=== PATIENT | male | born 1960 | race Caucasian/White ===

== ENCOUNTER 2018-05-04 20:37 | Inpatient (IN) ==
[2018-05-04] MEDS ORDERED: CATAPRES PO ONE ×2 (21:21→23:01)
--- NOTE | 2018-05-04 21:53 | Diag Imaging Result Doc PS360 ---
EXAM: KNEE 3 VIEWS LEFT 05/04/2018 HISTORY: fall, pain TECHNIQUE: Left knee three views COMMENT: There is no evidence of fracture or dislocation or periosteal reaction. There is some Maribell-Stieda calcification. Surgical clips are seen in the medial posterior thigh. IMPRESSION: No acute bony abnormality. Electronically signed by Gonzalez Gonzales 05/04/2018 9:50 PM
--- NOTE | 2018-05-04 21:54 | Diag Imaging Result Doc PS360 ---
EXAM: CHEST-1 VIEW 05/04/2018 HISTORY: chest pain TECHNIQUE: AP upright portable at 2137 COMMENT: There is ill-defined opacity in the medial right lower lobe. This is actually improved somewhat since the previous study of 10/08/2017. Otherwise there has been no significant change. IMPRESSION: Stable chest. Electronically signed by Gonzalez Gonzales 05/04/2018 9:51 PM
--- NOTE | 2018-05-04 21:54 | Diag Imaging Result Doc PS360 ---
EXAM: KNEE 3 VIEWS RIGHT 05/04/2018 HISTORY: right knee pain TECHNIQUE: Right knee three views COMMENT: There is calcification in the menisci. There is no evidence of acute fracture or dislocation. IMPRESSION: Chondrocalcinosis. No evidence of acute disease. Electronically signed by Gonzalez Gonzales 05/04/2018 9:52 PM
[2018-05-04 21:56] LABS: BASO# 0.04 X1000 (0.0-0.2); BASO% 0.4 % (0.0-0.8); EOS# 0.26 X1000 (0.0-0.7); EOS% 2.4 % (0.0-10.0); HEMATOCRIT 47.9 % (42.0-52.0); HEMOGLOBIN 14.8 g/dL (14.0-18.0); IMM GRAN# 0.02 X1000 (0.0-0.04); IMM GRAN% 0.2 % (0.0-0.5); LYMPH# 2.59 X1000 (1.2-3.4); LYMPH% 24.3 % (20.5-51.1); MCH 27.1 PG (27-31); MCHC 30.9 g/dL (33-37); MCV 87.7 FL (81-99); MONO# 1.01 X1000 (0.11-0.59); MONO% 9.5 % (1.7-9.3); MPV 12.2 FL (7.4-10.4); NEUT# 6.76 X1000 (1.4-6.5); NEUT% 63.2 % (42.2-75.2); PLT 222 X1000 (130-400); RBC 5.46 XMIL (4.7-6.1); RDW 13.7 % (11.5-14.5); WBC 10.68 X1000 (4.8-10.8)
[2018-05-04 21:57] LABS: AGAP 14; ALB/GLOB RATIO 1.9; ALBUMIN 4.7 g/dL (3.5-5.0); ALKALINE PHOSPHATASE 87 U/L (32-122); BUN 14 mg/dL (8-22); CALCIUM 9.6 mg/dL (8.8-10.2); CHLORIDE 99 mmol/L (98-107); CK TOTAL 59 U/L (24-204); COSMO 276; CREATININE 0.8 mg/dL (0.7-1.2); ESTIMATED GFR > 60; GLUCOSE 102 mg/dL (70-104); GOT 15 U/L (10-34); GPT 9 U/L (10-44); SODIUM 138 mmol/L (136-145); TCO2 25 mmol/L (25-35); TOTAL BILIRUBIN 0.34 mg/dL (0.20-1.00); TOTAL PROTEIN 7.2 g/dL (6.3-8.3)
[2018-05-04 22:21] LABS: URINE SOURCE CLEAN CATCH
[2018-05-04 22:25] LABS: BILIRUBIN URINE NEGATIVE (NEGATIVE); BLOOD URINE MODERATE (NEGATIVE); COLOR YELLOW; GLUCOSE URINE NEGATIVE (NEGATIVE); KETONE URINE NEGATIVE (NEGATIVE); LEUKOCYTES URINE NEGATIVE (NEGATIVE); NITRITE URINE NEGATIVE (NEGATIVE); PH URINE 5.5; PROTEIN URINE TRACE mg/dL (NEGATIVE); SP GRAVITY URINE 1.013; TURBIDITY URINE CLEAR (CLEAR); UR EPITHELIAL CELLS <10 /HPF (<10); URINE BACTERIA NEGATIVE /HPF; URINE RBC <10 /HPF (<10); URINE WBC <10 /HPF (<10); UROBILINOGEN URINE NORMAL (NORMAL)
[2018-05-04 22:40] LABS: UR AMPHETAMINES QUAL NONE DETECTED (NONE DETECT); UR BARBITUATES QUAL NONE DETECTED (NONE DETECT); UR BENZODIAZEPIN QUAL PRESUMPTIVE POSITIVE (NONE DETECT); UR CANNABINOIDS QUAL NONE DETECTED (NONE DETECT); UR COCAINE QUAL NONE DETECTED (NONE DETECT); UR METHADONE QUAL NONE DETECTED (NONE DETECT); UR OPIATES QUAL PRESUMPTIVE POSITIVE (NONE DETECT); UR OXYCODONE QUAL NONE DETECTED (NONE DETECT); UR PCP QUAL NONE DETECTED (NONE DETECT)
[2018-05-04] MEDS ORDERED: DILAUDID IV ONE (23:01)
[2018-05-04] MEDS ORDERED: ZOFRAN IV ONE (23:01)
[2018-05-04] MEDS ORDERED: LASIX IV ONE (23:57)
--- NOTE | 2018-05-05 01:54 | PROVIDER DOCUMENTATION ---
This chart was entered by Luz Nagy Scribe, acting as scribe for Sonu Espinoza MD. HPI-General Adult - General Chief Complaint: Chest Pain Stated Complaint: cp Time Seen by Provider: 05/04/18 20:58 Source: patient Allergies/Adverse Reactions: Patient Allergies Allergy/AdvReac Type Severity Reaction Status Date / Time quetiapine [From Seroquel] Allergy Mild Unknown Verified 05/04/18 21:42 acetaminophen Allergy FLUSHING Verified 05/04/18 21:42 [From Darvocet-N] codeine Allergy ABDOMINAL Verified 05/04/18 21:42 PAIN Penicillins Allergy Unknown Verified 05/04/18 21:43 propoxyphene napsylate * Allergy FLUSHING Verified 05/04/18 21:42 [From Darvocet-N] ketorolac tromethamine * AdvReac NAUSEA Verified 05/04/18 21:42 [From Toradol] naproxen AdvReac Unknown Verified 05/04/18 21:42 tramadol HCl * [From Ultram] AdvReac NAUSEA Verified 05/04/18 21:42 Home Medications: Home Medication List Medication Instructions Recorded Confirmed Last Taken Type Aspirin 81 mg PO DAILY 09/12/13 10/08/17 09/19/16 History 81 MG Albuterol Sulfate [Proair Hfa] 8.5 gm INH BID 02/21/14 10/08/17 09/19/16 History 8.5 GM Alprazolam [Xanax] 0.5 mg PO BID 10/08/17 10/08/17 Unknown History Amlodipine [Norvasc] 5 mg PO DAILY 10/08/17 10/08/17 Unknown History Budesonide/Formoterol Fumarate 10.2 gm IH BID 10/08/17 10/08/17 Unknown History [Symbicort 160-4.5 Mcg Inhaler] Calamine/Zinc Oxide [Baby Anti 85 gm TP DIRECTED 10/08/17 10/08/17 Unknown History Monkey Butt Cream] Guaifenesin [Guaifenesin ER] 600 mg PO BID 10/08/17 10/08/17 Unknown History Hydrocodone/Acetaminophen [[place] 1 each PO DIRECTED 10/08/17 10/08/17 Unknown History 10-325 Tablet] Isosorbide Mononitrate E.r. [Imdur] 30 mg PO DAILY 10/08/17 10/08/17 Unknown History Lidocaine 5% Patch [Lidoderm] 1 each TOP DAILY #60 patch 10/08/17 Unknown Rx Lisinopril 20 mg PO BID 10/08/17 10/08/17 Unknown History Metoprolol [Lopressor] 100 mg PO DAILY 10/08/17 10/08/17 Unknown History Nicotine [Nicotine Patch] 1 each TD DIRECTED 10/08/17 10/08/17 Unknown History Omeprazole [Prilosec] 20 mg PO DAILY@0700 10/08/17 10/08/17 Unknown History ROSUVAstatin [Crestor] 10 mg PO DAILY 10/08/17 10/08/17 Unknown History Mupirocin Cream [Bactroban Cream] 1 applicatn TOP TID #1 tube 02/08/18 Unknown Rx Oxymetazoline Nasal [place] [Afrin 2 spray ADAM Q12HR #1 bottle 02/08/18 Unknown Rx Nasal [place]] - History of Present Illness -Gen Adult Nature of Presenting Problems: Pt is 58/M presenting to ED via EMS. he sts that he has mid chest pain that goes down into his legs. He says it feels like it comes from his bones. Pt sts that around 4pm he passed out on the bed and sts that he wet himself, his partner found him when she got home around 8pm. Pt also c/o knot on stomach and base of penis that has been present for the last 2 months. Pt has hx of CABG Location of Pain/Injury: reports: lower body Pain Radiation: reports: no radiation Quality of Pain: reports: aching Severity: reports: moderate Onset/Duration: reports: just prior to arrival Timing: reports: still present Context/Activities at Onset: reports: none Modifying Factors: improves with: nothing Associated Symptoms: reports: denies symptoms. denies: fever/chills, headaches , nausea, shortness of breath, vomiting Similar Symptoms Previously?: No Recently seen or treated by another doctor?: No Review of Systems - Adult - REVIEW OF SYSTEMS - ADULT Constitutional: reports: no symptoms reported. denies: chills, fever Eyes: reports: no symptoms reported Ears, Nose, Mouth & Throat: reports: no symptoms reported Cardiovascular: reports: chest pain Respiratory: reports: no symptoms reported. denies: cough, shortness of breath , wheezing Gastrointestinal: reports: no symptoms reported Genitourinary: reports: no symptoms reported Musculoskeletal: reports: muscle aches (both legs) Integumentary: reports: no symptoms reported Neurological: reports: no symptoms reported. denies: dizziness/vertigo, headache/migraines Psychiatric: reports: no symptoms reported Endocrine: reports: no symptoms reported Hematologic/Lymphatic: reports: no symptoms reported Allergic/Immunologic: reports: no symptoms reported All Other Systems: Reviewed and Negative Past History - Adult - PAST MEDICAL HISTORY-ADULT Review of Records: reports: Old Records Reviewed, Nursing Assessment Review, Medications Reviewed, Social history reviewed & non-contributory. Major Childhood Illnesses: reports: denies history Cardiovascular: reports: HTN, hyperlipidemia, HI (2003) Gastrointestinal: reports: GERD Psychiatric: reports: anxiety Endocrine/Immune: reports: Diabetes Other Conditions: reports: other (back problems) - PRIOR SURGERIES/PROCEDURES Surgical/Procedure History: reports: CABG, back/neck, other (facial repair and back repair) - IMMUNIZATION STATUS Childhood Immunizations: See Nurse Assessment Flu Vaccine: See Nurse Assessment - SOCIAL HISTORY Smoking: less than 1 pack/day Substance Use: none/never Alcohol Use Frequency: never Living Situation: family Physical Exam-General - PHYSICAL EXAM-ADULT Initial Vital Signs Reviewed: Yes - CONSTITUTIONAL General Appearance: appears well, alert, no apparent distress, other (bad dentation) - EYES Eyes: PERRL/EOMI - HEAD, EARS, NOSE, MOUTH & THROAT HENMT: normocephalic/atraumatic, moist mucous membranes, normal ENT inspection, TMs normal, pharynx normal - NECK Neck: non-tender, full range of motion, supple, normal inspection - RESPIRATORY Respiratory: chest non-tender, lungs clear, normal breath sounds - CARDIOVASCULAR Cardiovascular: regular rate, rhythm, no edema - GASTROINTESTINAL (ABDOMEN) Abdominal Exam: normal bowel sounds, non tender, soft, hernia (umbilical hernia present upon exam) - GENITOURINARY Male Genitalia: normal genitalia, uncircumcised - MUSCULOSKELETAL Back Exam: normal inspection Extremity: normal range of motion, non-tender, normal gait, normal inspection - SKIN Integumentary: normal color, normal turgor, warm/dry - NEUROLOGIC Neurologic: grossly normal - PSYCHIATRIC Psych/Mental Status: normal mood/affect, normal thought content, normal thought process, oriented x 3 Progress - PLAN OF CARE/RESULTS Progress/Plan/Lab Results: Vital Signs - 8 hr 05/04/18 20:46 05/04/18 20:59 05/04/18 21:00 Temperature 98 F 97.5 F L Pulse Rate 100 H 95 H 97 H Respiratory Rate 20 20 14 Blood Pressure 181/119 188/126 173/119 O2 Sat by Pulse Oximetry 94 L 95 95 05/04/18 21:01 05/04/18 21:02 05/04/18 21:10 Temperature Pulse Rate 95 H 97 H 110 H Respiratory Rate 21 21 24 Blood Pressure 188/126 O2 Sat by Pulse Oximetry 95 94 L 94 L 05/04/18 21:20 Temperature Pulse Rate 95 H Respiratory Rate 21 Blood Pressure O2 Sat by Pulse Oximetry 95 Orders Category Date Time Status CHEST-1 VIEW [RAD] Stat Exams 05/04/18 21:19 Ordered KNEE 3 VIEWS LEFT [RAD] Stat Exams 05/04/18 21:20 Ordered KNEE 3 VIEWS RIGHT [RAD] Stat Exams 05/04/18 21:19 Ordered CBC WITH ELECTRONIC DIFF [HEME] Stat Lab 05/04/18 21:13 Uncollected CK TOTAL [CHEM] Stat Lab 05/04/18 21:19 Uncollected COMPREHENSIVE METABOLIC PANEL [CHEM] Stat Lab 05/04/18 21:19 Uncollected PRO B-NATRIURETIC PEPTIDE Stat Lab 05/04/18 21:19 Uncollected TROPONIN T Stat Lab 05/04/18 21:19 Uncollected UA [URINALYSIS] [URINALYSIS] Stat Lab 05/04/18 21:20 Uncollected URINE DRUG SCREEN Stat Lab 05/04/18 21:20 Uncollected Clonidine [Catapres] Med 05/04/18 21:21 Discontinued 0.1 mg PO NOW ONE EKG [EKG] Stat Ther 05/04/18 20:36 Ordered Result Diagrams: 05/04/18 21:12 05/04/18 21:12 - CONSULTS/PCP/HOSPITALIST Notification #1 *Consult/PCP/Hospitalist*: Dr Hudson Time Discussed: 01:53 Consult Disposition: Will see in ED, Admit Departure - Departure Date of Disposition Decision: 05/05/18 Time of Disposition Decision: 01:53 DIAGNOSIS: Chest pain, HTN (hypertension) Disposition: ADMITTED INPATIENT 09 Certified Medical Emergency: Emergent Condition: Fair Referrals and Follow-Ups: None,PCP [Primary Care Provider] - - Critical Care Note This patient required my direct & personal management of CC.: No Attestation - Physician/ ADAN Attestation Patient care was provided by Advanced Practice Provider:: No The physician spent face to face time with patient:: Yes Advanced Practice Provider documentation review:: Supervising physician onsite and consulted in the evaluation and care of this patient. The physician did have a face to face encounter with the patient. This chart was documented by the indicated scribe, (Luz Nagy, Nate) and accurately reflects the services I performed and decisions made by me, Sonu Espinoza MD, as attested by the provider's signature.
[2018-05-05] MEDS ORDERED: ZOFRAN IV PRN (03:05)
[2018-05-05] MEDS ORDERED: TYLENOL PO PRN (03:05)
[2018-05-05] MEDS ORDERED: NITROGLYCERIN SL PRN (03:05)
[2018-05-05] MEDS: LOVENOX SUBQ SCH (04:30)
[2018-05-05 05:25] LABS: HEMOGLOBIN A1C 5.5 % (4.8-6.0)
--- NOTE | 2018-05-05 05:25 | HISTORY AND PHYSICAL ---
CHIEF COMPLAINT: Chest pain. HISTORY OF PRESENT ILLNESS: This is a 58-year-old male who comes into the emergency room with the complaint of chest pain midsternal. He states that it radiates down into his legs. Feels as if it is coming out of his bones. He did not note it radiating to his neck, back, jaw or arms. Also had a complaint of feeling as if he has a knot on his stomach which appears to be an umbilical hernia. Also feels like he has a knot at the base of the glans of his penis. States both have been present for around 2 months. He has a history of coronary artery disease, hypertension, hyperlipidemia, diabetes mellitus type 2, anxiety, GERD, status post myocardial infarction and CABG. Chest x-ray was grossly normal. Laboratory data was grossly normal. He will be admitted for further evaluation and treatment. PAST MEDICAL HISTORY: See HPI. PREVIOUS SURGICAL HISTORY: 1. CABG. 2. Back surgery. 3. Facial repair. FAMILY HISTORY: Positive for coronary artery disease and diabetes mellitus. SOCIAL HISTORY: No alcohol or illicit drugs. Lives with family. Smokes less than a pack of cigarettes per day, has for multiple years. Smoking cessation was gone over with the patient. He denies wanting to quit at this time. ALLERGIES: Seroquel, Darvocet, codeine, penicillin, Toradol, Ultram and naproxen. HOME MEDICATIONS: A list of home medications has not been reconciled. An order was placed for Nursing to reconcile home medications and place in the computer. The patient was able to tell me he took [place] for pain as well as Xanax an unknown dose for anxiety. Also states that he takes blood pressure and cholesterol medications. We will restart when reconciled. REVIEW OF SYSTEMS: Fourteen point review of systems conducted with the patient. Pertinent positives listed above in the HPI. All other systems reviewed and found to be negative. PHYSICAL EXAMINATION: VITAL SIGNS: Temperature 97.5, pulse 70, respirations 13, blood pressure 91/56 , oxygen saturation 96% on room air. GENERAL: A 58-year-old male lying in the ER stretcher, answers all questions appropriately. He is alert and oriented times 3, is in no acute distress. HEENT: Head is atraumatic, normocephalic. Pupils equal, round, reactive to light. Extraocular eye movement is intact. Sclerae are anicteric. Conjunctiva is pink. Oral mucosa is mildly dry. Poor dentition noted. NECK: Supple. No JVD. No thyromegaly. Trachea is midline. No cervical lymphadenopathy. CARDIAC: S1, S2 appreciated. No murmurs, gallops, rubs. LUNGS: Clear to auscultation bilaterally. Decreased bilaterally. No rhonchi, wheezes, rales. Symmetric rise and fall with respirations. ABDOMEN: Soft, nondistended, nontender. Bowel sounds present all 4 quadrants, normoactive. No pulsatile mass. No organomegaly. Reducible umbilical hernia noted. GENITOURINARY: No bladder distention. Uncircumcised. Otherwise normal examination. EXTREMITIES: No clubbing, cyanosis, or edema. Two-plus pedal pulses bilaterally. NEUROLOGICAL: Alert and oriented times 3. Cranial nerves II through XII grossly intact. DIAGNOSTIC DATA: Chest x-ray: There is an ill-defined opacity in the medial right lower lobe. X- ray of left knee: No acute bony abnormality. LABORATORY DATA: CBC and chemistry within normal limits. ProBNP mildly elevated at 704. CK 59. Troponin less than 0.010. Urine: Moderate blood. Positive for opiates and benzodiazepines in his urine drug screen. ASSESSMENT AND PLAN: 1. Chest pain, rule out acute myocardial infarction. Order an echocardiogram tomorrow morning. Patient was hypertensive which has been controlled in the emergency room. We will continue home medications and continue to monitor when they are reconciled. Nitroglycerin as needed for chest pain. Trend cardiac enzymes. We will also order a CT of thorax as there was noted to be an ill-defined opacity which was noted to be better than on previous examination. 2. Hypertension. Continue home medications when reconciled. He was given clonidine in the emergency room and is now normotensive. 3. Hyperlipidemia. Continue statin when reconciled. We will check a lipid profile as well. 4. Chronic pain syndrome. We will continue patient's Q[place] when reconciled. At this time, we will give [place] 7.5 q.4 hours as needed for pain. 5. Tobacco use. Smoking cessation was gone over with the patient. He denies wanting to quit at this time. Further recommendations per patient clinical course. Dictated by SARAH Fonseca for Collins Hudson MD I have performed a face to face diagnostic evaluation. Labs and Xrays- reviewed. Exam- chest- clear A/P- Chest Pain- Admit- cardiac workup Dr. Hudson cc: SARAH Fonseca MD MTDD
[2018-05-05 06:32] LABS: BASO# 0.03 X1000 (0.0-0.2); BASO% 0.3 % (0.0-0.8); EOS# 0.22 X1000 (0.0-0.7); HEMATOCRIT 45.8 % (42.0-52.0); HEMOGLOBIN 13.9 g/dL (14.0-18.0); LYMPH# 2.64 X1000 (1.2-3.4); LYMPH% 24.4 % (20.5-51.1); MCH 27.4 PG (27-31); MCHC 30.3 g/dL (33-37); MCV 90.2 FL (81-99); MONO# 1.24 X1000 (0.11-0.59); MONO% 11.4 % (1.7-9.3); NEUT# 6.71 X1000 (1.4-6.5); NEUT% 61.9 % (42.2-75.2); PLT 240 X1000 (130-400); RBC 5.08 XMIL (4.7-6.1); RDW 14.2 % (11.5-14.5); WBC 10.84 X1000 (4.8-10.8)
[2018-05-05 07:11] LABS: AGAP 16; BUN 16 mg/dL (8-22); CALCIUM 9.6 mg/dL (8.8-10.2); CHLORIDE 98 mmol/L (98-107); COSMO 279; CREATININE 0.9 mg/dL (0.7-1.2); ESTIMATED GFR > 60; GLUCOSE 102 mg/dL (70-104); MAGNESIUM 1.7 mg/dL (1.5-2.7); POTASSIUM 4.3 mmol/L (3.5-5.1); SODIUM 139 mmol/L (136-145); TCO2 25 mmol/L (25-35)
--- NOTE | 2018-05-05 07:39 | Diag Imaging Result Doc PS360 ---
EXAM: CT THORAX W/O CONTRAST 05/05/2018 HISTORY: pneumonia? TECHNIQUE: This exam was performed using automated exposure control, adjustment of mA or kV according to patient size, and/or use of iterative reconstruction technique. COMMENT: There are emphysematous changes with subpleural blebs bilaterally. There is a linear opacity throughout much of the right lower lobe. There are no previous studies. This may be result of fibrosis and/or atelectasis. There is some pleural thickening and/or atelectatic or fibrotic change in the medial portion of the right middle lobe. A similar appearance is present in the lingula. There is extensive coronary calcification. There has been previous sternotomy. There are no abnormal fluid collections. There is a 16 mm cyst in the posterior right hepatic lobe. Otherwise there is no evidence of acute disease in the visualized portion of the abdomen. There is no evidence of significant adenopathy. There is no evidence of acute bony abnormality. IMPRESSION: Atelectatic and/or fibrotic changes in the right lower lobe, right middle lobe and lingula. COPD. Electronically signed by Gonzalez Gonzales 05/05/2018 7:36 AM
[2018-05-05] MEDS: PRILOSEC PO SCH ×2 (08:10→08:20)
--- NOTE | 2018-05-05 18:16 | CONSULTATION ---
DATE OF CONSULTATION: 05/05/2018 IMPRESSION: 1. Atypical chest pain with associated cough and some hemoptysis. 2. Atherosclerotic coronary disease with previous coronary bypass surgery in the past. Details not clear. Patient relates having a stress nuclear study in [place] in the last 6 weeks which was negative. Records not available at time of dictation. 3. COPD. 4. Chronic heavy cigarette use. 5. Hypertension. 6. Hyperlipidemia. 7. Type 2 diabetes mellitus. 8. Psychiatric disorder of unclear nature. Patient manifests continuous stream of loosely associated thoughts many of which seem delusional. RECOMMENDATIONS: 1. Followup echocardiography. 2. Obtain results of recent stress myocardial perfusion study if available and if indeed this was performed. If this was negative, would consider alternative etiologies for patient's atypical chest pain such as recurrent bronchitis. 3. Smoking cessation strongly advised. HISTORY: This 58-year-old white male with past history of previous coronary bypass grafting several years ago in [place], hypertension, hyperlipidemia, type 2 diabetes mellitus and ill defined psychiatric disorder was admitted to emergency room with multiple complaints some which include chest discomfort as well as hemoptysis. He expressed to me he has a fear that he was bleeding around his heart. He indicates some left parasternal discomfort which is nonexertional. He characterizes symptoms rather vaguely. He has had cough productive of white sputum with some hemoptysis. He is not aware of any fever. PAST MEDICAL HISTORY: 1. Atherosclerotic coronary disease with previous coronary bypass grafting in the past. 2. Hypertension. 3. Hyperlipidemia. 4. Type 2 diabetes mellitus. 5. Gastroesophageal reflux disease. 6. Ill-defined psychiatric disorder. PAST SURGICAL HISTORY: Includes coronary bypass grafting, unspecified back surgery and unspecified facial repair. ALLERGIES: Allergic or intolerant to multiple medications as listed. It is noteworthy that Seroquel is on the list as well as Toradol, Ultram and naproxen. Also intolerant of penicillin, codeine and Darvocet. SOCIAL HISTORY: The patient describes chronic cigarette use at ill defined rate. He does not use alcohol or illicit drugs. FAMILY HISTORY: Positive for coronary disease. REVIEW OF SYSTEMS: Pulmonary: Noteworthy for cough and wheezing. He has also had sputum production as well as some hemoptysis. Gastrointestinal: Noncontributory beyond history of present illness. Constitutional: Negative for fever. Remainder of review of systems negative/noncontributory with 14 total systems reviewed. PHYSICAL EXAMINATION: This is a middle-aged white male who appears older than stated age.Vital Signs: Blood pressure 141/88, heart rate 98, oxygen saturation 97%. HEENT: Extraocular movements intact. Mucous membranes are moist. Neck: Supple. No jugular venous distention. There are no carotid bruits. Chest: Auscultation of chest reveals prominent scattered expiratory wheezes. Patient promptly developed significant cough when he tries to take a deep breath. Cardiac Exam: Reveals a regular rate and rhythm without appreciable murmur or gallop. Abdomen: Soft, nontender. Bowel sounds are audible. Extremities: Without edema. Neurologic: Reveals him to be alert and responsive. Speech is fluent. He moves all 4 extremities equally well. Skin: Warm and dry. Psychiatric: Reveals him to demonstrate a constant stream of conversation with loosely associated thoughts as well as some seemingly delusional thinking. DATA: EKG not yet scanned into electronic medical record. LABORATORY DATA: Includes a white blood cell count 10.84, hematocrit 45.8, hemoglobin 13.9, platelet count 240,000. Sodium 139, potassium 4.3, chloride 98, carbon dioxide 25, BUN 16, creatinine 0.9, glucose 102. Initial troponin less 0.01. Followup troponin less than 0.01. CPK 59, followup CPK 66. Urine drug screen positive for opiates and benzodiazepines. Is noteworthy that patient has both hydrocodone and Xanax on his medication list. cc: Daniel Castle MD
[2018-05-05] MEDS: NORCO-7.5 PO PRN (21:54)
[2018-05-05] MEDS ORDERED: SYMBICORT 160/4.5 MICROGM INHALER INH SCH (23:15)
[2018-05-05] MEDS: XANAX PO SCH (23:27)
[2018-05-06] MEDS: MUCINEX PO SCH ×3 (00:19→20:37)
[2018-05-06] MEDS: BACTROBAN CREAM TOP SCH ×4 (00:20→23:28)
[2018-05-06] MEDS: LOPRESSOR PO SCH ×3 (00:20→20:37)
[2018-05-06] MEDS: LOVENOX SUBQ SCH (03:20)
[2018-05-06] MEDS: PRILOSEC PO SCH (06:42)
[2018-05-06] MEDS ORDERED: NICOTINE TD SCH (07:30)
[2018-05-06] MEDS ORDERED: DUONEB (A & A) INH PRN (07:40)
[2018-05-06] MEDS ORDERED: XANAX PO SCH (09:00)
[2018-05-06] MEDS ORDERED: VENTOLIN HFA INH SCH (09:00)
--- NOTE | 2018-05-06 09:01 | PROGRESS NOTE ---
DATE: 05/06/2018 SUBJECTIVE: The patient reports still complaining of chest pain, substernal, but according to him, it goes through the stomach, to the abdomen and reaches the testicles. He reports also having a lot of greenish sputum coming on that he thinks is also contributing to this chest pain as well. OBJECTIVE: Vital Signs: Temperature 98.5 degrees, heart rate 65, respiratory rate 12, blood pressure 113/56, O2 saturation 98% on 2 L nasal cannula. General Examination: This is a chronically ill-looking, 58-year-old, male, lying in bed, in no acute distress. HEENT: Head is normocephalic and atraumatic. Poor dentition. Mucous membranes dry. Neck: Supple. No JVD noted. No carotid bruits. No lymphadenopathy. No thyromegaly. Cardiovascular Examination: S1 and S2 heard. No murmurs, gallops, or rubs. Regular rate and rhythm. Respiratory Examination: Coarse breath sounds and rhonchi in both pulmonary bases along with minimal wheezing. Patient is not using any accessory muscles or having work of breathing. Abdomen: Soft, nontender to palpation. Bowel sounds present. No organomegaly. Extremities: No clubbing, cyanosis, or edema. Peripheral pulses present in both legs. Neurological Examination: The patient is alert and oriented x3. Moves 4 extremities. Lab: There are no labs from today but from yesterday, white cell count was slightly elevated at 10.84. Normal BMP. Troponin has been checked four times and it has been negative. Last time that we had checked was yesterday at 7:26 p.m. ASSESSMENT AND PLAN: 1. Chest pain. We have checked four times the troponins and those are negative so an acute coronary syndrome has been ruled out. The patient continues to complain of chest pain that is somewhat atypical. At this time, an echocardiogram is done but it has not been read yet. We will see what it shows. According to the patient, also, he had a recent stress myocardial perfusion study that we are waiting for cardiology to read. I think, considering his symptoms of sputum production, greenish, and also a marked cough, I think this patient has an acute bronchitis. I am going to start antibiotics on him and breathing treatments as well. We will see how this patient does. 2. Hypertension. Blood pressure is under control. We will continue with the same management. 3. Hyperlipidemia. Triglycerides are elevated but cholesterol level is okay at this point. We will continue with the same management. 4. Chronic pain syndrome. At this point, the patient has been started on [place] 7.5 mg 1 tablet by mouth every 4 hours. 5. Tobacco abuse. Patient has been strongly advised about stopping smoking. 6. Disposition. At this point, we will monitor him in [facility]. We will check with cardiology if this patient can be transferred to a different floor. We will see if they are planning to do any further cardiovascular examinations or not. cc: Jerrell Redding MD
[2018-05-06] MEDS: PRINIVIL PO SCH (09:03)
[2018-05-06] MEDS: CRESTOR PO SCH (09:03)
[2018-05-06] MEDS: ASPIRIN PO SCH (09:03)
[2018-05-06] MEDS: XANAX PO SCH ×2 (09:03→20:37)
[2018-05-06] MEDS: NORVASC PO SCH (09:03)
[2018-05-06] MEDS: IMDUR PO SCH (09:04)
[2018-05-06] MEDS: LEVAQUIN 750 MG/D5W 750 MG/150 ML IVPB IV SCH (09:09)
[2018-05-06] MEDS: LIDODERM TOP SCH (09:10)
--- NOTE | 2018-05-06 09:44 | ECHO REPORT ---
ORDER DATE: 05/05/2018 MEASUREMENTS: Left ventricular end-diastolic diameter 4.6, end-systolic diameter 3.3, septal thickness 1.5, aortic root 4.2, left atrium 3.9. SUMMARY: 1. Technically difficult study due to limited acoustic window quality. 2. Aortic valve is trileaflet and opens normally on 2-dimensional images. The peak gradient across the aortic valve is less than 10 mmHg. Mitral, tricuspid, and pulmonic valves are without evidence of structural abnormality with trace mitral regurgitation and trace pulmonic insufficiency. The pulmonic valve is not well demonstrated. The aortic root is mildly enlarged. 3. Normal left ventricular upper chamber size with moderate concentric left ventricular hypertrophy demonstrated. The estimated left ventricular ejection fraction appears to be approximately 55%. No focal wall motion abnormalities can be appreciated. Doppler suggests grade 1 left ventricular diastolic dysfunction. Left atrium is borderline enlarged. Right atrium and right ventricle are normal in size with grossly preserved right ventricular systolic function. 4. No pericardial effusion. 5. Appearance of inferior vena cava suggests normal central venous pressure. cc: MD James Zhao CRNP
[2018-05-06] MEDS: ROCEPHIN 2 GM in NS 50 ML IV SCH (10:24)
[2018-05-06] MEDS: DUONEB (A & A) INH SCH ×4 (11:53→23:20)
[2018-05-06] MEDS: NORCO-7.5 PO PRN ×2 (17:40→20:40)
--- NOTE | 2018-05-06 21:03 | PROGRESS NOTE ---
DATE: 05/06/2018 SUBJECTIVE: The patient reports some improvement in his cough and sputum production. He complains of lower back discomfort. He has a lot of somatic complaints and essentially seems to hurt all over. He does not describe any chest symptoms that sound like angina. OBJECTIVE: Blood pressure 132/80, heart rate 74, oxygen saturation 97%. There is no significant jugular venous distention. Auscultation chest reveals scant rhonchi. There has been significant improvement in air movement. Cardiac exam reveals a regular rate and rhythm without appreciable murmur or gallop. There is no evidence of peripheral edema. LABORATORY DATA: Includes initial troponin less than 0.01, followup troponin less than 0.01. Records from [facility] obtained. He had negative stress myocardial perfusion study 6 months ago and records indicate a very similar hospitalization at that time with COPD exacerbation, chest pain and cough. IMPRESSION: 1. Atypical chest pain with associated cough and some hemoptysis. I suspect he has acute pulmonary infectious process probably bronchitis, which is recurrent. 2. Atherosclerotic coronary disease with previous coronary bypass grafting. The patient had negative stress myocardial study approximately 6 months ago. Serial cardiac enzymes this admission normal. 3. Chronic obstructive pulmonary disease. 4. Chronic heavy cigarette use. 5. Hypertension. 6. Hyperlipidemia. 7. Type 2 diabetes mellitus. 8. Psychiatric disorder of unclear nature. Records indicate history of anxiety. However he does seem to have some tendency for speaking a stream of loosely associated topics and some things he has said seem to represent delusions or possibly confabulation. RECOMMENDATIONS: 1. He appears clinically stable from a standpoint of his cardiac disease. Continued medical management is most appropriate. 2. Agree with plans to treat him for acute pulmonary process/bronchitis. 3. Smoking cessation again strongly advised. 4. Be reasonable for him to be discharged home to pursue outpatient therapy in next 24 hours. cc: Daniel Castle MD
[2018-05-07] MEDS: DUONEB (A & A) INH SCH ×3 (03:30→11:24)
[2018-05-07] MEDS: LOVENOX SUBQ SCH (04:00)
[2018-05-07] MEDS: NORCO-7.5 PO PRN (04:07)
[2018-05-07] MEDS: PRILOSEC PO SCH (06:55)
[2018-05-07 07:34] VITALS: BP 115/84
[2018-05-07] MEDS: ROCEPHIN 2 GM in NS 50 ML IV SCH (07:44)
[2018-05-07] MEDS ORDERED: LEXISCAN ONE (09:28)
[2018-05-07] MEDS ORDERED: AMINOPHYLLINE ONE (09:58)
[2018-05-07] MEDS: MUCINEX PO SCH (11:09)
[2018-05-07] MEDS: LEVAQUIN 750 MG/D5W 750 MG/150 ML IVPB IV SCH (11:09)
[2018-05-07] MEDS: CRESTOR PO SCH (11:09)
[2018-05-07] MEDS: ASPIRIN PO SCH (11:09)
[2018-05-07] MEDS: NORVASC PO SCH (11:10)
[2018-05-07] MEDS: PRINIVIL PO SCH (11:10)
[2018-05-07] MEDS: LOPRESSOR PO SCH (11:10)
[2018-05-07] MEDS: XANAX PO SCH (11:10)
[2018-05-07] MEDS: IMDUR PO SCH (11:10)
--- NOTE | 2018-05-07 11:26 | EKG Report ---
Test Performed on : 05/04/2018 8:41:30 PM Test Reason : CP Blood Pressure : / mmHG Vent. Rate : 100 BPM Atrial Rate : 100 BPM P-R Int : 158 ms QRS Dur : 112 ms QT Int : 360 ms P-R-T Axes : 050 007 084 degrees QTc Int : 464 ms Normal sinus rhythm. Possible Left atrial enlargement Inferior infarct (cited on or before 12-SEP-2013) Cannot rule out Anterior infarct , age undetermined Abnormal ECG When compared with ECG of 08-OCT-2017 18:15, (Unconfirmed) No significant change was found Unconfirmed Result
[2018-05-07] MEDS: LIDODERM TOP SCH (11:42)
--- NOTE | 2018-05-07 14:50 | EKG Report ---
Test Performed on : 05/05/2018 05:09:13 AM Test Reason : cp Blood Pressure : / mmHG Vent. Rate : 088 BPM Atrial Rate : 088 BPM P-R Int : 148 ms QRS Dur : 108 ms QT Int : 384 ms P-R-T Axes : 048 028 118 degrees QTc Int : 464 ms Normal sinus rhythm. Inferior infarct (cited on or before 12-SEP-2013) ST & T wave abnormality, consider lateral ischemia Abnormal ECG When compared with ECG of 04-MAY-2018 20:41, (Unconfirmed) No significant change was found Unconfirmed Result
--- NOTE | 2018-05-07 15:35 | Diag Imaging Result Document ---
PROCEDURE NAME: MYOCARDIAL PERF SCAN, STR/REST - 05/07/2018 STUDY: Rest/stress Lexiscan myocardial perfusion study. REQUESTING PHYSICIAN: Dr. Benson. INDICATION: Chest pain. Abnormal EKG. DESCRIPTION: The patient came into the nuclear lab, received a rest injection of technetium-99 sestamibi 15.4 mCi. Multiple tomographic views of the cardiac structures were obtained at rest. Subsequently, the patient underwent infusion of Lexiscan per protocol. At peak infusion was injected with technetium-99 sestamibi 42.8 mCi. Multiple tomographic views of the cardiac structures were obtained following the completion of the protocol. SUMMARY OF ELECTROCARDIOGRAPHIC PORTION OF STUDY: Resting ECG shows sinus rhythm with rate of 84 beats per minute. Resting ECG shows a very deep Q wave in the inferior leads, suggesting old inferior scar with diffuse ST abnormality in lateral leads. PVCs are noted. During the protocol, the heart rate increased to a maximum of 100 beats per minute. Blood pressure dropped to 86/66. The patient reported no chest pain, shortness of breath, or palpitations. ECG showed no significant changes. During the recovery phase, no significant changes were noted. In summary, the electrocardiographic response to infusion of Lexiscan is unremarkable. The patient demonstrates old inferior scar on the resting ECG. SUMMARY OF THE MYOCARDIAL PERFUSION PORTION OF THE STUDY: Poststress tomographic views of the left ventricle showed extensive, severe inferior wall defect. Rest images showed the defect is fixed. The polar plots revealed the same. There is evidence of an extensive inferior wall scar. This appears to be transmural. Gated SPECT shows relatively preserved ejection fraction of 54%. End systolic volume 80 mL. The lung/heart ratio is normal at 0.42. The TID is 1.12. IMPRESSION: In summary, this study shows: 1. Abnormal resting ECG with unremarkable response to infusion of Lexiscan. 2. Abnormal poststress myocardial perfusion scan. There is scintigraphic evidence of an extensive inferior wall scar, transmural, without any evidence of inducible ischemia. 3. Preserved left ventricular systolic function with ejection fraction estimated at 54% with inferior hypokinesis. Using the MyoMetrix protocol it is 47%, also with inferior hypokinesis. Clinical correlation is recommended. cc: MD Jerrell Hernandez MD [facility]
--- NOTE | 2018-05-08 05:01 | DISCHARGE SUMMARY ---
ADMISSION DATE: 05/06/2018 DISCHARGE DATE: 05/07/2018 CONSULTATIONS: Dr. Daniel Castle with Cardiology. PERTINENT PROCEDURES: 1. Chest CT showed atelectasis and/or fibrotic changes in the right lower lobe, right middle lobe, and COPD. 2. Echocardiogram: EF of 55%, suggest grade 1 left ventricular diastolic dysfunction. 3. Left knee x-ray: No acute bony abnormality. 4. Right knee x-ray: Chondrocalcinosis, no evidence of acute disease. DISCHARGE DIAGNOSES: 1. Atypical chest pain with associated cough and hemoptysis. Four sets of cardiac enzymes have been negative. He has been evaluated by Cardiology, who felt this was a pulmonary infectious process, likely bronchitis. He will continue on his cardiac disease medical management. 2. Acute bronchitis. The patient has been on antibiotics and bronchodilators. 3. Hypertension, controlled. Continue home medications. 4. Hyperlipidemia. The patient will continue on statin. 5. Chronic pain syndrome. Continue home regimen. 6. Tobacco abuse, the patient has been counseled daily about smoking cessation as well as the means to quit. HOSPITAL COURSE: Mr. Nichols is a 58-year-old gentleman, who came to the ED with complaint of chest pain that was midsternal and radiates down to his legs. He feels as if it is coming out of his bones. He did not have any radiating to his neck, back, jaw, or arms. He also complained of feeling a knot on his stomach, which appeared to be an umbilical hernia. He also had a knot at the base of his glans of his penis. States that both have been present for around 2 months. He has a known history of coronary artery disease, hypertension, hyperlipidemia, type 2 diabetes, anxiety, and GERD, status post SC with CABG. His chest x-ray was grossly normal. His laboratory data was grossly normal. Four sets of cardiac enzymes were normal. He was felt to have acute bronchitis, was initiated on IV antibiotics and bronchodilators. His chest x-ray has remained clear. He has been cleared by Cardiology, and will be discharged home with self care. DISCHARGE DIET: Healthy heart. DISCHARGE MEDICATIONS: 1. ProAir inhaler 8.5 g inhaled b.i.d. 2. Xanax 0.5 mg p.o. b.i.d. 3. Norvasc 5 mg p.o. daily. 4. Aspirin 81 mg p.o. daily. 5. Symbicort 160-4.5 mcg inhaler 10.2 g inhaled b.i.d. 6. Baby Anti-Monkey Butt cream 85 g topical as directed. 7. Guaifenesin ER 600 mg p.o. b.i.d. 8. Tilghman 10/325 one each p.o. as directed. 9. Imdur 30 mg p.o. daily. 10. Lisinopril 20 mg p.o. b.i.d. 11. Lopressor 100 mg p.o. daily. 12. Nicotine patch 1 each TD as directed. 13. Prilosec 20 mg p.o. daily. 14. Crestor 10 mg p.o. daily. 15. Nitroglycerin 0.4 mg sublingual q.5 minutes p.r.n. 16. DuoNeb 3 mL inhaled q.4 hours p.r.n. 17. Omnicef 300 mg p.o. b.i.d. 18. Lidoderm patch 5% 1 each topical apply to painful area up 12 hours per day and may use 2 at a time. 19. Bactroban cream, 1 application topical t.i.d. FOLLOWUP: Mr. Nichols is being discharged home with self care. He is to take all medications as prescribed. He can return to the ED or call 911 for any worsening of symptoms. Dictated by SARAH Merlos for Jerrell Redding MD cc: Jerrell Redding MD
== END 2018-05-07 13:47 | disposition home or self-care (01) | DRG 202 ==
LOC: SUPCPDRO → 3S 20:37 → ED 20:37 → SUATTDRO 05-05 06:22 → 3N 05-06 17:00
PROVIDERS: ATTEND Internal Medicine
CPT/HCPCS: 71010; 71045; 71250; 73562; 78452; 80048; 80053; 80061; 80101; 80301; 80307; 80324; 80345; 80346; 80353; 80358; 80361; 80365; 81001; 82550; 83036; 83721; 83735; 83880; 83992; 84484; 85025; 93005; 93017; 93306; 94640; 94761; 96372; 96374; 96375; 99285; A9270; A9500; G0431; G0434; G0479; G0480; J0280; J0696; J0820; J1170; J1650; J1940; J1956; J2405; J2785

== ENCOUNTER 2018-10-08 01:21 | Inpatient (IN) ==
[2018-10-08] MEDS ORDERED: NS 1,000 ML IV ONE ×2 (01:31→09:03)
[2018-10-08] MEDS ORDERED: KETAMINE IV ONE (01:31)
[2018-10-08] MEDS ORDERED: DILAUDID ONE (01:41)
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
[2018-10-08 03:31] LABS: URINE SOURCE CATH
[2018-10-08 03:37] LABS: BILIRUBIN URINE NEGATIVE (NEGATIVE); BLOOD URINE TRACE (NEGATIVE); COLOR YELLOW; GLUCOSE URINE NEGATIVE (NEGATIVE); KETONE URINE NEGATIVE (NEGATIVE); LEUKOCYTES URINE NEGATIVE (NEGATIVE); NITRITE URINE NEGATIVE (NEGATIVE); PH URINE 5.5; PROTEIN URINE TRACE mg/dL (NEGATIVE); SP GRAVITY URINE 1.017; TURBIDITY URINE CLEAR (CLEAR); UROBILINOGEN URINE NORMAL (NORMAL)
[2018-10-08 03:39] LABS: UR EPITHELIAL CELLS <10 /HPF (<10); URINE BACTERIA NEGATIVE /HPF; URINE RBC <10 /HPF (<10); URINE WBC <10 /HPF (<10)
[2018-10-08 03:42] LABS: INR 0.95; PROTIME 13.5 Seconds (11.0-16.0)
[2018-10-08 03:43] LABS: PTT 29.5 Seconds (22.3-41.8)
[2018-10-08 03:45] LABS: ALB/GLOB RATIO 1.4; ALBUMIN 4.1 g/dL (3.5-5.0); CREATININE 1.3 mg/dL (0.7-1.2); POTASSIUM 3.6 mmol/L (3.5-5.1); TOTAL BILIRUBIN 0.7 mg/dL (0.20-1.00); TOTAL PROTEIN 7.1 g/dL (6.3-8.3)
[2018-10-08 03:47] LABS: BASO# 0.02 X1000 (0.0-0.2); BASO% 0.1 % (0.0-0.8); EOS# 0.13 X1000 (0.0-0.7); EOS% 0.8 % (0.0-10.0); HEMATOCRIT 45.1 % (42.0-52.0); HEMOGLOBIN 14.4 g/dL (14.0-18.0); IMM GRAN# 0.05 X1000 (0.0-0.04); IMM GRAN% 0.3 % (0.0-0.5); LYMPH# 1.44 X1000 (1.2-3.4); LYMPH% 8.9 % (20.5-51.1); MCH 28.5 PG (27-31); MCHC 31.9 g/dL (33-37); MCV 89.3 FL (81-99); MONO# 1.59 X1000 (0.11-0.59); MONO% 9.8 % (1.7-9.3); MPV 12.1 FL (7.4-10.4); NEUT# 13.04 X1000 (1.4-6.5); NEUT% 80.1 % (42.2-75.2); PLT 191 X1000 (130-400); RBC 5.05 XMIL (4.7-6.1); RDW 15.5 % (11.5-14.5); WBC 16.27 X1000 (4.8-10.8)
[2018-10-08 04:02] LABS: UR AMPHETAMINES QUAL NONE DETECTED (NONE DETECT); UR BARBITUATES QUAL NONE DETECTED (NONE DETECT); UR BENZODIAZEPIN QUAL PRESUMPTIVE POSITIVE (NONE DETECT); UR CANNABINOIDS QUAL NONE DETECTED (NONE DETECT); UR COCAINE QUAL NONE DETECTED (NONE DETECT); UR METHADONE QUAL NONE DETECTED (NONE DETECT); UR OPIATES QUAL PRESUMPTIVE POSITIVE (NONE DETECT); UR OXYCODONE QUAL NONE DETECTED (NONE DETECT); UR PCP QUAL NONE DETECTED (NONE DETECT)
--- NOTE | 2018-10-08 04:37 | Diag Imaging Result Doc PS360 ---
EXAM: ANKLE COMPLETE LEFT HISTORY: injury TECHNIQUE: Left ankle, three views COMPARISON: None. FINDINGS: There is oblique fracture through the distal fibula with dislocation and angulation of approximately 25 degrees. There is an additional fracture at ankle medial malleolus. The distal tibia is dislocated from the tightness. IMPRESSION: Fractures to the distal tibia and fibula with dislocation Electronically signed by Flaco Cabrera 10/08/2018 4:35 AM
--- NOTE | 2018-10-08 04:43 | Diag Imaging Result Doc PS360 ---
EXAM: LOWER LEG-RIGHT HISTORY: fall TECHNIQUE: Right tibia and fibula, five views COMPARISON: None. FINDINGS: Fracture with slight angulation to the proximal fibula. There is a transverse fracture to the mid tibia with at least 11 mm of displacement and 5 degrees of angulation. There are also fractures to the medial and lateral malleolus. IMPRESSION: Multiple fibula and tibia fractures. Electronically signed by Flaco Cabrera 10/08/2018 4:40 AM
--- NOTE | 2018-10-08 04:47 | Diag Imaging Result Doc PS360 ---
EXAM: LOWER LEG-RIGHT HISTORY: post reduction TECHNIQUE: Portable right tibia and fibula, four views COMPARISON: 30 minutes earlier FINDINGS: Slight compaction to the proximal fibula fracture. There continues to the lateral displacement to the mid tibial fracture of at least 15 mm. Good alignment to the medial and lateral malleolar fractures. Electronically signed by Flaco Cabrera 10/08/2018 4:45 AM
--- NOTE | 2018-10-08 04:51 | Diag Imaging Result Doc PS360 ---
EXAM: SHOULDER-LEFT HISTORY: fall TECHNIQUE: Shoulder three views including an axillary Y-view COMPARISON: None. FINDINGS: No fracture. No dislocation. No separation at the acromioclavicular joint. There is arthritis at the acromioclavicular joint. IMPRESSION: No acute bony injury. Electronically signed by Flaco Cabrera 10/08/2018 4:48 AM
--- NOTE | 2018-10-08 04:52 | Diag Imaging Result Doc PS360 ---
EXAM: ANKLE COMPLETE LEFT HISTORY: post reduction TECHNIQUE: Portable left ankle, three views COMPARISON: None. FINDINGS: Improved angulation to the distal fibular fracture. There is good alignment at the ankle to the medial and lateral malleolus. Soft tissue swelling is present. Electronically signed by Flaco Cabrera 10/08/2018 4:50 AM
--- NOTE | 2018-10-08 04:58 | Diag Imaging Result Doc PS360 ---
EXAM: ELBOW 2 VIEWS LEFT HISTORY: fall TECHNIQUE: Left elbow, two views COMPARISON: None. FINDINGS: Suboptimal imaging of the elbow. Unable to exclude a fracture. Follow-up series with a complete three views recommended. Electronically signed by Flaco Cabrera 10/08/2018 4:56 AM
[2018-10-08] MEDS ORDERED: DILAUDID IV ONE (05:39)
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
[2018-10-08 07:16] LABS: CK INDEX 1.6 (0.0-2.5); CK-MB 11.28 ng/mL (0.0-5.0)
--- NOTE | 2018-10-08 08:05 | Diag Imaging Result Doc PS360 ---
EXAM: CT HEAD/C-SPINE W/O CONTRAST INDICATION: fall TECHNIQUE: This exam was performed using automated exposure control, adjustment of mA or kV according to patient size, and/or use of iterative reconstruction technique. COMPARISON: Head CT dated 02/24/2014 FINDINGS: Head: There is no definite acute infarct given the limited sensitivity of CT versus MRI. There is no discrete intracranial mass, mass effect, or intracranial hemorrhage. The surrounding soft tissues are essentially unremarkable. The calvaria is intact. C-spine: There is multilevel degenerative disc disease that appears to be most significant at C3-4 and C4-5 where there is at least moderate right neuroforaminal stenosis and mild central canal narrowing. Otherwise, there is no discrete fracture, subluxation, or intrinsic osseous lesion. There is emphysema at both lung apices. Surrounding soft tissues are grossly unremarkable, otherwise. IMPRESSION: 1.No evidence of acute intracranial pathology. 2.Multilevel degenerative arthropathy but no evidence of fracture or other definite acute C-spine injury. Electronically signed by Axel Morris 10/08/2018 8:03 AM
--- NOTE | 2018-10-08 08:20 | Diag Imaging Result Doc PS360 ---
EXAM: CT THORAX/ABD/PELVIS W/CON INDICATION: fall TECHNIQUE: COMPARISON: CT chest dated 05/05/2018 FINDINGS: CHEST: There is moderate to advanced pulmonary emphysema. There is bilateral dependent atelectasis, more prominent at the bases and especially on the right. On the right, superimposed infiltrate cannot completely be excluded. Please correlate clinically. There is no pleural fluid collection or pneumothorax. There is no abnormal mediastinal fluid collection. The heart is mildly prominent. There is extensive coronary artery calcification and CABG changes. There is stable borderline aneurysmal dilation of the ascending aorta. There is no evidence of acute great vessel injury. The bony structures of the thorax are grossly intact. ABDOMEN/PELVIS: There are a few stable small cystic appearing foci associated with the liver. The liver is unremarkable, otherwise. The gallbladder, spleen, pancreas, adrenal glands, kidneys, and urinary bladder are essentially unremarkable. The GI tract is grossly unremarkable. No free abdominal gas or free fluid is appreciated. There is fairly extensive aortoiliac atherosclerotic calcification. There is degenerative disc disease at the lower lumbar levels. The bony structures of the abdomen and pelvis are grossly intact. IMPRESSION: 1.Bilateral atelectasis with a basilar predominance and worst on the right. Superimposed infiltrate on the right cannot completely be excluded. Please correlate clinically. 2.Moderate to advanced pulmonary emphysema. 3.Other incidental/nonacute findings detailed above. No evidence of acute traumatic pathology involving the chest, abdomen, or pelvis. Electronically signed by Axel Morris 10/08/2018 8:18 AM
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
[2018-10-08 09:42] LABS: ALB/GLOB RATIO 1.8; ALBUMIN 4.2 g/dL (3.5-5.0); CALCIUM 8.6 mg/dL (8.8-10.2); CREATININE 1.5 mg/dL (0.7-1.2); MAGNESIUM 1.8 mg/dL (1.5-2.7); PHOSPHORUS 6.9 mg/dL (2.7-4.5); POTASSIUM 4.7 mmol/L (3.5-5.1); TOTAL BILIRUBIN 0.5 mg/dL (0.20-1.00); TOTAL PROTEIN 6.5 g/dL (6.3-8.3)
[2018-10-08] MEDS: HUMALOG SUBQ SCH ×5 (11:00→20:30)
[2018-10-08] MEDS: NS 1,000 ML IV SCH ×2 (11:09→18:21)
[2018-10-08] MEDS: LEVAQUIN 750 MG/D5W 750 MG/150 ML IVPB IV SCH (11:09)
[2018-10-08] MEDS: SODIUM CHLORIDE 0.9% INJ SCH (11:13)
[2018-10-08] MEDS: NEXIUM IV SCH (11:13)
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
--- NOTE | 2018-10-08 12:50 | Diag Imaging Result Doc PS360 ---
EXAM: ELBOW COMPLETE LEFT HISTORY: left elbow rule out fracture TECHNIQUE: Left elbow, three views COMPARISON: 2:21 AM FINDINGS: The lateral view is not taken at 90 degrees. No fracture. No dislocation. There is arthritic bone spurring to the olecranon. IMPRESSION: No acute bony injury identified. Electronically signed by Flaco Cabrera 10/08/2018 12:47 PM
[2018-10-08 12:59] LABS: ALLEN TEST YES; BE -2.6 mmoll (-3.0-3.0); BLOOD TYPE ARTERIAL; HCO3-(ACT) 22.8 mmoll (20.0-26.0); METHB 1.3 % (0.0-1.5); O2(CT) 17.3 mL/dL (15.0-23.0); O2HB 93.8 % (95.0-99.0); PO2(98.6) 80 mmHg (60-100); SAMPLE BLOOD; SAO2 96.5 % (95.0-100.0); THB 13.1 g/dL (11.5-17.4); pH(98.6) 7.29 (7.35-7.45)
[2018-10-08 13:00] LABS: MODALITY NRB; PCO2(98.6) 51 mmHg (35-45)
[2018-10-08] MEDS: CLINDAMYCIN 600 MG/D5W 600 MG/50 ML IVPB IV SCH ×2 (13:54→20:30)
--- NOTE | 2018-10-08 14:36 | Diag Imaging Result Doc PS360 ---
EXAM: CT HEAD W/O CONTRAST HISTORY: AMS TECHNIQUE: CT head without contrast COMPARISON: 2:46 AM FINDINGS: No parenchymal hemorrhage. No epidural or subdural hematoma. No subarachnoid hemorrhage. No mass identified on this noncontrasted exam. No hydrocephalus. No sinus opacification. IMPRESSION: No hemorrhage. No change. This exam was performed using automated exposure control, adjustment of mA or kV according to patient size, and/or use of iterative reconstruction technique. Electronically signed by Flaco Cabrera 10/08/2018 2:34 PM
[2018-10-08] MEDS ORDERED: XANAX PO PRN (15:22)
[2018-10-08] MEDS: DUONEB (A & A) INH PRN ×3 (16:16→22:53)
[2018-10-08] MEDS: MORPHINE IV PRN ×2 (17:00→21:38)
[2018-10-08] MEDS ORDERED: ATIVAN IV ONE (17:51)
[2018-10-08] MEDS ORDERED: STERILE WATER INJ. INJ ONE (20:49)
[2018-10-08] MEDS ORDERED: GEODON IM ONE (20:49)
[2018-10-09] MEDS: MORPHINE IV PRN ×7 (01:00→23:42)
[2018-10-09] MEDS: DUONEB (A & A) INH PRN ×4 (03:35→15:55)
[2018-10-09 04:29] LABS: ALLEN TEST YES; BE -2.2 mmoll (-3.0-3.0); BLOOD TYPE ARTERIAL; HCO3-(ACT) 23.1 mmoll (20.0-26.0); METHB 0.9 % (0.0-1.5); O2(CT) 21.8 mL/dL (15.0-23.0); O2HB 93.9 % (95.0-99.0); PCO2(98.6) 49 mmHg (35-45); PO2(98.6) 77 mmHg (60-100); SAMPLE BLOOD; THB 16.5 g/dL (11.5-17.4); pH(98.6) 7.31 (7.35-7.45)
[2018-10-09 04:30] LABS: MODALITY BI PAP
[2018-10-09] MEDS: CLINDAMYCIN 600 MG/D5W 600 MG/50 ML IVPB IV SCH ×3 (05:28→20:27)
[2018-10-09] MEDS: HUMALOG SUBQ SCH ×5 (06:31→23:46)
[2018-10-09] MEDS: NS 1,000 ML IV SCH (07:57)
[2018-10-09] MEDS: LEVAQUIN 750 MG/D5W 750 MG/150 ML IVPB IV SCH (07:59)
[2018-10-09] MEDS: NEXIUM IV SCH (08:00)
[2018-10-09] MEDS: SODIUM CHLORIDE 0.9% INJ SCH (08:00)
[2018-10-09] MEDS ORDERED: XANAX PO PRN (08:15)
[2018-10-09 08:56] LABS: HEMATOCRIT 37.7 % (42.0-52.0); HEMOGLOBIN 11.7 g/dL (14.0-18.0); LYMPH% 14.7 % (20.5-51.1); MCH 28.8 PG (27-31); MCV 92.9 FL (81-99); MONO% 16.7 % (1.7-9.3); MPV 12.3 FL (7.4-10.4); NEUT% 68.4 % (42.2-75.2); PLT 160 X1000 (130-400); RBC 4.06 XMIL (4.7-6.1); RDW 15.8 % (11.5-14.5); WBC 10.96 X1000 (4.8-10.8)
[2018-10-09 08:57] LABS: BASO# 0.01 X1000 (0.0-0.2); BASO% 0.1 % (0.0-0.8); EOS# 0.01 X1000 (0.0-0.7); EOS% 0.1 % (0.0-10.0); LYMPH# 1.61 X1000 (1.2-3.4); MONO# 1.83 X1000 (0.11-0.59)
[2018-10-09 09:13] LABS: AGAP 16; ALB/GLOB RATIO 1.1; ALBUMIN 3.2 g/dL (3.5-5.0); ALKALINE PHOSPHATASE 55 U/L (32-122); BUN 16 mg/dL (8-22); CALCIUM 8.8 mg/dL (8.8-10.2); CHLORIDE 106 mmol/L (98-107); COSMO 292; CREATININE 0.9 mg/dL (0.7-1.2); ESTIMATED GFR > 60; GLUCOSE 133 mg/dL (70-104); GOT 36 U/L (10-34); GPT 14 U/L (10-44); MAGNESIUM 1.6 mg/dL (1.5-2.7); SODIUM 145 mmol/L (136-145); TCO2 23 mmol/L (25-35); TOTAL BILIRUBIN 0.69 mg/dL (0.20-1.00); TOTAL PROTEIN 6.1 g/dL (6.3-8.3)
--- NOTE | 2018-10-09 09:17 | ORTHOPAEDICS PROGRESS NOTE ---
DATE: 10/09/2018 SUBJECTIVE: Cosmo Nichols is a white male, 58 years old, who has bilateral ankle fractures and a right midshaft tibia fracture. He is in the ICU for confusion, tachycardia, low oxygen saturation. He is currently on BiPAP and is not able to answer coherently questions. OBJECTIVE: He is as stated above. His toes have brisk cap refill. He appears to have grossly intact sensation. His calves appear soft without sign of DVT. His splints are intact. ASSESSMENT: Stable bilateral ankles and legs. PLAN: Will plan on surgery when he is cleared medically. cc: Miguel Tinoco MD
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
[2018-10-09] MEDS: ATIVAN IV PRN (11:36)
--- NOTE | 2018-10-09 11:59 | Diag Imaging Result Doc PS360 ---
EXAM: CHEST-PORTABLE 10/09/2018 HISTORY: abnormal exam TECHNIQUE: AP portable upright at 1141 COMMENT: There is less optimal inspiration than on 05/04/2018. There is atelectasis or pneumonia in the right lower lobe which was also apparently present previously. IMPRESSION: Persistent atelectasis versus pneumonia right lower lobe. Electronically signed by Gonzalez Gonzales 10/09/2018 11:57 AM
[2018-10-09] MEDS ORDERED: LOPRESSOR IV SCH (13:15)
[2018-10-09] MEDS ORDERED: HALDOL IV ONE (15:22)
[2018-10-09] MEDS: DUONEB (A & A) INH SCH ×2 (19:07→23:07)
[2018-10-09] MEDS: LOPRESSOR 10 MG in NS 50 ML IV SCH ×2 (20:28→23:36)
[2018-10-09] MEDS: D5 1/2 NS 1,000 ML IV SCH (20:28)
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
[2018-10-10] MEDS: TYLENOL PR PRN (00:22)
[2018-10-10] MEDS: DUONEB (A & A) INH SCH ×6 (03:32→23:44)
[2018-10-10] MEDS: HUMALOG SUBQ SCH ×5 (03:51→19:37)
[2018-10-10] MEDS: LOPRESSOR 10 MG in NS 50 ML IV SCH ×5 (03:59→20:45)
[2018-10-10 04:29] LABS: BASO# 0.01 X1000 (0.0-0.2); BASO% 0.1 % (0.0-0.8); EOS# 0.03 X1000 (0.0-0.7); EOS% 0.3 % (0.0-10.0); HEMATOCRIT 34.2 % (42.0-52.0); HEMOGLOBIN 10.6 g/dL (14.0-18.0); IMM GRAN# 0.03 X1000 (0.0-0.04); IMM GRAN% 0.3 % (0.0-0.5); LYMPH% 15.1 % (20.5-51.1); MCH 28.9 PG (27-31); MCV 93.2 FL (81-99); MONO# 1.61 X1000 (0.11-0.59); MONO% 14.3 % (1.7-9.3); MPV 12.1 FL (7.4-10.4); NEUT# 7.89 X1000 (1.4-6.5); NEUT% 69.9 % (42.2-75.2); PLT 133 X1000 (130-400); RBC 3.67 XMIL (4.7-6.1); RDW 15.5 % (11.5-14.5); WBC 11.27 X1000 (4.8-10.8)
[2018-10-10 04:53] LABS: ALLEN TEST YES; BE 4.1 mmoll (-3.0-3.0); BLOOD TYPE ARTERIAL; HCO3-(ACT) 28.1 mmoll (20.0-26.0); METHB 0.9 % (0.0-1.5); O2(CT) 16.4 mL/dL (15.0-23.0); PCO2(98.6) 45 mmHg (35-45); PO2(98.6) 121 mmHg (60-100); SAMPLE BLOOD; SAO2 98.9 % (95.0-100.0); THB 11.9 g/dL (11.5-17.4); pH(98.6) 7.42 (7.35-7.45)
[2018-10-10 04:54] LABS: MODALITY BI PAP
[2018-10-10] MEDS: CLINDAMYCIN 600 MG/D5W 600 MG/50 ML IVPB IV SCH ×3 (04:56→20:45)
[2018-10-10 05:03] LABS: MAGNESIUM 1.7 mg/dL (1.5-2.7); PHOSPHORUS 1.9 mg/dL (2.7-4.5)
[2018-10-10 05:21] LABS: AGAP 12; ALB/GLOB RATIO 0.9; ALBUMIN 2.7 g/dL (3.5-5.0); ALKALINE PHOSPHATASE 46 U/L (32-122); BUN 14 mg/dL (8-22); CALCIUM 8.5 mg/dL (8.8-10.2); CHLORIDE 102 mmol/L (98-107); COSMO 280; CREATININE 0.8 mg/dL (0.7-1.2); ESTIMATED GFR > 60; GLUCOSE 132 mg/dL (70-104); GOT 32 U/L (10-34); POTASSIUM 3.7 mmol/L (3.5-5.1); SODIUM 139 mmol/L (136-145); TCO2 25 mmol/L (25-35); TOTAL BILIRUBIN 0.63 mg/dL (0.20-1.00); TOTAL PROTEIN 5.7 g/dL (6.3-8.3)
[2018-10-10 05:32] LABS: GPT 13 U/L (10-44)
[2018-10-10] MEDS: MORPHINE IV PRN ×5 (06:23→22:09)
[2018-10-10] MEDS: ATIVAN IV PRN ×3 (06:23→19:45)
--- NOTE | 2018-10-10 07:24 | Diag Imaging Result Doc PS360 ---
EXAM: CHEST-PORTABLE HISTORY: abnormal exam TECHNIQUE: Portable chest single view COMPARISON: 10/09/2018 FINDINGS: The lungs are well expanded. Decreased edema. Mildly prominent heart with sternal wires. Right hemidiaphragm is elevated. No consolidation. Partial clearing in the right base. IMPRESSION: Interval improvement. Electronically signed by Flaco Cabrera 10/10/2018 7:22 AM
[2018-10-10] MEDS: NEXIUM IV SCH (08:13)
[2018-10-10] MEDS: SODIUM CHLORIDE 0.9% INJ SCH (08:13)
[2018-10-10] MEDS: D5 1/2 NS 1,000 ML IV SCH ×2 (08:14→19:10)
[2018-10-10] MEDS: LEVAQUIN 750 MG/D5W 750 MG/150 ML IVPB IV SCH (08:14)
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
--- NOTE | 2018-10-10 18:12 | PULMONOLOGY PROGRESS NOTE ---
DATE: 10/10/2018 SUBJECTIVE: The patient is lying diagonally in the bed with his feet hanging off the side. He is arousable. He says he is "doing okay." He does not appear to be oriented. OBJECTIVE: Maximum temperature in the last 24 hours 101.1 degrees. Current temperature 98.7 degrees. Blood pressure 138/73, heart rate 117, respiratory rate 16, oxygen saturation 93% on face mask. HEENT: Pupils are equal and reactive. Oropharynx appears dry, but clear. Neck: Supple. Chest: Occasional rhonchi bilaterally. Cardiac exam: Increased rate, regular rhythm. Abdomen: Soft. Extremities: Soft cast on both lower extremities. LABORATORY AND DIAGNOSTIC DATA: White blood count 11.27, hemoglobin 10.6, platelet count 133,000. Arterial blood gas, pH 7.42, pCO2 of 45, PO2 of 121. Sodium 139, potassium 3.7, chloride 102, bicarbonate 25, BUN 14, creatinine 0.8, glucose 132. Chest x-ray reveals decreased infiltrates with partial clearing of the right base. IMPRESSION: A 58-year-old with: 1. Chronic obstructive pulmonary disease. 2. Bilateral pneumonia. 3. Acute hypoxemic respiratory failure. 4. Delirium. 5. Bilateral fractures of both lower extremities. DISCUSSION: This is a 58-year-old with problems outlined above. Clinically, he is marginally improved. His work of breathing has diminished. His arterial blood gas has marginally improved. His tachycardia is improved with sedatives and beta-blockers. RECOMMENDATIONS: 1. Continue current fluids. 2. Continue current antibiotic regimen for pneumonia. 3. Continue beta-blockers for tachycardia. 4. Recommend initiating DVT prophylaxis if he is not going to the operating room today. cc: Tristan Watermna MD
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
[2018-10-10] MEDS: HEPARIN SUBQ SCH (20:45)
[2018-10-11] MEDS: HUMALOG SUBQ SCH ×6 (00:21→21:03)
[2018-10-11] MEDS: LOPRESSOR 10 MG in NS 50 ML IV SCH ×6 (00:23→21:58)
[2018-10-11] MEDS: DUONEB (A & A) INH SCH ×6 (03:30→23:16)
[2018-10-11] MEDS: HEPARIN SUBQ SCH ×3 (04:04→21:07)
[2018-10-11] MEDS: CLINDAMYCIN 600 MG/D5W 600 MG/50 ML IVPB IV SCH ×3 (04:04→21:07)
[2018-10-11 04:41] LABS: ALLEN TEST YES; BE 6.2 mmoll (-3.0-3.0); BLOOD TYPE ARTERIAL; HCO3-(ACT) 29.8 mmoll (20.0-26.0); O2(CT) 15.5 mL/dL (15.0-23.0); O2HB 97.6 % (95.0-99.0); PO2(98.6) 95 mmHg (60-100); SAMPLE BLOOD; SAO2 100.7 % (95.0-100.0); THB 11.2 g/dL (11.5-17.4)
[2018-10-11 04:42] LABS: MODALITY BI PAP; PCO2(98.6) 52 mmHg (35-45)
[2018-10-11 05:16] LABS: AGAP 8; ALB/GLOB RATIO 0.9; ALBUMIN 2.9 g/dL (3.5-5.0); ALKALINE PHOSPHATASE 44 U/L (32-122); BUN 12 mg/dL (8-22); CALCIUM 8.7 mg/dL (8.8-10.2); CHLORIDE 102 mmol/L (98-107); COSMO 280; CREATININE 0.7 mg/dL (0.7-1.2); ESTIMATED GFR > 60; GLUCOSE 154 mg/dL (70-104); GOT 27 U/L (10-34); GPT 13 U/L (10-44); POTASSIUM 3.7 mmol/L (3.5-5.1); SODIUM 139 mmol/L (136-145); TCO2 29 mmol/L (25-35); TOTAL BILIRUBIN 0.65 mg/dL (0.20-1.00)
[2018-10-11] MEDS: D5 1/2 NS 1,000 ML IV SCH ×2 (06:51→16:56)
[2018-10-11] MEDS: LEVAQUIN 750 MG/D5W 750 MG/150 ML IVPB IV SCH (09:18)
[2018-10-11] MEDS: NEXIUM IV SCH (09:18)
[2018-10-11] MEDS: SODIUM CHLORIDE 0.9% INJ SCH (09:19)
--- NOTE | 2018-10-11 09:48 | Diag Imaging Result Doc PS360 ---
EXAM: ANKLE COMPLETE RIGHT HISTORY: fx TECHNIQUE: Right ankle three views COMPARISON: 10/08/2018 FINDINGS: There is a transverse fracture through the lateral malleolus with slight displacement. There is an oblique fracture through the medial malleolus with minimal displacement. There is also a transverse fracture with mild displacement through the midshaft of the tibia. IMPRESSION: Improved alignment to the tibial fracture Electronically signed by Flaco Cabrera 10/11/2018 9:45 AM
[2018-10-11] MEDS: MORPHINE IV PRN ×3 (12:26→22:34)
[2018-10-11] MEDS ORDERED: LASIX IV ONE (14:09)
--- NOTE | 2018-10-11 14:32 | Diag Imaging Result Doc PS360 ---
EXAM: CHEST-PORTABLE 10/11/2018 HISTORY: resp. Failure TECHNIQUE: AP portable at 1416 COMMENT: There is platelike atelectasis in the lingula which was not previously present on 10/10/2018. There is also some platelike opacity over the right base. Compared to 10/10/2018 the atelectatic changes are worse in the inspiration is less optimal. IMPRESSION: Subsegmental atelectasis. Electronically signed by Gonzalez Gonzales 10/11/2018 2:29 PM
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
--- NOTE | 2018-10-11 22:21 | PULMONOLOGY PROGRESS NOTE ---
DATE: 10/11/2018 INTERIM HISTORY: The patient was placed on BiPAP yesterday for oxygen desaturation. He appears comfortable on this device. He will respond to the practitioner. OBJECTIVE: Vital Signs: Maximum temperature in the last 24 hours is 100.2 degrees, heart rate 113, blood pressure 117/76. Oxygen saturation 96%. HEENT: Pupils are equal and reactive. Oropharynx appears dry. Neck: Is supple. Chest: Reveals rhonchi bilaterally. Cardiac exam: S1, S2. Abdomen: Is soft. Lower extremities: Evaluation is limited with soft cast in place. LABORATORIES: Chest x-ray reveals bibasilar atelectasis. Chemistry: Sodium 139, potassium 3.7, chloride 102, bicarbonate 29, BUN 12, creatinine 0.7. IMPRESSION: 58-year-old with 1. Bilateral pneumonia, aspiration pneumonia. 2. Chronic obstructive pulmonary disease. 3. Acute hypoxemic respiratory failure. 4. Delirium. 5. Bilateral lower extremity fractures. PLAN: 1. Attempt to balance intake and output. 2. Continue antibiotics for pneumonia. 3. Continue beta-blockade for tachycardia. 4. Continue deep vein thrombosis prophylaxis pending trip to the operating room. 5. Encourage alcohol cessation. cc: Tristan Waterman MD
[2018-10-11] MEDS: ATIVAN IV PRN (22:34)
[2018-10-12] MEDS: LOPRESSOR 10 MG in NS 50 ML IV SCH ×6 (00:09→20:23)
[2018-10-12] MEDS: HUMALOG SUBQ SCH ×6 (00:11→20:13)
[2018-10-12] MEDS: MORPHINE IV PRN (00:46)
[2018-10-12] MEDS: ATIVAN IV PRN ×2 (03:11→08:51)
[2018-10-12] MEDS: DUONEB (A & A) INH SCH ×6 (03:43→23:18)
[2018-10-12] MEDS: HEPARIN SUBQ SCH ×3 (04:28→20:13)
[2018-10-12] MEDS: D5 1/2 NS 1,000 ML IV SCH ×3 (04:28→21:54)
[2018-10-12 04:44] LABS: ALLEN TEST YES; BE 11.6 mmoll (-3.0-3.0); BLOOD TYPE ARTERIAL; METHB 0.9 % (0.0-1.5); O2(CT) 13.9 mL/dL (15.0-23.0); O2HB 96.6 % (95.0-99.0); PO2(98.6) 94 mmHg (60-100); SAMPLE BLOOD; SAO2 99.1 % (95.0-100.0); THB 10.1 g/dL (11.5-17.4); pH(98.6) 7.44 (7.35-7.45)
[2018-10-12 04:45] LABS: MODALITY BI PAP; PCO2(98.6) 55 mmHg (35-45)
[2018-10-12 05:57] LABS: BASO% 0.2 % (0.0-0.8); EOS% 4.5 % (0.0-10.0); HEMATOCRIT 31.3 % (42.0-52.0); HEMOGLOBIN 9.9 g/dL (14.0-18.0); IMM GRAN% 0.2 % (0.0-0.5); LYMPH% 16.6 % (20.5-51.1); MCH 28.9 PG (27-31); MCHC 31.6 g/dL (33-37); MCV 91.3 FL (81-99); MONO% 15.8 % (1.7-9.3); MPV 13.3 FL (7.4-10.4); NEUT# 6.29 X1000 (1.4-6.5); NEUT% 62.7 % (42.2-75.2); PLT 145 X1000 (130-400); RBC 3.43 XMIL (4.7-6.1); RDW 14.6 % (11.5-14.5); WBC 10.02 X1000 (4.8-10.8)
[2018-10-12 05:58] LABS: BASO# 0.02 X1000 (0.0-0.2); EOS# 0.45 X1000 (0.0-0.7); IMM GRAN# 0.02 X1000 (0.0-0.04); LYMPH# 1.66 X1000 (1.2-3.4); MONO# 1.58 X1000 (0.11-0.59)
[2018-10-12] MEDS: CLINDAMYCIN 600 MG/D5W 600 MG/50 ML IVPB IV SCH ×3 (06:14→20:13)
[2018-10-12 06:44] LABS: AGAP 15; ALB/GLOB RATIO 0.8; ALBUMIN 2.8 g/dL (3.5-5.0); ALKALINE PHOSPHATASE 47 U/L (32-122); BUN 15 mg/dL (8-22); CALCIUM 8.5 mg/dL (8.8-10.2); CHLORIDE 95 mmol/L (98-107); COSMO 278; CREATININE 0.8 mg/dL (0.7-1.2); ESTIMATED GFR > 60; GLUCOSE 132 mg/dL (70-104); GOT 26 U/L (10-34); GPT 14 U/L (10-44); POTASSIUM 3.3 mmol/L (3.5-5.1); SODIUM 138 mmol/L (136-145); TCO2 28 mmol/L (25-35); TOTAL BILIRUBIN 0.79 mg/dL (0.20-1.00); TOTAL PROTEIN 6.2 g/dL (6.3-8.3)
--- NOTE | 2018-10-12 07:00 | Diag Imaging Result Doc PS360 ---
EXAM: CHEST-PORTABLE 10/12/2018 HISTORY: abnormal exam TECHNIQUE: AP portable at 0514 COMMENT: There is improved platelike atelectasis in the lingula compared to 10/11/2018. There continues to be atelectasis over the right hemidiaphragm. IMPRESSION: Improved atelectasis. Electronically signed by Gonzalez Gonzales 10/12/2018 6:57 AM
[2018-10-12] MEDS: NEXIUM IV SCH (08:34)
[2018-10-12] MEDS: POTASSIUM CHLORIDE 20 MEQ/SWI 20 MEQ/100 ML IVPB IV SCH ×2 (08:34→10:52)
[2018-10-12] MEDS: LEVAQUIN 750 MG/D5W 750 MG/150 ML IVPB IV SCH (08:34)
[2018-10-12] MEDS ORDERED: DIPRIVAN 1% ONE (11:43)
[2018-10-12] MEDS ORDERED: FENTANYL ONE (11:47)
[2018-10-12] MEDS ORDERED: VERSED ONE ×3 (12:19→17:13)
[2018-10-12] MEDS ORDERED: KEFZOL 2 GM/D5W 2 GM/50 ML IVPB ONE (13:17)
[2018-10-12] MEDS ORDERED: ZEMURON ONE (13:31)
[2018-10-12] MEDS ORDERED: XYLOCAINE-MPF 2% ONE (13:31)
[2018-10-12] MEDS ORDERED: ZOFRAN ONE (16:29)
[2018-10-12] MEDS ORDERED: SODIUM CHLORIDE 0.9% 10 ML ONE (16:32)
[2018-10-12] MEDS ORDERED: NORCURON ONE (16:32)
--- NOTE | 2018-10-12 17:07 | ORTHOPAEDICS PROGRESS NOTE ---
DATE: 10/12/2018 SUBJECTIVE DATA: Mr. Nichols is sitting in bed. He is a little more alert this morning. He is following commands. OBJECTIVE DATA: Right lower extremity exam: His splints were replaced yesterday. They are clean, dry, and intact. He has good capillary refill to the toes. He is able to move the toes. Left lower extremity exam, they changed the splint yesterday as well is clean, dry, and intact. He is able to move the toes and has good capillary refill. ASSESSMENT: Bilateral bimalleolar ankle fractures and a right tibia fracture. PLAN: I will confer today with Dr. Obrien, but the plan is to proceed with ORIF of both bimalleolar ankles to do an intramedullary nail in the right tibia. We are planning to do this today. Overall Mr. Nichols looks better clinically and all of his vital signs are stable today. He is still on the BiPAP and his CO2 this morning was 55. I will make sure we have medical clearance, but again the plan will be to do him today. Dictated by SARAH Hill for Jose Francisco Mccain MD cc: SARAH Hill MD
[2018-10-12 18:30] LABS: BLOOD TYPE ARTERIAL; SAMPLE BLOOD
[2018-10-12 18:31] LABS: ALLEN TEST YES; BE 6.4 mmoll (-3.0-3.0); HCO3-(ACT) 29.9 mmoll (20.0-26.0); O2(CT) 12.5 mL/dL (15.0-23.0); O2HB 94.7 % (95.0-99.0); PO2(98.6) 81 mmHg (60-100); SAO2 97.2 % (95.0-100.0); SRATE 15 BPM; THB 9.3 g/dL (11.5-17.4); TVOL 650 mL
[2018-10-12 18:32] LABS: PCO2(98.6) 52 mmHg (35-45)
[2018-10-12 18:33] LABS: MODALITY VENTILATOR
[2018-10-12] MEDS: DIPRIVAN 1% 1,000 MG/100 ML BOTTLE IV SCH (18:47)
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
[2018-10-12] MEDS ORDERED: LASIX IV ONE (23:00)
[2018-10-13] MEDS: LOPRESSOR 10 MG in NS 50 ML IV SCH ×6 (00:06→20:30)
[2018-10-13] MEDS: HUMALOG SUBQ SCH ×6 (00:07→21:36)
[2018-10-13] MEDS: MORPHINE IV PRN ×2 (02:49→17:51)
[2018-10-13] MEDS: DUONEB (A & A) INH SCH ×6 (03:31→23:19)
[2018-10-13] MEDS ORDERED: OFIRMEV 1000 MG/ISOTONIC SOLN 1,000 MG/100 ML BOTTLE IV ONE (03:44)
[2018-10-13] MEDS: CLINDAMYCIN 600 MG/D5W 600 MG/50 ML IVPB IV SCH ×2 (04:15→12:01)
[2018-10-13] MEDS: HEPARIN SUBQ SCH ×3 (04:15→21:34)
[2018-10-13 04:40] LABS: ALLEN TEST YES; BE 10.6 mmoll (-3.0-3.0); BLOOD TYPE ARTERIAL; HCO3-(ACT) 33.2 mmoll (20.0-26.0); METHB 0.8 % (0.0-1.5); O2(CT) 13.3 mL/dL (15.0-23.0); O2HB 95.7 % (95.0-99.0); PCO2(98.6) 41 mmHg (35-45); PO2(98.6) 79 mmHg (60-100); SAMPLE BLOOD; SAO2 99.5 % (95.0-100.0); SRATE 15 BPM; THB 9.8 g/dL (11.5-17.4); TVOL 650 mL; pH(98.6) 7.53 (7.35-7.45)
[2018-10-13 04:42] LABS: MODALITY VENTILATOR
[2018-10-13 06:21] LABS: BASO# 0.01 X1000 (0.0-0.2); BASO% 0.1 % (0.0-0.8); EOS# 0.03 X1000 (0.0-0.7); EOS% 0.3 % (0.0-10.0); HEMATOCRIT 30.5 % (42.0-52.0); HEMOGLOBIN 9.7 g/dL (14.0-18.0); IMM GRAN# 0.04 X1000 (0.0-0.04); IMM GRAN% 0.4 % (0.0-0.5); LYMPH# 0.92 X1000 (1.2-3.4); LYMPH% 9.1 % (20.5-51.1); MCH 28.8 PG (27-31); MCHC 31.8 g/dL (33-37); MCV 90.5 FL (81-99); MONO# 1.46 X1000 (0.11-0.59); MONO% 14.4 % (1.7-9.3); MPV 13.7 FL (7.4-10.4); NEUT# 7.69 X1000 (1.4-6.5); NEUT% 75.7 % (42.2-75.2); PLT 158 X1000 (130-400); RBC 3.37 XMIL (4.7-6.1); RDW 14.9 % (11.5-14.5); WBC 10.15 X1000 (4.8-10.8)
[2018-10-13] MEDS: DIPRIVAN 1% 1,000 MG/100 ML BOTTLE IV SCH ×3 (06:33→18:00)
[2018-10-13 06:37] LABS: MAGNESIUM 1.5 mg/dL (1.5-2.7); PHOSPHORUS 1.4 mg/dL (2.7-4.5)
[2018-10-13 06:39] LABS: SODIUM 136 mmol/L (136-145)
[2018-10-13 06:40] LABS: AGAP 11; ALB/GLOB RATIO 0.7; ALBUMIN 2.6 g/dL (3.5-5.0); ALKALINE PHOSPHATASE 52 U/L (32-122); BUN 17 mg/dL (8-22); CALCIUM 8.3 mg/dL (8.8-10.2); CHLORIDE 94 mmol/L (98-107); COSMO 277; CREATININE 0.9 mg/dL (0.7-1.2); ESTIMATED GFR > 60; GLUCOSE 162 mg/dL (70-104); GOT 26 U/L (10-34); GPT 12 U/L (10-44); POTASSIUM 3.5 mmol/L (3.5-5.1); TCO2 31 mmol/L (25-35); TOTAL BILIRUBIN 0.82 mg/dL (0.20-1.00); TOTAL PROTEIN 6.2 g/dL (6.3-8.3)
--- NOTE | 2018-10-13 07:48 | Diag Imaging Result Doc PS360 ---
EXAM: CHEST-1 VIEW INDICATION: intubated TECHNIQUE: 2 views COMPARISON: 10/12/2018 FINDINGS: There is a newly placed ET tube. The tip projects over the trachea and above the norma at about the T4-5 level. There is slightly increased opacity over the right lung base as compared to the previous study suggesting slight worsening of atelectasis and/or infiltrate. The lingular platelike atelectasis has resolved. No other new consolidations are identified. Cardiac silhouette is stable. IMPRESSION: Interval placement of ET tube as described and slight increased opacity at the right lung base. Electronically signed by Axel Morris 10/13/2018 7:45 AM
[2018-10-13] MEDS: D5 1/2 NS 1,000 ML IV SCH ×2 (08:13→09:31)
[2018-10-13] MEDS: NEXIUM IV SCH (09:49)
[2018-10-13] MEDS: LEVAQUIN 750 MG/D5W 750 MG/150 ML IVPB IV SCH (09:49)
--- NOTE | 2018-10-13 10:33 | OPERATIVE NOTE ---
PROCEDURE DATE: 10/12/2018 PREOPERATIVE DIAGNOSIS: 1. Right midshaft tibia fracture. 2. Right bimalleolar ankle fracture. 3. Right syndesmosis disruption. 4. Left tibial pilon fracture with distal fibula fracture. 5. Left syndesmosis disruption. 6. Left anterior talofibular ligament and calcaneofibular ligament tear. POSTOPERATIVE DIAGNOSES: 1. Right midshaft tibia fracture. 2. Right bimalleolar ankle fracture. 3. Right syndesmosis disruption. 4. Left tibial pilon fracture with distal fibula fracture. 5. Left syndesmosis disruption. 6. Left anterior talofibular ligament and calcaneofibular ligament tear. 7. left talar osteochondral lesion. PROCEDURES: 1. Right intramedullary nailing tibia. 2. Right open reduction and internal fixation bimalleolar ankle fracture. 3. Right open reduction internal fixation syndesmosis. 4. Left open reduction internal fixation tibial pilon fracture and distal fibular fracture. 5. Left open reduction internal fixation syndesmosis. 6. Left Brostrom lateral ligament repair. 7. Left ankle arthrotomy with ankle debridement of talar osteochondral lesion. SURGEON: Dr. Jose Francisco Mccain. INDEPENDENT TRADER: SARAH Hill, who was integral to the whole case. She helped things move along very well. She helped increase our OR efficiency greatly, and she helped with all aspects of the case. ANESTHESIA: General with endotracheal intubation. TOURNIQUET TIME: On the right side was almost 2 hours; on the left side was almost 2 hours. IMPLANTS: 1. Synthes 10 x 405 tibial nail, right. 2. Synthes 1/3 tubular plate and screws, right. 3. Synthes 4-0 cancellous screws, right. 4. [employer] ZipTight, right side. 5. Left Synthes distal fibular locking plate and screws. 6. Left Synthes 4-0 cancellous screws. 7. Left Synthes 2-0 cancellous screws. 8. [employer] ZipTight, left 9. [employer] Juggernaut suture anchors x2, left. DISPOSITION: ICU in stable condition. INDICATION FOR PROCEDURE: Mr. Nichols, a 58-year-old male, was found down. He was initially seen by my partner, Dr. Tinoco. Unfortunately, his medical stability was not great. He has been in ICU since he came in. He was passed off to me for surgery for today. I discussed with his family member about operative intervention. She expressed her understanding and wished to proceed. DESCRIPTION OF PROCEDURE: Mr. Nichols was identified in the ICU. Bilateral lower extremity was marked as correct surgical site. He was then wheeled to the operating room and induced under general anesthesia. Endotracheal tube was placed. They had to suction out a pretty good bit because he had a lot of mucus down around his tube and in his trachea, but they were able to get the tube down and ventilate him well throughout the entire case. He was then moved over to the OR bed. All bony prominences were well padded. We took both splints off. He had fracture blisters on both sides, and he still had dirt from when they found him down. We cleaned both sides off with chlorhexidine gluconate scrub. We used a lot of scrub brushes so that we could get all the dirt and grime off. We popped all the fracture blisters as well. I then scrubbed the skin really well all the way up to the thigh, and then bilateral lower extremities were prepped with ChloraPrep and draped in normal sterile fashion. Surgical pause was performed. We identified the correct patient, correct side, and the correct procedure. He was already getting IV antibiotics, and he got Ancef as well. We started with the right side. Esmarch was used to exsanguinate the right lower extremity and tourniquet was placed on the thigh. It was then inflated at 300 mmHg. I started at the knee. I made a midline incision over the patellar tendon. Dissection was carried down. I got my position with my guidewire, advanced it in. I used my opening reamer to open up the proximal tibia. I then passed a ball-tip guidewire down. With the assistance of the nurse practitioner, I was able to reduce the fracture and she guided the guidewire down and center into the tibial plafond. I then sequentially reamed, starting with a 5 opening reamer up to a size 12. We placed an 11 x 405 nail down. I secured it proximally with 2 screws, 1 dynamic and 1 locking. I then took the outrigger guide off. I then pounded in the heel so we get some good compression at the tibial fracture site. I was able to get some good cortical compression, especially on the lateral aspect, and then placed the interlocking screw distally above his bimalleolar fracture. We put the tourniquet down during the reaming process, and kept it down until we started the open reduction of the ankle. We put it back up then. When that completed our tibial nail part, I then made an incision over the distal fibula. Dissection was carried down. There was a fracture distal. I was able to get it anatomically reduced. I had to make a hook plate out of a 1/3 tubular plate. I had to grab that distal piece, and then used the screws to hold it to the fibula proximally. I then came over to the medial aspect and made incision over the medial malleolus. Dissection was carried down, anatomically reduced the medial malleolus. I placed one screw from the tip of the medial malleolus up and then one more horizontal right above the joint line. Then I used a 1/3 tubular plate. I was able to use it as an antiglide plate right above the fracture. One of the screws I was able to get to go through the tibial nail, and then performed open reduction and internal fixation of our bimalleolar ankle fracture. He still has a little bit wide syndesmosis and was unstable anterior posterior as well. So, I was able to get him reduced and then passed a ZipTight suture button across. I was able to tension it down and that actually held things together very well. He seemed no longer unstable at that point. Final x-rays showed that we had good position overall. All the fractures were well reduced and all the hardware looked to be in good position. We then closed everything in layered fashion; 0 Vicryl for the deep layer, 2-0 Vicryl for the subcutaneous and lise on the skin. We then let the tourniquet down. We started on the left side. I started with an incision over the fibular fracture site, which was fairly proximal and was a very proximal fragment. It was right in an area where there was some fracture blisters on the lateral aspect. So, I ended up deciding to try to do this more minimally invasive. So, I made an incision right over that fracture and then I made an incision down on the very distal end of the fibula, leaving the skin bridge right in the middle. The fracture site was very comminuted. There was 1 area of cortex that did line up really well. So, we lined those up well,came down distal, made an incision. The distal fibula actually looked pretty good, but the anterior lateral aspect of the tibia was fractured off and that was a joint piece as well. After I dissected out some more, I could see that the anterior talofibular ligament was ripped off and calcaneofibular ligament was ripped off as well. You could just peer into the ankle joint very easily. I was able to peer into the ankle joint. There was an extremely large piece of cartilage that was Sheared off. It had no bone on it at all on the bottom, so ended up just taking it out. I cleaned out the ankle joint as best we could. There was a little bit of bone fragments that were in the joint we cleaned out as well. I then reduced the anterolateral tibia fragment and then placed a 4-0 cancellous screw to hold it in place. Next, I had very good purchase with it. I then decided to span the whole distal fibula so we could use syndesmotic fixation and stabilize distally. There was a lot of trauma in that area, so I ended up using a long distal fibular locking plate. I secured it at the fracture site and then was able to secure it distally as well. We left that skin bridge in the middle. I then came over on the medial side. I opened up medially. You could see that there was a tibial pilon fracture there and it was very comminuted on the whole medial side. I was able to peer in at the joint. You could see that area off into the talus that had degloved. The subchondral bone was completely intact; there was just no talar cartilage over that large area. So, I performed ankle arthrotomy through that tibial pilon piece and was able to debride the ankle joint of any loose bodies or tissue that was there. I then was able to reduce that tibial pilon piece, and secured it with multiple 4-0 cancellous screws and ended up having to use 2-0 cortical screws to jama in some of the smaller pieces. I felt we had a really good reduction there and that closed up really well. I then came back to the lateral incision and was able to stabilize the syndesmosis at this point. I ended up drilling up and reduced it down and then put a ZipTight suture button in and really closed that down. I then put 2 Juggernaut suture anchors in and repaired the ATFL and CFL. Performed a Brostrom repair. I then used 0 Vicryl to reinforce that area. So, I felt at this point we had very good stability of this left ankle. We then closed everything in a layered fashion, 0 Vicryl for the deep layer, 2-0 Vicryl for the subcutaneous, and lise on the skin. Adaptic, 4 x 4s, ABDs, soft roll and posterior splints were applied to both legs. He was then awakened from general anesthesia, but taken to the ICU still intubated and somewhat sedated. He will be nonweightbearing bilateral lower extremities. We will continue to follow. cc: Jose Francisco Mccain MD
[2018-10-13] MEDS ORDERED: NS 1,000 ML IV ONE (11:05)
--- NOTE | 2018-10-13 11:45 | PULMONOLOGY PROGRESS NOTE ---
DATE: 10/12/2018 INTERIM HISTORY: Patient was evaluated in the morning. He was arousable and he was on BiPAP. He has subsequently come to the operating room and underwent bilateral open reduction and internal fixation of his bimalleolar fractures with a nailing in the right tibia (operative report pending). He is now on mechanical ventilation. OBJECTIVE: Vital Signs: Blood pressure 135/85, heart rate 97, respiratory rate 15, oxygen saturation 94%. HEENT: Pupils are equal and reactive. Oropharynx appears clear, but dry. Neck: Neck is supple. Chest: Chest reveals coarse crackles bilaterally. Cardiac exam: S1, S2. Abdomen: Soft and without hepatosplenomegaly. Extremities: Reveal postsurgical changes with dressings in place. LABORATORIES: Electrolytes this morning: Sodium 138, potassium 3.3, chloride 95, bicarbonate 28. BUN 15, creatinine 0.8. White blood count 10.02, hemoglobin 9.9, platelet count 145,000. Arterial blood gas: After he returned from the operating room, pH 7.40, pCO2 of 52, PO2 of 81. IMPRESSION: A 58-year-old with: 1. Bilateral aspiration pneumonia. 2. Chronic obstructive pulmonary disease. 3. Acute hypoxemic respiratory failure. 4. Acute hypercapnic respiratory failure. 5. Bilateral lower extremity fractures, status post surgical repair. 6. Delirium. PLAN: 1. Continue mechanical ventilation through the evening and wean oxygen as tolerated. 2. Continue current antibiotic regimen. 3. Continue beta-blockade for tachycardia. 4. Continue DVT prophylaxis. 5. Evaluate for weaning tomorrow morning. Time spent in critical care management: 30+ minutes cc: Tristan Waterman MD [facility]
[2018-10-13] MEDS ORDERED: VANCOMYCIN IV PER PHARMACY MISC SCH (13:30)
[2018-10-13] MEDS: MAXIPIME 2 GM in NS 100 ML IV SCH ×2 (14:28→21:34)
--- NOTE | 2018-10-13 14:53 | ORTHOPAEDICS PROGRESS NOTE ---
DATE: 10/13/2018 SUBJECTIVE: Mr. Nichols is on the ventilator this morning. A little bit sedated. OBJECTIVE: Right lower extremity exam, splint is clean, dry, and intact. Toes have good capillary refill. Overall alignment looked good. Left lower extremity exam, splint is clean, dry, and intact on that side as well. It does appear that 4th toe does have a little bit of an abrasion on it but it looks clean. ASSESSMENT: Status post right intramedullary nailing tibia and bilateral ankle open reduction and internal fixation. PLAN: Mr. Nichols is nonweightbearing bilateral lower extremities. Once he is extubated he will need to be mobilized with physical therapy. We will continue to follow, cc: Jose Francisco Mccain MD
--- NOTE | 2018-10-13 15:09 | Diag Imaging Result Doc PS360 ---
EXAM: CT ANGIOGRM PULMONARY ARTERIES INDICATION: Pulmonary embolus TECHNIQUE: This exam was performed using automated exposure control, adjustment of mA or kV according to patient size, and/or use of iterative reconstruction technique. COMPARISON: 10/08/2018 FINDINGS: There is excessive respiratory motion artifact. This could limit the ability to detect small pulmonary emboli, especially in the distal branches. However, no well-defined pulmonary artery filling defects can be identified to indicate pulmonary embolism. There is stable mild aneurysmal dilation of the ascending aorta. There is no evidence of aortic dissection. An ET tube is in place with the tip in the trachea and above the norma in the expected position. There is also an NG tube. The tip of the NG tube is in the distal esophagus. The mediastinum is stable, otherwise. Pulmonary emphysema is again noted. The atelectasis at the right lung base posteriorly has worsened. There is also very likely a component of pneumonia. The mild left basilar atelectasis is stable. No other new consolidation is identified. There is no pleural fluid collection and no pneumothorax. Limited views of the upper abdomen are essentially unremarkable. IMPRESSION: 1.Excessive respiratory motion artifact, which may limit detection of small pulmonary emboli, especially in the distal branches. However, no discrete pulmonary embolism can be identified on this study. 2.NG tube with the tip in the distal esophagus. 3.Worsening consolidation and atelectasis at the right lung base. 4.Otherwise, the chest is essentially stable. Electronically signed by Axel Morris 10/13/2018 3:07 PM
[2018-10-13] MEDS: VANCOMYCIN 2 GM in NS 500 ML IV SCH (15:38)
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
--- NOTE | 2018-10-13 21:19 | PULMONOLOGY PROGRESS NOTE ---
DATE: 10/13/2018 SUBJECTIVE: The patient opens his eyes to voice with holding of propofol. OBJECTIVE: Blood pressure 99/69, heart rate 106, respiratory rate 24, oxygen saturation 96%, temperature maxed out at 102.7 last evening.HEENT: Pupils are equal and reactive. Oropharynx is clear. Neck: Supple. Chest: Occasional rhonchi bilaterally. Cardiac: Increased rate, regular rhythm. Abdomen: Soft. Extremities: Postsurgical dressings in place. LABORATORY AND DIAGNOSTIC DATA: White blood count 10.15, hemoglobin 9.7, platelet 158,000. Sodium 136, potassium 3.5, chloride 94, BUN 17, creatinine 0.9, glucose 162. Arterial blood gas reveals a pH 7.53, pCO2 of 41, PO2 of 79, on 75% FiO2. Chest x-ray reveals slight increased opacity at the right base. Microbiology reveals sputum culture without growth. IMPRESSION: A 58-year-old with: 1. Pneumonia. 2. Chronic obstructive pulmonary disease. 3. Acute hypoxemic respiratory failure. 4. Acute hypercapnic respiratory failure. 5. Bilateral lower extremity fracture, status post surgical repair. DISCUSSION: A 58-year-old with problems outlined above. His minute ventilation and oxygen requirements appear out of proportion to radiographic findings. With prior fractures of the lower extremities, I will pursue an angiogram today to see if we need to increase his anticoagulation in the event of pulmonary embolus. PLAN: 1. Continue mechanical ventilation given increased oxygen requirements and increased minute ventilation. 2. Continue current antibiotic regimen. 3. Continue beta blockade. 4. One L of normal saline, followed by CT pulmonary angiogram. Time spent in critical. Management: 30+ minutes cc: Tristan Waterman MD [facility]
[2018-10-14] MEDS: HUMALOG SUBQ SCH ×6 (00:38→21:39)
[2018-10-14] MEDS: LOPRESSOR 10 MG in NS 50 ML IV SCH ×6 (00:39→21:39)
[2018-10-14] MEDS: TYLENOL PR PRN (00:41)
[2018-10-14] MEDS: MORPHINE IV PRN (00:41)
[2018-10-14] MEDS: DIPRIVAN 1% 1,000 MG/100 ML BOTTLE IV SCH ×5 (00:43→21:41)
[2018-10-14] MEDS: DUONEB (A & A) INH SCH ×6 (03:11→22:44)
[2018-10-14] MEDS: HEPARIN SUBQ SCH ×3 (04:28→21:39)
[2018-10-14] MEDS: MAXIPIME 2 GM in NS 100 ML IV SCH ×3 (04:28→21:39)
[2018-10-14 04:43] LABS: ALLEN TEST YES; BE 6.9 mmoll (-3.0-3.0); BLOOD TYPE ARTERIAL; HCO3-(ACT) 30.2 mmoll (20.0-26.0); METHB 0.9 % (0.0-1.5); O2(CT) 11.4 mL/dL (15.0-23.0); O2HB 91.9 % (95.0-99.0); PCO2(98.6) 43 mmHg (35-45); PO2(98.6) 62 mmHg (60-100); SAMPLE BLOOD; SAO2 94.2 % (95.0-100.0); SRATE 15 BPM; THB 8.8 g/dL (11.5-17.4); TVOL 650 mL; pH(98.6) 7.47 (7.35-7.45)
[2018-10-14 04:44] LABS: MODALITY VENTILATOR
[2018-10-14 06:45] LABS: AGAP 11; ALB/GLOB RATIO 0.7; ALBUMIN 2.3 g/dL (3.5-5.0); ALKALINE PHOSPHATASE 47 U/L (32-122); BUN 17 mg/dL (8-22); CALCIUM 7.9 mg/dL (8.8-10.2); CHLORIDE 99 mmol/L (98-107); COSMO 281; CREATININE 0.8 mg/dL (0.7-1.2); ESTIMATED GFR > 60; GLUCOSE 125 mg/dL (70-104); GOT 20 U/L (10-34); GPT 8 U/L (10-44); POTASSIUM 3.2 mmol/L (3.5-5.1); SODIUM 139 mmol/L (136-145); TCO2 29 mmol/L (25-35); TOTAL BILIRUBIN 0.56 mg/dL (0.20-1.00); TOTAL PROTEIN 5.5 g/dL (6.3-8.3)
[2018-10-14 07:02] LABS: BASO# 0.01 X1000 (0.0-0.2); BASO% 0.1 % (0.0-0.8); EOS# 0.22 X1000 (0.0-0.7); EOS% 2.4 % (0.0-10.0); HEMOGLOBIN 8.4 g/dL (14.0-18.0); IMM GRAN# 0.03 X1000 (0.0-0.04); IMM GRAN% 0.3 % (0.0-0.5); LYMPH# 1.38 X1000 (1.2-3.4); LYMPH% 15.1 % (20.5-51.1); MCH 28.2 PG (27-31); MCHC 31.1 g/dL (33-37); MCV 90.6 FL (81-99); MONO# 0.86 X1000 (0.11-0.59); MONO% 9.4 % (1.7-9.3); MPV 13.7 FL (7.4-10.4); NEUT# 6.65 X1000 (1.4-6.5); NEUT% 72.7 % (42.2-75.2); PLT 134 X1000 (130-400); RBC 2.98 XMIL (4.7-6.1); RDW 15.4 % (11.5-14.5); WBC 9.15 X1000 (4.8-10.8)
[2018-10-14] MEDS: VANCOMYCIN 2 GM in NS 500 ML IV SCH (08:42)
[2018-10-14] MEDS: NEXIUM IV SCH (08:42)
[2018-10-14] MEDS: D5 1/2 NS 1,000 ML IV SCH (08:42)
[2018-10-14 09:08] LABS: RETIC% 1.44 % (0.8-2.1); RETIC-HE 28.3 PG (28.2-36.6)
[2018-10-14] MEDS: POTASSIUM CHLORIDE 20 MEQ/SWI 20 MEQ/100 ML IVPB IV SCH ×2 (09:24→11:10)
[2018-10-14 09:47] LABS: TOTAL IRON < 5 ug/dL (53-167); UNBOUND IRON 181 ug/dL (112-346)
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
--- NOTE | 2018-10-14 15:03 | ORTHOPAEDICS PROGRESS NOTE ---
DATE: 10/14/2018 SUBJECTIVE: Mr. Nichols lying in ICU bed still on ventilator. OBJECTIVE: Bilateral lower extremity exams, both legs are in splints. He has good capillary refill to the toes. He is not responding any questions secondary to being a little bit sedated. ASSESSMENT: Status post right tibia intramedullary nailing and bilateral ankle open reduction and internal fixation. PLAN: Mr. Nichols is nonweightbearing bilateral lower extremities for a month. From orthopedic standpoint will take more of a back seat at this time to let medicine team try to get his lungs better and get him extubated. We are available for anything that may come up. cc: Jose Francisco Mccain MD
--- NOTE | 2018-10-14 20:54 | PULMONOLOGY PROGRESS NOTE ---
DATE: 10/14/2018 SUBJECTIVE: The patient is sedated. He remains on high oxygen concentration. He has an elevated minute ventilation. OBJECTIVE: Vital Signs: Maximum temperature in the last 24 hours 100.8 degrees, BP 116/74, heart rate 115, respiratory rate 26, oxygen saturation 95% on 60% FiO2. HEENT: Pupils are equal and reactive. Oropharynx appears clear. Neck: Supple. Chest: Reveals decreased breath sounds right base. Cardiac: S1, S2. Abdomen: Soft with diminished bowel sounds. Extremities: Reveal surgical dressings in place on both feet and ankles. LABORATORY: White blood count 9.15, hemoglobin 8.4, platelet count 134,000. Sodium 139, potassium 3.2, chloride 99, bicarbonate 29, BUN 17, creatinine 0.8, glucose 125. White blood count 9.15, hemoglobin 8.4, platelet count 134,000. Arterial blood gas reveals a pH 7.47, pCO2 of 43, pO2 of 62. CT angiogram yesterday revealed no evidence of pulmonary emboli but there was some motion artifact. Increased atelectasis and consolidation at the right base. IMPRESSION: 58-year-old with 1. Pneumonia. 2. Delirium. 3. Chronic obstructive pulmonary disease. 4. Acute hypoxemic respiratory failure and acute hypercapnic respiratory failure. 5. Bilateral lower extremity fracture status post repair. PLAN: 1. Continue mechanical ventilation. Daily weaning in progress but limited due to increase minute ventilation, pneumonia, and increased oxygen requirements. 2. Continue current antibiotic regimen. 3. Continue beta blockade. 4. Anticipate the initiation of tube feeds or peripheral parenteral nutrition if he does not rapidly improve. TIME SPENT CRITICAL CARE: 30+ minutes. cc: Tristan Waterman MD
[2018-10-15] MEDS: MORPHINE IV PRN ×2 (00:24→14:26)
[2018-10-15] MEDS: LOPRESSOR 10 MG in NS 50 ML IV SCH ×6 (00:28→19:43)
[2018-10-15] MEDS: HUMALOG SUBQ SCH ×6 (01:13→19:25)
[2018-10-15] MEDS: VANCOMYCIN 2 GM in NS 500 ML IV SCH ×2 (02:34→21:44)
[2018-10-15] MEDS: DUONEB (A & A) INH SCH ×6 (03:31→23:09)
[2018-10-15] MEDS: HEPARIN SUBQ SCH ×3 (04:18→20:53)
[2018-10-15] MEDS: MAXIPIME 2 GM in NS 100 ML IV SCH ×3 (04:18→20:53)
[2018-10-15 04:40] LABS: ALLEN TEST YES; BE 5.1 mmoll (-3.0-3.0); BLOOD TYPE ARTERIAL; HCO3-(ACT) 28.9 mmoll (20.0-26.0); METHB 0.9 % (0.0-1.5); O2(CT) 12.5 mL/dL (15.0-23.0); O2HB 94.9 % (95.0-99.0); PCO2(98.6) 39 mmHg (35-45); PO2(98.6) 74 mmHg (60-100); SAMPLE BLOOD; SAO2 96.9 % (95.0-100.0); SRATE 15 BPM; THB 9.3 g/dL (11.5-17.4); TVOL 650 mL; pH(98.6) 7.48 (7.35-7.45)
[2018-10-15 04:43] LABS: MODALITY VENTILATOR
[2018-10-15 06:32] LABS: AGAP 12; ALB/GLOB RATIO 0.7; ALBUMIN 2.3 g/dL (3.5-5.0); ALKALINE PHOSPHATASE 49 U/L (32-122); BUN 14 mg/dL (8-22); CALCIUM 7.6 mg/dL (8.8-10.2); CHLORIDE 100 mmol/L (98-107); COSMO 277; CREATININE 0.6 mg/dL (0.7-1.2); ESTIMATED GFR > 60; GLUCOSE 121 mg/dL (70-104); GOT 27 U/L (10-34); GPT 10 U/L (10-44); POTASSIUM 3.2 mmol/L (3.5-5.1); SODIUM 138 mmol/L (136-145); TCO2 26 mmol/L (25-35); TOTAL BILIRUBIN 0.45 mg/dL (0.20-1.00); TOTAL PROTEIN 5.5 g/dL (6.3-8.3)
[2018-10-15] MEDS: SODIUM CHLORIDE 0.9% INJ SCH (08:18)
[2018-10-15] MEDS: D5 1/2 NS 1,000 ML IV SCH (08:18)
[2018-10-15] MEDS: NEXIUM IV SCH (08:18)
[2018-10-15] MEDS: POTASSIUM CHLORIDE 20 MEQ/SWI 20 MEQ/100 ML IVPB IV SCH ×2 (09:13→10:30)
[2018-10-15 09:39] LABS: BASO# 0.02 X1000 (0.0-0.2); BASO% 0.2 % (0.0-0.8); EOS# 0.43 X1000 (0.0-0.7); EOS% 4.4 % (0.0-10.0); HEMATOCRIT 27.6 % (42.0-52.0); HEMOGLOBIN 8.6 g/dL (14.0-18.0); IMM GRAN# 0.05 X1000 (0.0-0.04); IMM GRAN% 0.5 % (0.0-0.5); LYMPH# 1.15 X1000 (1.2-3.4); LYMPH% 11.7 % (20.5-51.1); MCH 28.3 PG (27-31); MCHC 31.2 g/dL (33-37); MCV 90.8 FL (81-99); MONO# 1.26 X1000 (0.11-0.59); MONO% 12.8 % (1.7-9.3); MPV 12.6 FL (7.4-10.4); NEUT# 6.91 X1000 (1.4-6.5); NEUT% 70.4 % (42.2-75.2); PLT 193 X1000 (130-400); RBC 3.04 XMIL (4.7-6.1); RDW 16.1 % (11.5-14.5); WBC 9.82 X1000 (4.8-10.8)
--- NOTE | 2018-10-15 09:41 | Diag Imaging Result Doc PS360 ---
EXAM: CHEST-PORTABLE 10/15/2018 HISTORY: abnormal exam TECHNIQUE: AP portable semiupright at 0919 COMMENT: There is an endotracheal tube with its tip at thoracic inlet and an NG tube which passes below the diaphragm. There are platelike atelectatic changes over the right base. The heart size and pulmonary vascularity are within normal limits. Compared to 10/13/2018 the bibasilar atelectasis which was present previously has improved. IMPRESSION: Improved atelectasis. Electronically signed by Gonzalez Gonzales 10/15/2018 9:39 AM
[2018-10-15] MEDS: DIPRIVAN 1% 1,000 MG/100 ML BOTTLE IV SCH ×4 (10:27→22:33)
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
--- NOTE | 2018-10-15 13:27 | Diag Imaging Result Doc PS360 ---
EXAM: CHEST-PORTABLE 10/15/2018 HISTORY: NGT placement TECHNIQUE: AP portable semiupright at 1315 COMMENT: There is an NG tube with its tip below the diaphragm. There is an endotracheal tube with its tip at the thoracic inlet. IMPRESSION: NG tube in the stomach. Electronically signed by Gonzalez Gonzales 10/15/2018 1:25 PM
[2018-10-15 14:20] LABS: PHOSPHORUS 2.9 mg/dL (2.7-4.5); PREALBUMIN 6.2 mg/dL (20-40)
[2018-10-15] MEDS ORDERED: LASIX IV ONE (21:29)
[2018-10-16] MEDS: HUMALOG SUBQ SCH ×5 (00:04→15:42)
[2018-10-16] MEDS: LOPRESSOR 10 MG in NS 50 ML IV SCH ×6 (00:05→20:13)
[2018-10-16] MEDS: DIPRIVAN 1% 1,000 MG/100 ML BOTTLE IV SCH ×2 (01:46→05:33)
[2018-10-16] MEDS: DUONEB (A & A) INH SCH ×6 (03:24→23:13)
[2018-10-16 04:33] LABS: ALLEN TEST YES; BE 6.1 mmoll (-3.0-3.0); BLOOD TYPE ARTERIAL; HCO3-(ACT) 29.7 mmoll (20.0-26.0); METHB 0.7 % (0.0-1.5); O2(CT) 12.9 mL/dL (15.0-23.0); PCO2(98.6) 37 mmHg (35-45); PO2(98.6) 72 mmHg (60-100); SAMPLE BLOOD; SAO2 98.4 % (95.0-100.0); SRATE 15 BPM; THB 9.6 g/dL (11.5-17.4); TVOL 650 mL; pH(98.6) 7.51 (7.35-7.45)
[2018-10-16 04:34] LABS: MODALITY VENTILATOR
[2018-10-16] MEDS: MAXIPIME 2 GM in NS 100 ML IV SCH ×3 (04:49→20:13)
[2018-10-16] MEDS: HEPARIN SUBQ SCH ×3 (04:49→20:13)
[2018-10-16 04:53] LABS: BASO# 0.03 X1000 (0.0-0.2); BASO% 0.3 % (0.0-0.8); EOS# 0.45 X1000 (0.0-0.7); EOS% 4.2 % (0.0-10.0); HEMATOCRIT 29.8 % (42.0-52.0); HEMOGLOBIN 9.4 g/dL (14.0-18.0); IMM GRAN# 0.08 X1000 (0.0-0.04); IMM GRAN% 0.7 % (0.0-0.5); LYMPH# 1.58 X1000 (1.2-3.4); LYMPH% 14.8 % (20.5-51.1); MCH 28.6 PG (27-31); MCHC 31.5 g/dL (33-37); MCV 90.6 FL (81-99); MONO# 1.41 X1000 (0.11-0.59); MONO% 13.2 % (1.7-9.3); NEUT# 7.16 X1000 (1.4-6.5); NEUT% 66.8 % (42.2-75.2); PLT 215 X1000 (130-400); RBC 3.29 XMIL (4.7-6.1); WBC 10.71 X1000 (4.8-10.8)
[2018-10-16 05:09] LABS: AGAP 10; ALB/GLOB RATIO 0.7; ALBUMIN 2.4 g/dL (3.5-5.0); ALKALINE PHOSPHATASE 58 U/L (32-122); BUN 14 mg/dL (8-22); CALCIUM 8.6 mg/dL (8.8-10.2); CHLORIDE 97 mmol/L (98-107); COSMO 273; CREATININE 0.6 mg/dL (0.7-1.2); ESTIMATED GFR > 60; GLUCOSE 135 mg/dL (70-104); GOT 42 U/L (10-34); GPT 16 U/L (10-44); POTASSIUM 3.6 mmol/L (3.5-5.1); SODIUM 135 mmol/L (136-145); TCO2 28 mmol/L (25-35); TOTAL BILIRUBIN 0.44 mg/dL (0.20-1.00)
[2018-10-16] MEDS ORDERED: PRILOSEC PO ONE (07:37)
--- NOTE | 2018-10-16 07:49 | PULMONOLOGY PROGRESS NOTE ---
DATE: 10/15/2018 SUBJECTIVE: The patient remains on mechanical ventilation. He does respond to stimuli. He continues to have an elevated minute ventilation. OBJECTIVE: Vital Signs: The patient has been afebrile for the last 24 hours. BP 103/65, heart rate 99, respiratory rate 22, oxygen saturation 95% on 60% FiO2. HEENT: Pupils are equal. Oropharynx appears clear. Neck: Supple. Chest: Coarse breath sounds bilaterally. Cardiac: Regular rate. Normal S1, normal S2. Abdomen: Soft with positive bowel sounds. Extremities: Postsurgical casting on the lower extremities. IMAGING AND LABORATORY DATA: Chest x-ray reveals some decrease in basilar atelectasis. White blood count 9.82, hemoglobin 8.6, platelet count 193,000. Sodium 138, potassium 3.2, chloride 100, bicarbonate 26, BUN 14, creatinine 0.6. IMPRESSION: A 58-year-old with: 1. Chronic obstructive pulmonary disease. 2. Pneumonia. 3. Acute hypoxemic respiratory failure and acute hypercapnic respiratory failure. 4. Delirium. 5. Bilateral lower extremity fracture, status post repair. PLAN: 1. Continue mechanical ventilation. His minute ventilation continues to remain elevated, and he becomes significantly tachypneic when his ventilatory support has been decreased. He also has significant oxygen requirements. 2. Continue current antibiotic regimen. 3. Continue beta blockade. 4. Agree with plans for initiation of tube feeds. TIME SPENT: Critical care management was 30+ minutes. cc: Tristan Waterman MD
[2018-10-16 07:59] LABS: MAGNESIUM 1.9 mg/dL (1.5-2.7); PHOSPHORUS 2.8 mg/dL (2.7-4.5)
--- NOTE | 2018-10-16 07:59 | EKG Report ---
Test Performed on : 10/16/2018 07:48:24 AM Test Reason : Follow up EKG Blood Pressure : / mmHG Vent. Rate : 110 BPM Atrial Rate : 110 BPM P-R Int : 136 ms QRS Dur : 106 ms QT Int : 352 ms P-R-T Axes : 057 036 030 degrees QTc Int : 476 ms Sinus tachycardia. with frequent premature ventricular complexes. Possible Left atrial enlargement Possible Inferior infarct (cited on or before 12-SEP-2013) Abnormal ECG When compared with ECG of 08-OCT-2018 05:26, (Unconfirmed) premature ventricular complexes. are now present Confirmed by Emanuel Rey MD ([id number]) on 10/17/2018 6:21:27 PM
--- NOTE | 2018-10-16 08:15 | Diag Imaging Result Doc PS360 ---
EXAM: CHEST-PORTABLE INDICATION: respiratory failure TECHNIQUE: One view COMPARISON: 10/15/2018 FINDINGS: Support tubes and lines appear to be in stable positions. The patient is rotated slightly toward the right. Platelike atelectasis at the right lung base is approximately stable given differences in positioning. No new consolidation is identified. Cardiac silhouette is stable. IMPRESSION: Essentially stable chest. Electronically signed by Axel Morris 10/16/2018 8:12 AM
[2018-10-16] MEDS ORDERED: LASIX IV ONE (09:24)
[2018-10-16 10:09] LABS: ALLEN TEST YES; BE 5.5 mmoll (-3.0-3.0); BLOOD TYPE ARTERIAL; HCO3-(ACT) 29.1 mmoll (20.0-26.0); O2(CT) 15.8 mL/dL (15.0-23.0); O2HB 92.8 % (95.0-99.0); PCO2(98.6) 37 mmHg (35-45); PO2(98.6) 67 mmHg (60-100); SAMPLE BLOOD; SAO2 95.1 % (95.0-100.0); THB 12.1 g/dL (11.5-17.4)
[2018-10-16 10:10] LABS: MODALITY VENTILATOR
[2018-10-16] MEDS: VANCOMYCIN 2 GM in NS 500 ML IV SCH ×2 (10:21→22:02)
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
[2018-10-16] MEDS: ATIVAN IV PRN ×2 (19:45→23:45)
[2018-10-16] MEDS: MORPHINE IV PRN (21:34)
[2018-10-17] MEDS: LOPRESSOR 10 MG in NS 50 ML IV SCH ×6 (00:39→20:07)
[2018-10-17] MEDS: HUMALOG SUBQ SCH ×3 (00:39→15:31)
[2018-10-17] MEDS: MORPHINE IV PRN ×3 (03:09→20:17)
[2018-10-17] MEDS: DUONEB (A & A) INH SCH ×6 (03:32→23:01)
[2018-10-17] MEDS: ATIVAN IV PRN ×2 (03:45→07:42)
--- NOTE | 2018-10-17 04:24 | PULMONOLOGY PROGRESS NOTE ---
CORRECTED REPORT 10/17/2018 DATE: 10/16/2018 SUBJECTIVE: Patient sedation is on hold. He does open his eyes. He does look around the room. He was placed on a spontaneous breathing trial and it ended well. Repeat blood gas was acceptable. He has subsequently been extubated. OBJECTIVE: Vital signs: The patient has been afebrile for the last 24 hours. Blood pressure 132/82, heart rate 109, respiratory rate 19, oxygen saturation 94%. HEENT: Pupils are equal and reactive. Oropharynx is clear. Neck: Supple. Chest: Reveals occasional rhonchi bilaterally Cardiac: S1 and S2. Abdomen: Soft. Positive bowel sounds. Extremities: Without change with surgical casts on both lower extremities. LABORATORIES: Chest x-ray reveals plate-like atelectasis at the right base without significant change. No new consolidation present. Arterial blood gas, pH 7.51, pCO2 is 37, PaO2 of 72. Following spontaneous breathing trial, pH 7.50, pCO2 of 37, PO2 of 67. White blood count 10.71, hemoglobin 9.4, platelet count 215,000. Sodium 135, potassium 3.6, chloride 97, bicarbonate 28, BUN 14, creatinine 0.6. IMPRESSION: A 58-year-old with 1. Chronic obstructive pulmonary disease. 2. Pneumonia. 3. Acute hypoxemic respiratory failure with acute hypercapnic respiratory failure. 4. Status post bilateral lower extremity fractures requiring surgical repair. 5. Resolving delirium. PLAN: 1. Extubation as outlined above. Patient is doing well off mechanical ventilation. 2. Continue current antibiotic regimen. 3. Continue beta blockade. 4. Hold tube feeds until tomorrow. Will either initiate a diet or begin temporary PPN. TIME SPENT: In critical care management 30+ minutes. cc: Tristan Waterman MD
[2018-10-17 04:39] LABS: ALLEN TEST YES; BE 5.9 mmoll (-3.0-3.0); BLOOD TYPE ARTERIAL; HCO3-(ACT) 29.6 mmoll (20.0-26.0); PCO2(98.6) 39 mmHg (35-45); PO2(98.6) 104 mmHg (60-100); SAMPLE BLOOD; pH(98.6) 7.49 (7.35-7.45)
[2018-10-17 04:40] LABS: MODALITY PRB
[2018-10-17] MEDS: MAXIPIME 2 GM in NS 100 ML IV SCH ×3 (04:57→20:14)
[2018-10-17] MEDS: HEPARIN SUBQ SCH ×3 (04:57→20:13)
[2018-10-17 05:36] LABS: BASO# 0.04 X1000 (0.0-0.2); BASO% 0.4 % (0.0-0.8); EOS% 2.6 % (0.0-10.0); HEMATOCRIT 31.6 % (42.0-52.0); HEMOGLOBIN 9.8 g/dL (14.0-18.0); IMM GRAN# 0.16 X1000 (0.0-0.04); IMM GRAN% 1.4 % (0.0-0.5); LYMPH# 1.69 X1000 (1.2-3.4); LYMPH% 14.9 % (20.5-51.1); MCH 28.2 PG (27-31); MCV 90.8 FL (81-99); MONO# 1.68 X1000 (0.11-0.59); MONO% 14.8 % (1.7-9.3); NEUT% 65.9 % (42.2-75.2); PLT 276 X1000 (130-400); RBC 3.48 XMIL (4.7-6.1); RDW 15.7 % (11.5-14.5); WBC 11.37 X1000 (4.8-10.8)
[2018-10-17 05:54] LABS: AGAP 13; ALB/GLOB RATIO 0.7; ALBUMIN 2.6 g/dL (3.5-5.0); ALKALINE PHOSPHATASE 63 U/L (32-122); BUN 20 mg/dL (8-22); CALCIUM 8.6 mg/dL (8.8-10.2); CHLORIDE 99 mmol/L (98-107); COSMO 281; CREATININE 0.7 mg/dL (0.7-1.2); ESTIMATED GFR > 60; GLUCOSE 116 mg/dL (70-104); GOT 38 U/L (10-34); GPT 21 U/L (10-44); POTASSIUM 3.5 mmol/L (3.5-5.1); SODIUM 139 mmol/L (136-145); TCO2 27 mmol/L (25-35); TOTAL BILIRUBIN 0.63 mg/dL (0.20-1.00); TOTAL PROTEIN 6.2 g/dL (6.3-8.3)
[2018-10-17] MEDS: PRILOSEC PO SCH (06:05)
--- NOTE | 2018-10-17 06:59 | Diag Imaging Result Doc PS360 ---
EXAM: CHEST-PORTABLE 10/17/2018 HISTORY: respiratory failure TECHNIQUE: AP portable at 0517 COMMENT: Compared to the previous examination of 10/16/2018, the interstitial opacity present previously has improved slightly. There is also slight improvement in the atelectasis of the right base. IMPRESSION: Improved pulmonary edema and atelectasis. Electronically signed by Gonzalez Gonzales 10/17/2018 6:57 AM
[2018-10-17] MEDS: POTASSIUM CHLORIDE 20 MEQ/SWI 20 MEQ/100 ML IVPB IV SCH ×2 (08:40→10:16)
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
[2018-10-17] MEDS: VANCOMYCIN 2 GM in NS 500 ML IV SCH (10:16)
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
[2018-10-17] MEDS: HALDOL IV PRN (17:23)
[2018-10-18] MEDS: MORPHINE IV PRN ×5 (00:48→21:15)
[2018-10-18] MEDS: VANCOMYCIN 2 GM in NS 500 ML IV SCH ×3 (00:49→22:17)
[2018-10-18] MEDS: LOPRESSOR 10 MG in NS 50 ML IV SCH ×2 (00:51→04:15)
[2018-10-18] MEDS: HUMALOG SUBQ SCH ×3 (00:56→15:50)
[2018-10-18] MEDS: DUONEB (A & A) INH SCH ×6 (03:28→23:22)
[2018-10-18] MEDS: MAXIPIME 2 GM in NS 100 ML IV SCH ×3 (05:42→21:00)
[2018-10-18] MEDS: HEPARIN SUBQ SCH ×3 (05:42→21:00)
[2018-10-18] MEDS: HALDOL IV PRN (05:43)
[2018-10-18] MEDS: PRILOSEC PO SCH (06:01)
[2018-10-18 06:42] LABS: BASO# 0.04 X1000 (0.0-0.2); BASO% 0.4 % (0.0-0.8); EOS# 0.25 X1000 (0.0-0.7); EOS% 2.4 % (0.0-10.0); HEMATOCRIT 28.9 % (42.0-52.0); HEMOGLOBIN 8.9 g/dL (14.0-18.0); IMM GRAN# 0.21 X1000 (0.0-0.04); LYMPH# 1.65 X1000 (1.2-3.4); LYMPH% 15.6 % (20.5-51.1); MCH 28.1 PG (27-31); MCHC 30.8 g/dL (33-37); MCV 91.2 FL (81-99); MONO# 1.35 X1000 (0.11-0.59); MONO% 12.7 % (1.7-9.3); MPV 12.4 FL (7.4-10.4); NEUT# 7.11 X1000 (1.4-6.5); NEUT% 66.9 % (42.2-75.2); PLT 332 X1000 (130-400); RBC 3.17 XMIL (4.7-6.1); RDW 15.5 % (11.5-14.5); WBC 10.61 X1000 (4.8-10.8)
[2018-10-18 07:03] LABS: AGAP 11; ALB/GLOB RATIO 0.7; ALBUMIN 2.5 g/dL (3.5-5.0); ALKALINE PHOSPHATASE 62 U/L (32-122); BUN 17 mg/dL (8-22); CALCIUM 8.4 mg/dL (8.8-10.2); CHLORIDE 101 mmol/L (98-107); COSMO 274; CREATININE 0.6 mg/dL (0.7-1.2); ESTIMATED GFR > 60; GLUCOSE 106 mg/dL (70-104); GOT 27 U/L (10-34); GPT 17 U/L (10-44); POTASSIUM 3.3 mmol/L (3.5-5.1); SODIUM 136 mmol/L (136-145); TCO2 24 mmol/L (25-35); TOTAL BILIRUBIN 0.62 mg/dL (0.20-1.00); TOTAL PROTEIN 5.9 g/dL (6.3-8.3)
[2018-10-18] MEDS ORDERED: KLOR-CON PO SCH (07:30)
--- NOTE | 2018-10-18 07:38 | Diag Imaging Result Doc PS360 ---
EXAM: CHEST-PORTABLE INDICATION: respiratory failure TECHNIQUE: One view COMPARISON: 10/17/2018 FINDINGS: The right basilar density appears slightly more prominent than the previous study likely representing atelectasis +/- pneumonia. No other new consolidation is identified. Cardiac silhouette is stable. IMPRESSION: Slight increase in the density at the right lung base that probably represents atelectasis +/- pneumonia. Electronically signed by Axel Morris 10/18/2018 7:37 AM
[2018-10-18] MEDS ORDERED: XANAX PO PRN (07:41)
[2018-10-18] MEDS: ZOFRAN IV PRN (08:05)
[2018-10-18] MEDS: IMDUR PO SCH (08:11)
[2018-10-18] MEDS: TOPROL XL PO SCH ×2 (08:11→09:42)
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
[2018-10-18] MEDS: LASIX IV SCH ×2 (09:41→21:00)
[2018-10-18] MEDS: POTASSIUM CHLORIDE 20 MEQ/SWI 20 MEQ/100 ML IVPB IV SCH ×2 (12:43→15:19)
[2018-10-18] MEDS: SYMBICORT 160/4.5 MICROGM INHALER INH SCH (17:59)
[2018-10-18] MEDS: XANAX PO PRN (21:00)
[2018-10-18] MEDS: NORVASC PO SCH (21:00)
[2018-10-18] MEDS: CRESTOR PO SCH (21:00)
[2018-10-19] MEDS: HUMALOG SUBQ SCH ×2 (00:22→07:46)
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
[2018-10-19] MEDS: SYMBICORT 160/4.5 MICROGM INHALER INH SCH ×3 (02:12→19:07)
[2018-10-19] MEDS: MORPHINE IV PRN ×5 (03:00→20:31)
[2018-10-19] MEDS: DUONEB (A & A) INH SCH ×5 (03:34→19:08)
[2018-10-19] MEDS: PRILOSEC PO SCH (06:00)
[2018-10-19] MEDS: MAXIPIME 2 GM in NS 100 ML IV SCH ×3 (06:00→20:32)
[2018-10-19 07:01] LABS: AGAP 14; CHLORIDE 98 mmol/L (98-107); GLUCOSE 100 mg/dL (70-104); POTASSIUM 3.4 mmol/L (3.5-5.1); SODIUM 136 mmol/L (136-145); TCO2 24 mmol/L (25-35)
[2018-10-19 07:02] LABS: ALB/GLOB RATIO 0.8; ALBUMIN 2.4 g/dL (3.5-5.0); ALKALINE PHOSPHATASE 64 U/L (32-122); BUN 12 mg/dL (8-22); CALCIUM 8.3 mg/dL (8.8-10.2); COSMO 272; CREATININE 0.6 mg/dL (0.7-1.2); ESTIMATED GFR > 60; GOT 23 U/L (10-34); GPT 16 U/L (10-44); TOTAL BILIRUBIN 0.59 mg/dL (0.20-1.00); TOTAL PROTEIN 5.6 g/dL (6.3-8.3)
--- NOTE | 2018-10-19 07:25 | Diag Imaging Result Doc PS360 ---
EXAM: CHEST-PORTABLE INDICATION: respiratory failure TECHNIQUE: One view COMPARISON: 10/18/2018 FINDINGS: The right basilar opacity seen on the previous study representing atelectasis +/- pneumonia has improved. No new consolidation is identified. Cardiac silhouette is stable. IMPRESSION: Interval improvement of right basilar opacity. Electronically signed by Axel Morris 10/19/2018 7:22 AM
[2018-10-19] MEDS: HEPARIN SUBQ SCH (07:33)
[2018-10-19] MEDS: KLOR-CON PO SCH ×2 (07:53→11:46)
[2018-10-19] MEDS: XANAX PO PRN ×2 (07:53→20:31)
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
[2018-10-19] MEDS: IMDUR PO SCH (09:06)
[2018-10-19] MEDS: HALDOL IV PRN ×3 (09:06→23:08)
[2018-10-19] MEDS: TOPROL XL PO SCH (09:06)
[2018-10-19] MEDS: LOVENOX SUBQ SCH (09:06)
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
[2018-10-19] MEDS: ZOFRAN IV PRN (14:01)
[2018-10-19] MEDS: VANCOMYCIN 1,750 MG in NS 250 ML IV SCH (16:16)
[2018-10-19] MEDS: ZYPREXA PO SCH (20:30)
[2018-10-19] MEDS: NORVASC PO SCH (20:31)
[2018-10-19] MEDS: CRESTOR PO SCH (20:32)
[2018-10-20] MEDS: MORPHINE IV PRN (03:47)
[2018-10-20] MEDS: DUONEB (A & A) INH SCH ×7 (04:01→23:03)
[2018-10-20] MEDS: VANCOMYCIN 1,750 MG in NS 250 ML IV SCH (04:21)
[2018-10-20] MEDS: MAXIPIME 2 GM in NS 100 ML IV SCH (04:21)
[2018-10-20 06:25] LABS: HEMOGLOBIN 9.7 g/dL (14.0-18.0); MCH 28.3 PG (27-31); MCHC 30.3 g/dL (33-37); MCV 93.3 FL (81-99); RBC 3.43 XMIL (4.7-6.1); RDW 15.3 % (11.5-14.5); WBC 10.56 X1000 (4.8-10.8)
[2018-10-20 06:26] LABS: BASO# 0.03 X1000 (0.0-0.2); BASO% 0.3 % (0.0-0.8); EOS# 0.11 X1000 (0.0-0.7); IMM GRAN# 0.26 X1000 (0.0-0.04); IMM GRAN% 2.5 % (0.0-0.5); LYMPH# 1.86 X1000 (1.2-3.4); LYMPH% 17.6 % (20.5-51.1); MONO% 12.3 % (1.7-9.3); MPV 12.2 FL (7.4-10.4); NEUT% 66.3 % (42.2-75.2); PLT 403 X1000 (130-400)
[2018-10-20] MEDS: PRILOSEC PO SCH (06:32)
--- NOTE | 2018-10-20 06:44 | Diag Imaging Result Doc PS360 ---
CHEST-PORTABLE - 10/20/2018 INDICATION: respiratory failure COMPARISON: 10/19/2018 FINDINGS: Stable sternotomy wires. Lung volumes are lower with some increasing linear atelectasis in the right lung base. No infiltrates or edema. No pneumothorax or large pleural effusion. IMPRESSION: Low lung volumes with right basilar microatelectasis. Electronically signed by Bran Lujan 10/20/2018 6:42 AM
[2018-10-20 06:54] LABS: AGAP 10; ALB/GLOB RATIO 0.8; ALBUMIN 2.8 g/dL (3.5-5.0); ALKALINE PHOSPHATASE 77 U/L (32-122); BUN 12 mg/dL (8-22); CALCIUM 9.1 mg/dL (8.8-10.2); CHLORIDE 100 mmol/L (98-107); COSMO 276; CREATININE 0.7 mg/dL (0.7-1.2); ESTIMATED GFR > 60; GLUCOSE 111 mg/dL (70-104); GOT 20 U/L (10-34); GPT 16 U/L (10-44); SODIUM 138 mmol/L (136-145); TCO2 28 mmol/L (25-35); TOTAL BILIRUBIN 0.57 mg/dL (0.20-1.00); TOTAL PROTEIN 6.2 g/dL (6.3-8.3)
[2018-10-20] MEDS: SYMBICORT 160/4.5 MICROGM INHALER INH SCH ×2 (08:07→19:51)
[2018-10-20] MEDS: ULTRAM PO PRN ×2 (08:38→17:55)
[2018-10-20] MEDS: TOPROL XL PO SCH (08:38)
[2018-10-20] MEDS: XANAX PO PRN ×2 (08:39→19:45)
[2018-10-20] MEDS: LOVENOX SUBQ SCH (08:39)
[2018-10-20] MEDS: IMDUR PO SCH (08:39)
[2018-10-20] MEDS: HALDOL IV PRN ×3 (09:22→17:55)
[2018-10-20] MEDS: LIDODERM TOP SCH (13:40)
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
[2018-10-20] MEDS: NORVASC PO SCH ×2 (19:45→20:03)
[2018-10-20] MEDS: CRESTOR PO SCH ×2 (19:45→20:02)
[2018-10-20] MEDS: ZYPREXA PO SCH (19:46)
[2018-10-21] MEDS: ULTRAM PO PRN ×3 (00:09→20:40)
[2018-10-21] MEDS: HALDOL IV PRN (00:56)
[2018-10-21] MEDS: DUONEB (A & A) INH SCH ×6 (03:15→23:24)
[2018-10-21] MEDS: TYLENOL PO PRN (03:23)
[2018-10-21] MEDS: XANAX PO PRN (03:23)
--- NOTE | 2018-10-21 07:30 | Diag Imaging Result Doc PS360 ---
CHEST-PORTABLE - 10/21/2018 INDICATION: respiratory failure COMPARISON: 10/20/2018 FINDINGS: Stable severely low lung volumes. Stable mild nonspecific infiltrate or atelectasis in the right lung base. Heart size and pulmonary vascularity remains top normal. No large pleural effusion. IMPRESSION: No change from prior. Electronically signed by Bran Lujan 10/21/2018 7:27 AM
[2018-10-21] MEDS: SYMBICORT 160/4.5 MICROGM INHALER INH SCH ×2 (07:58→20:07)
[2018-10-21] MEDS: LOVENOX SUBQ SCH (08:59)
[2018-10-21] MEDS: PRILOSEC PO SCH (08:59)
[2018-10-21] MEDS: TOPROL XL PO SCH (09:00)
[2018-10-21] MEDS: IMDUR PO SCH (09:00)
[2018-10-21] MEDS: LIDODERM TOP SCH (09:04)
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
[2018-10-21] MEDS: NORVASC PO SCH (20:40)
[2018-10-21] MEDS: ZYPREXA PO SCH (20:40)
[2018-10-21] MEDS: CRESTOR PO SCH (20:40)
[2018-10-22] MEDS: HALDOL IV PRN (02:08)
[2018-10-22] MEDS: DUONEB (A & A) INH SCH ×6 (03:12→23:29)
[2018-10-22] MEDS: PRILOSEC PO SCH (06:01)
[2018-10-22 06:25] LABS: BASO# 0.06 X1000 (0.0-0.2); BASO% 0.5 % (0.0-0.8); EOS# 0.03 X1000 (0.0-0.7); EOS% 0.3 % (0.0-10.0); HEMATOCRIT 34.3 % (42.0-52.0); HEMOGLOBIN 10.7 g/dL (14.0-18.0); IMM GRAN# 0.19 X1000 (0.0-0.04); IMM GRAN% 1.7 % (0.0-0.5); LYMPH# 2.37 X1000 (1.2-3.4); LYMPH% 21.5 % (20.5-51.1); MCH 29.1 PG (27-31); MCHC 31.2 g/dL (33-37); MCV 93.2 FL (81-99); MONO# 1.18 X1000 (0.11-0.59); MONO% 10.7 % (1.7-9.3); MPV 11.9 FL (7.4-10.4); NEUT# 7.19 X1000 (1.4-6.5); NEUT% 65.3 % (42.2-75.2); PLT 471 X1000 (130-400); RBC 3.68 XMIL (4.7-6.1); RDW 16.1 % (11.5-14.5); WBC 11.02 X1000 (4.8-10.8)
[2018-10-22 06:27] LABS: AGAP 13; BUN 12 mg/dL (8-22); CALCIUM 9.1 mg/dL (8.8-10.2); CHLORIDE 98 mmol/L (98-107); COSMO 274; CREATININE 0.7 mg/dL (0.7-1.2); ESTIMATED GFR > 60; GLUCOSE 115 mg/dL (70-104); POTASSIUM 3.8 mmol/L (3.5-5.1); SODIUM 137 mmol/L (136-145); TCO2 26 mmol/L (25-35)
[2018-10-22] MEDS: SYMBICORT 160/4.5 MICROGM INHALER INH SCH ×2 (07:35→19:40)
[2018-10-22] MEDS: IMDUR PO SCH (08:23)
[2018-10-22] MEDS: LOVENOX SUBQ SCH (08:24)
[2018-10-22] MEDS: TOPROL XL PO SCH (08:24)
[2018-10-22] MEDS: LIDODERM TOP SCH (08:24)
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
[2018-10-22] MEDS: ULTRAM PO PRN ×2 (10:46→23:00)
[2018-10-22] MEDS: CRESTOR PO SCH (21:26)
[2018-10-22] MEDS: ZYPREXA PO SCH (21:27)
[2018-10-22] MEDS: NORVASC PO SCH (21:27)
[2018-10-23] MEDS: XANAX PO PRN ×3 (01:12→21:59)
[2018-10-23] MEDS: DUONEB (A & A) INH SCH ×5 (05:28→19:25)
[2018-10-23] MEDS: PRILOSEC PO SCH (06:47)
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
[2018-10-23] MEDS: SYMBICORT 160/4.5 MICROGM INHALER INH SCH ×2 (08:07→19:25)
[2018-10-23] MEDS: LOVENOX SUBQ SCH (09:23)
[2018-10-23] MEDS: TOPROL XL PO SCH (09:23)
[2018-10-23] MEDS: IMDUR PO SCH (09:23)
[2018-10-23] MEDS: ULTRAM PO PRN ×2 (09:23→14:49)
[2018-10-23] MEDS: LIDODERM TOP SCH (09:24)
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
--- NOTE | 2018-10-23 20:28 | PULMONOLOGY PROGRESS NOTE ---
DATE: 10/23/2018 SUBJECTIVE: The patient was sleeping upon arrival. He is awake and conversant. He is oriented x2. OBJECTIVE: Vital Signs: The patient has been afebrile for the last 24 hours. Blood pressure 120/75, heart rate 88, respiratory rate 22, oxygen saturation 96% on 2 L per nasal cannula. HEENT: Pupils are equal. Oropharynx appears clear. Neck: Supple. Chest: Faint crackles at the right base. Cardiac: S1, S2. Abdomen: Soft. Extremities: Without edema. LABORATORIES: No new chemistries or CBC. IMPRESSION: A 58-year-old with: 1. Chronic obstructive pulmonary disease. 2. Acute hypoxemic respiratory failure. 3. Pneumonia, status post treatment. 4. Status post surgical fixation of fractures of both lower extremities. 5. Delirium, with improvement. PLAN: 1. Continue bronchial hygiene. 2. Physical therapy as dictated by lower extremity fractures. 3. Encourage smoking cessation. 4. Followup chest x-ray tomorrow. cc: Tristan Waterman MD
[2018-10-23] MEDS: NORVASC PO SCH (21:59)
[2018-10-23] MEDS: ZYPREXA PO SCH (21:59)
[2018-10-23] MEDS: CRESTOR PO SCH (21:59)
[2018-10-24] MEDS: DUONEB (A & A) INH SCH ×7 (00:25→22:32)
[2018-10-24] MEDS: HALDOL IV PRN ×4 (04:49→22:28)
[2018-10-24 06:18] LABS: BASO# 0.04 X1000 (0.0-0.2); BASO% 0.4 % (0.0-0.8); EOS# 0.07 X1000 (0.0-0.7); EOS% 0.8 % (0.0-10.0); HEMATOCRIT 36.4 % (42.0-52.0); HEMOGLOBIN 11.1 g/dL (14.0-18.0); IMM GRAN% 1.1 % (0.0-0.5); LYMPH# 2.19 X1000 (1.2-3.4); LYMPH% 24.2 % (20.5-51.1); MCH 28.5 PG (27-31); MCHC 30.5 g/dL (33-37); MCV 93.3 FL (81-99); MONO# 1.04 X1000 (0.11-0.59); MONO% 11.5 % (1.7-9.3); MPV 11.9 FL (7.4-10.4); PLT 465 X1000 (130-400); RDW 15.9 % (11.5-14.5); WBC 9.04 X1000 (4.8-10.8)
[2018-10-24] MEDS: PRILOSEC PO SCH (06:35)
[2018-10-24 06:38] LABS: AGAP 10; BUN 13 mg/dL (8-22); CALCIUM 9.3 mg/dL (8.8-10.2); CHLORIDE 97 mmol/L (98-107); COSMO 271; CREATININE 0.8 mg/dL (0.7-1.2); ESTIMATED GFR > 60; GLUCOSE 104 mg/dL (70-104); SODIUM 135 mmol/L (136-145); TCO2 28 mmol/L (25-35)
--- NOTE | 2018-10-24 07:05 | Diag Imaging Result Doc PS360 ---
EXAM: CHEST-PORTABLE 10/24/2018 HISTORY: abnormal exam TECHNIQUE: AP portable at 0552 COMMENT: There is increasing opacification in the right lower lobe compared to 10/21/2018. Otherwise are has been no significant change. IMPRESSION: Worsened atelectasis versus pneumonia right lower lobe. Electronically signed by Gonzalez Gonzales 10/24/2018 7:03 AM
[2018-10-24] MEDS: SYMBICORT 160/4.5 MICROGM INHALER INH SCH ×2 (07:35→19:50)
[2018-10-24] MEDS: TOPROL XL PO SCH (08:54)
[2018-10-24] MEDS: ULTRAM PO PRN ×3 (08:54→22:17)
[2018-10-24] MEDS: IMDUR PO SCH (08:54)
[2018-10-24] MEDS: XANAX PO PRN ×2 (08:55→22:17)
[2018-10-24] MEDS: LOVENOX SUBQ SCH (08:55)
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
[2018-10-24] MEDS: CRESTOR PO SCH (22:16)
[2018-10-24] MEDS: ZYPREXA PO SCH (22:16)
[2018-10-24] MEDS: NORVASC PO SCH (22:18)
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
[2018-10-24] MEDS: LIDODERM TOP SCH (22:46)
[2018-10-25] MEDS: DUONEB (A & A) INH SCH ×6 (03:46→23:04)
[2018-10-25] MEDS: PRILOSEC PO SCH (06:04)
[2018-10-25] MEDS: MUCOMYST 20% INH SCH ×2 (08:19→19:59)
[2018-10-25] MEDS: SYMBICORT 160/4.5 MICROGM INHALER INH SCH ×2 (08:19→19:59)
[2018-10-25] MEDS: IMDUR PO SCH (08:45)
[2018-10-25] MEDS: XANAX PO PRN ×2 (08:46→20:30)
[2018-10-25] MEDS: NORVASC PO SCH ×2 (08:46→20:30)
[2018-10-25] MEDS: TOPROL XL PO SCH (08:46)
[2018-10-25] MEDS: ULTRAM PO PRN ×2 (08:47→19:26)
[2018-10-25] MEDS: LOVENOX SUBQ SCH (08:47)
[2018-10-25] MEDS: LIDODERM TOP SCH (08:48)
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
[2018-10-25] MEDS ORDERED: NORCO-5 PO ONE ×2 (12:56→13:20)
[2018-10-25] MEDS: HALDOL IV PRN (20:29)
[2018-10-25] MEDS: CRESTOR PO SCH (20:30)
[2018-10-25] MEDS: ZYPREXA PO SCH (20:30)
--- NOTE | 2018-10-25 23:02 | PULMONOLOGY PROGRESS NOTE ---
DATE: 10/25/2018 SUBJECTIVE: The patient is awake and alert. He reports he is frustrated/agitated because he cannot get out of bed. He has a sitter in his room. OBJECTIVE: The patient has been afebrile for the last 24 hours. Blood pressure 126/81, heart rate 84, respiratory rate 20, oxygen saturation 94% on room air. HEENT: Pupils are equal and reactive. Oropharynx is clear. Neck is supple. Chest reveals occasional rhonchi. Cardiac exam: S1, S2. Abdomen is soft. Extremities reveal postsurgical casts on both lower extremities. LABORATORY DATA: No chemistries or CBC today. IMPRESSION: A 58-year-old with: 1. Chronic obstructive pulmonary disease. 2. Pneumonia, status post treatment. 3. Atelectasis in the right lower lobe. 4. Hypoxemic respiratory failure, with weaning of oxygen. 5. Delirium. 6. Status post surgical fixation on bilateral lower extremity fractures. PLAN: 1. Continue bronchial hygiene. 2. Continue physical therapy as tolerated. 3. Encourage smoking cessation. 4. We will schedule a chest x-ray for tomorrow morning. cc: Tristan Waterman MD
[2018-10-26] MEDS: DUONEB (A & A) INH SCH ×6 (03:57→23:38)
[2018-10-26] MEDS: HALDOL IV PRN ×2 (04:48→20:58)
--- NOTE | 2018-10-26 06:29 | Diag Imaging Result Doc PS360 ---
CHEST-PORTABLE - 10/26/2018 INDICATION: abnormal exam COMPARISON: 10/24/2018 FINDINGS: Lung volumes are much improved. There is decrease in the density of the small focal airspace opacity at the right hilum and right lung base. No new infiltrates. No pneumothorax or pleural effusion. Stable borderline heart size. IMPRESSION: Improved lung volumes. Improved aeration of the right lung. Electronically signed by Bran Lujan 10/26/2018 6:27 AM
[2018-10-26] MEDS: PRILOSEC PO SCH (06:39)
[2018-10-26] MEDS: ULTRAM PO PRN ×3 (06:39→18:30)
[2018-10-26 06:47] LABS: BASO# 0.04 X1000 (0.0-0.2); BASO% 0.5 % (0.0-0.8); EOS# 0.18 X1000 (0.0-0.7); EOS% 2.2 % (0.0-10.0); HEMATOCRIT 39.1 % (42.0-52.0); HEMOGLOBIN 11.9 g/dL (14.0-18.0); IMM GRAN# 0.07 X1000 (0.0-0.04); IMM GRAN% 0.9 % (0.0-0.5); LYMPH# 2.92 X1000 (1.2-3.4); MCH 28.5 PG (27-31); MCHC 30.4 g/dL (33-37); MCV 93.8 FL (81-99); MONO% 13.6 % (1.7-9.3); NEUT# 3.79 X1000 (1.4-6.5); NEUT% 46.8 % (42.2-75.2); PLT 447 X1000 (130-400); RBC 4.17 XMIL (4.7-6.1); RDW 15.6 % (11.5-14.5)
[2018-10-26 07:03] LABS: AGAP 13; BUN 18 mg/dL (8-22); CALCIUM 9.3 mg/dL (8.8-10.2); CHLORIDE 95 mmol/L (98-107); COSMO 272; CREATININE 0.8 mg/dL (0.7-1.2); ESTIMATED GFR > 60; GLUCOSE 100 mg/dL (70-104); POTASSIUM 3.8 mmol/L (3.5-5.1); SODIUM 135 mmol/L (136-145); TCO2 27 mmol/L (25-35)
--- NOTE | 2018-10-26 07:53 | ORTHOPAEDICS PROGRESS NOTE ---
DATE: 10/26/2018 SUBJECTIVE: Mr. Nichols is lying in bed this morning. He is actually resting a lot and does not really want to wake up. OBJECTIVE: Bilateral lower extremity exam: Both legs are in bilateral splints. The splints still appear to be in good condition. Not a lot of swelling to his toes. He has good capillary refill to all the toes. ASSESSMENT: Status post right tibia intramedullary nail and bilateral ankle open reduction and internal fixation. PLAN: From an Orthopedic standpoint, Mr. Nichols is still nonweightbearing until about 4 weeks after surgery. At that point, we will probably be able to get him up on both sides at least doing some weightbearing. Orthopedics is around. If he is discharged, I would like to see him in clinic in a week. cc: Jose Francisco Mccain MD
[2018-10-26] MEDS: SYMBICORT 160/4.5 MICROGM INHALER INH SCH ×2 (08:02→20:20)
[2018-10-26] MEDS: MUCOMYST 20% INH SCH ×2 (08:03→20:17)
[2018-10-26] MEDS: LIDODERM TOP SCH (08:58)
[2018-10-26] MEDS: TOPROL XL PO SCH (08:59)
[2018-10-26] MEDS: LOVENOX SUBQ SCH (08:59)
[2018-10-26] MEDS: IMDUR PO SCH (08:59)
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
[2018-10-26] MEDS: XANAX PO PRN ×2 (12:16→20:25)
[2018-10-26] MEDS: CRESTOR PO SCH (20:25)
[2018-10-26] MEDS: NORVASC PO SCH (20:25)
[2018-10-26] MEDS: ZYPREXA PO SCH (20:25)
[2018-10-26] MEDS: TYLENOL PO PRN (22:08)
[2018-10-27] MEDS: ULTRAM PO PRN ×4 (01:35→23:37)
[2018-10-27] MEDS: DUONEB (A & A) INH SCH ×6 (03:31→23:17)
[2018-10-27] MEDS: MUCOMYST 20% INH SCH ×2 (07:29→19:38)
[2018-10-27] MEDS: SYMBICORT 160/4.5 MICROGM INHALER INH SCH ×2 (07:30→19:39)
[2018-10-27] MEDS: LIDODERM TOP SCH (08:50)
[2018-10-27] MEDS: IMDUR PO SCH (08:50)
[2018-10-27] MEDS: PRILOSEC PO SCH (08:50)
[2018-10-27] MEDS: LOVENOX SUBQ SCH (08:50)
[2018-10-27] MEDS: TOPROL XL PO SCH (08:50)
[2018-10-27] MEDS: NORCO-10 PO PRN ×2 (12:48→21:46)
--- NOTE | 2018-10-27 15:58 | PROGRESS NOTE ---
DATE: 10/27/2018 HISTORY: Today Mr. Nichols refers to be doing okay. Denies any home side or suicidal ideation. There was a 1 to 1 observation in the room with him. PHYSICAL EXAMINATION: Current vital signs: Blood pressure is 109/66, pulse of 192, respirations 16, temperature 98.9 degrees. general: Mr. Nichols is a 58-year-old gentleman. He is in bed in no distress. heent: Mucosa is pink and moist. Anicteric. Acyanotic. Neck: Neck is supple. chest: Chest was clear to auscultation. Cardiovascular: Regular rate and rhythm. abdomen: Abdomen is soft. Extremities: The patient has bilateral orthopedic splints in lower extremities. ASSESSMENT: 1. Bilateral ankle fractures and right midshaft tibia fracture status post right tibia intramedullary nailing and open reduction internal fixation of bilateral ankle fractures. The patient is nonweightbearing for at least a month and will follow up with Orthopedics when stable for discharge. 2. History of schizophrenia with some intermittent ideation of some homicidal tendencies. The patient has been evaluated twice by Marissa George, the last being yesterday, and there is still a recommendation to get him in inpatient psych unit. 3. Acute hypoxemic respiratory failure, improved. 4. Multifocal pneumonia, resolved. 5. Hypertension, controlled. 6. Acute kidney injury on presentation, resolved. In general, I think Mr. Nichols is doing fairly okay from medical standpoint. We are still pending final disposition plan for him. cc: Chris Perez MD
[2018-10-27] MEDS: NORVASC PO SCH (21:45)
[2018-10-27] MEDS: XANAX PO PRN (21:45)
[2018-10-27] MEDS: CRESTOR PO SCH (21:45)
[2018-10-27] MEDS: ZYPREXA PO SCH (21:45)
[2018-10-27] MEDS: HALDOL IM PRN (21:52)
[2018-10-28] MEDS: DUONEB (A & A) INH SCH ×6 (03:37→22:52)
[2018-10-28] MEDS: HALDOL IM PRN (03:58)
[2018-10-28] MEDS: PRILOSEC PO SCH (07:03)
--- NOTE | 2018-10-28 07:14 | Diag Imaging Result Doc PS360 ---
EXAM: CHEST-1 VIEW 10/28/2018 HISTORY: SOB TECHNIQUE: AP portable upright at 0700 COMMENT: The inspiration is slightly less optimal than on 10/26/2018. Otherwise, there has been no significant change. There is still some minimal platelike atelectasis over the right base. IMPRESSION: Stable chest. Electronically signed by Gonzalez Gonzales 10/28/2018 7:11 AM
[2018-10-28] MEDS: MUCOMYST 20% INH SCH ×2 (07:34→19:31)
[2018-10-28] MEDS: SYMBICORT 160/4.5 MICROGM INHALER INH SCH ×2 (07:34→19:32)
[2018-10-28] MEDS: NORCO-10 PO PRN ×2 (07:54→20:28)
[2018-10-28] MEDS: LOVENOX SUBQ SCH (07:55)
[2018-10-28] MEDS: TOPROL XL PO SCH (08:00)
[2018-10-28] MEDS: LIDODERM TOP SCH (08:00)
[2018-10-28] MEDS: IMDUR PO SCH (08:00)
--- NOTE | 2018-10-28 12:33 | PROGRESS NOTE ---
DATE: 10/28/2018 SUBJECTIVE: This morning, Mr. Nichols refers to be doing well. Denies any homicidal or suicidal ideations. OBJECTIVE: Vital Signs: Blood pressure is 129/67, pulse of 84, respirations are 18, temperature 97.8 degrees. General Examination: Mr. Nichols is a 58-year-old, gentleman. He was in bed. No distress. HEENT: Mucosa is pink and moist. Anicteric. Acyanotic. Neck: Supple. Chest: Clear to auscultation. No crepitations. No rhonchi. Cardiovascular: Regular rate and rhythm. GI: Abdomen is soft, nontender. Bowel sounds present. Extremities: Both lower extremities are in orthopedic splints. Psychiatric: No hallucinations or delusions nor suicidal or homicidal ideations. No lab work for this morning. ASSESSMENT: 1. Bilateral ankle fractures and right midshaft tibia fracture, status post right tibia intramedullary nailing and open reduction and internal fixation of bilateral ankle fractures. The patient is doing well. Orthopedics is on board. There is a plan to follow him up outpatient. He is supposed to be nonweightbearing at least for 1 month. 2. History of schizophrenia with intermittent homicidal and suicidal ideations. The patient was evaluated by Marissa George on two occasions. At this point, the patient does not seems to have any more homicidal or suicidal ideations. 3. Acute hypoxemic respiratory failure, improved. 4. Multifocal pneumonia, resolved. 5. Hypertension, controlled. 6. Acute kidney injury on presentation, resolved. PLAN: In general, I think Mr. Nichols is clinically stable. His initial orthopedic injuries have all been taken care of. He was having issues with psychosis, which he seems to be much better now. We will be reaching out to the family to see if they would come and make paperwork for his discharge either home or to rehab, depending on the availability. cc: Chris Perez MD
[2018-10-28] MEDS: ULTRAM PO PRN (14:57)
[2018-10-28] MEDS: XANAX PO PRN (20:28)
[2018-10-28] MEDS: CRESTOR PO SCH (20:28)
[2018-10-28] MEDS: NORVASC PO SCH (20:28)
[2018-10-28] MEDS: ZYPREXA PO SCH (20:29)
[2018-10-29] MEDS: TYLENOL PO PRN (01:11)
[2018-10-29] MEDS: ULTRAM PO PRN (01:11)
[2018-10-29] MEDS: DUONEB (A & A) INH SCH ×3 (03:10→12:25)
[2018-10-29 06:30] LABS: BASO# 0.03 X1000 (0.0-0.2); BASO% 0.4 % (0.0-0.8); EOS# 0.27 X1000 (0.0-0.7); HEMATOCRIT 34.9 % (42.0-52.0); HEMOGLOBIN 10.7 g/dL (14.0-18.0); IMM GRAN# 0.04 X1000 (0.0-0.04); IMM GRAN% 0.6 % (0.0-0.5); LYMPH# 2.23 X1000 (1.2-3.4); LYMPH% 33.3 % (20.5-51.1); MCH 28.8 PG (27-31); MCHC 30.7 g/dL (33-37); MCV 94.1 FL (81-99); MONO# 0.88 X1000 (0.11-0.59); MONO% 13.1 % (1.7-9.3); NEUT# 3.25 X1000 (1.4-6.5); NEUT% 48.6 % (42.2-75.2); PLT 264 X1000 (130-400); RBC 3.71 XMIL (4.7-6.1); RDW 15.5 % (11.5-14.5)
[2018-10-29 06:47] LABS: AGAP 12; BUN 13 mg/dL (8-22); CALCIUM 8.6 mg/dL (8.8-10.2); CHLORIDE 100 mmol/L (98-107); COSMO 273; CREATININE 0.7 mg/dL (0.7-1.2); ESTIMATED GFR > 60; GLUCOSE 110 mg/dL (70-104); POTASSIUM 4.2 mmol/L (3.5-5.1); SODIUM 136 mmol/L (136-145); TCO2 24 mmol/L (25-35)
[2018-10-29] MEDS: PRILOSEC PO SCH (07:23)
[2018-10-29] MEDS: NORCO-10 PO PRN (07:23)
[2018-10-29] MEDS: SYMBICORT 160/4.5 MICROGM INHALER INH SCH (08:24)
[2018-10-29] MEDS: MUCOMYST 20% INH SCH (08:24)
[2018-10-29] MEDS: LOVENOX SUBQ SCH (08:53)
[2018-10-29] MEDS: LIDODERM TOP SCH (08:53)
[2018-10-29] MEDS: TOPROL XL PO SCH (08:54)
[2018-10-29] MEDS: IMDUR PO SCH (08:54)
[2018-10-29 11:32] VITALS: BP 135/59
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
== END 2018-10-29 15:42 | disposition home health service (06) | DRG 492 ==
LOC: ED 01:21 → EDIPHOLD 09:55 → SUATTDRO 09:55 → ICU 15:03 → 3S 10-19 22:39 → 4N 10-23 12:53
PROVIDERS: ATTEND Internal Medicine
CPT/HCPCS: 51702; 70450; 71010; 71045; 71260; 71275; 72125; 73030; 73070; 73080; 73590; 73610; 74177; 76000; 80048; 80053; 80101; 80202; 80301; 80307; 80320; 80324; 80345; 80346; 80353; 80358; 80361; 80365; 81001; 82055; 82140; 82550; 82553; 82728; 82805; 82948; 83540; 83550; 83605; 83735; 83874; 83992; 84100; 84134; 84484; 85018; 85025; 85045; 85610; 85730; 86850; 86900; 86901; 87040; 87070; 87088; 87205; 93005; 93010; 94003; 94640; 94660; 94761; 94799; 96361; 96365; 96366; 96367; 96375; 97110; 97162; 97530; 99285; 99291; A9270; G0431; G0434; G0479; G0480; G6040; J0131; J0690; J0692; J1170; J1630; J1644; J1650; J1815; J1940; J1956; J2060; J2250; J2270; J2405; J3010; J3370; J3480; J3486; J7030; J7040; J7050; Q9967; XXXXX

== ENCOUNTER 2018-10-31 18:58 | Inpatient (IN) ==
[2018-10-31] MEDS ORDERED: DUONEB (A & A) INH ONE (19:19)
[2018-10-31] MEDS ORDERED: CLINDAMYCIN 900 MG/NS 900 MG/50 ML IVPB IV ONE (19:19)
[2018-10-31] MEDS ORDERED: VANCOMYCIN 1 GM/NS 1 GM/250 ML IVPB IV ONE (19:19)
[2018-10-31] MEDS ORDERED: NS 1,000 ML IV ONE ×3 (19:19→19:20)
[2018-10-31] MEDS ORDERED: LEVAQUIN 750 MG/D5W 750 MG/150 ML IVPB IV ONE (19:19)
[2018-10-31] MEDS ORDERED: STERILE WATER INJ. INJ ONE (19:35)
[2018-10-31] MEDS ORDERED: GEODON IM ONE (19:35)
[2018-10-31] MEDS ORDERED: ATIVAN IV ONE ×2 (19:35→20:43)
[2018-10-31] MEDS ORDERED: BENADRYL IV ONE ×2 (19:35→20:43)
[2018-10-31 19:51] LABS: ALLEN TEST YES; BLOOD TYPE ARTERIAL; HCO3-(ACT) 27.1 mmoll (20.0-26.0); METHB 1.4 % (0.0-1.5); O2(CT) 15.6 mL/dL (15.0-23.0); PCO2(98.6) 30 mmHg (35-45); PO2(98.6) 60 mmHg (60-100); SAMPLE BLOOD; SAO2 94.5 % (95.0-100.0); THB 12.2 g/dL (11.5-17.4); pH(98.6) 7.53 (7.35-7.45)
[2018-10-31 19:52] LABS: MODALITY ROOM AIR
[2018-10-31 20:20] LABS: BASO# 0.02 X1000 (0.0-0.2); BASO% 0.1 % (0.0-0.8); EOS# 0.04 X1000 (0.0-0.7); EOS% 0.2 % (0.0-10.0); HEMOGLOBIN 13.4 g/dL (14.0-18.0); IMM GRAN# 0.08 X1000 (0.0-0.04); IMM GRAN% 0.4 % (0.0-0.5); LYMPH# 2.12 X1000 (1.2-3.4); MCH 29.1 PG (27-31); MCHC 31.9 g/dL (33-37); MCV 91.1 FL (81-99); MONO# 2.07 X1000 (0.11-0.59); MONO% 10.7 % (1.7-9.3); MPV 12.3 FL (7.4-10.4); NEUT# 14.99 X1000 (1.4-6.5); NEUT% 77.6 % (42.2-75.2); PLT 281 X1000 (130-400); RBC 4.61 XMIL (4.7-6.1); RDW 15.7 % (11.5-14.5); WBC 19.32 X1000 (4.8-10.8)
[2018-10-31 20:40] LABS: AGAP 15; ALB/GLOB RATIO 1.3; ALBUMIN 4.3 g/dL (3.5-5.0); ALKALINE PHOSPHATASE 214 U/L (32-122); BUN 10 mg/dL (8-22); CALCIUM 10.1 mg/dL (8.8-10.2); CHLORIDE 99 mmol/L (98-107); CK PROFILE 52 U/L (24-204); COSMO 281; CREATININE 0.9 mg/dL (0.7-1.2); ESTIMATED GFR > 60; GLUCOSE 148 mg/dL (70-104); GOT 23 U/L (10-34); GPT 16 U/L (10-44); MAGNESIUM 1.6 mg/dL (1.5-2.7); POTASSIUM 4.2 mmol/L (3.5-5.1); SODIUM 140 mmol/L (136-145); TCO2 26 mmol/L (25-35); TOTAL PROTEIN 7.7 g/dL (6.3-8.3)
[2018-10-31 20:43] LABS: PTT 28.7 Seconds (22.3-41.8)
[2018-10-31 20:44] LABS: INR 1.07
[2018-10-31 20:49] LABS: URINE SOURCE CATH
[2018-10-31 20:51] LABS: BILIRUBIN URINE NEGATIVE (NEGATIVE); BLOOD URINE TRACE (NEGATIVE); COLOR YELLOW; GLUCOSE URINE NEGATIVE (NEGATIVE); KETONE URINE NEGATIVE (NEGATIVE); LEUKOCYTES URINE MODERATE (NEGATIVE); NITRITE URINE POSITIVE (NEGATIVE); PROTEIN URINE TRACE mg/dL (NEGATIVE); SP GRAVITY URINE 1.017; TURBIDITY URINE HAZY (CLEAR); UR EPITHELIAL CELLS <10 /HPF (<10); URINE BACTERIA 4+ /HPF; URINE RBC <10 /HPF (<10); URINE WBC TNTC /HPF (<10); UROBILINOGEN URINE 2 mg/dL (NORMAL)
--- NOTE | 2018-10-31 21:32 | PROVIDER DOCUMENTATION ---
This chart was entered by Lindsay Hawkins Scribe, acting as scribe for Tacos Farfan MD. HPI-Fever - General Chief Complaint: Extremity Pain Stated Complaint: FOOT INJURY Time Seen by Provider: 10/31/18 19:07 Source: patient, family Unable to obtain history due to:: altered Allergies/Adverse Reactions: Patient Allergies Allergy/AdvReac Type Severity Reaction Status Date / Time quetiapine [From Seroquel] Allergy Mild Unknown Verified 10/08/18 01:23 acetaminophen Allergy FLUSHING Verified 10/08/18 01:23 [From Darvocet-N] codeine Allergy ABDOMINAL Verified 10/08/18 01:23 PAIN Penicillins Allergy Unknown Verified 10/08/18 01:23 propoxyphene napsylate * Allergy FLUSHING Verified 10/08/18 01:23 [From Darvocet-N] ketorolac tromethamine * AdvReac NAUSEA Verified 10/08/18 01:23 [From Toradol] naproxen AdvReac Unknown Verified 10/08/18 01:23 tramadol HCl * [From Ultram] AdvReac NAUSEA Verified 10/08/18 01:23 Home Medications: Home Medication List Medication Instructions Recorded Confirmed Last Taken Type Amlodipine [Norvasc] 5 mg PO QHS 10/08/17 10/08/18 Unknown History Hydrocodone/Acetaminophen [[place] 1 each PO Q8H PRN 10/08/17 10/08/18 Unknown History 10-325 Tablet] Isosorbide Mononitrate E.r. [Imdur] 30 mg PO DAILY 10/08/17 10/08/18 Unknown History Lisinopril 20 mg PO BID 10/08/17 10/08/18 Unknown History Omeprazole [Prilosec] 40 mg PO QHS 10/08/17 10/08/18 Unknown History ROSUVAstatin [Crestor] 10 mg PO QHS 10/08/17 10/08/18 Unknown History Albuterol Sulfate Inhaler 1 - 2 puff INH Q6H PRN 10/08/18 10/08/18 Unknown History [Ventolin Hfa] Alprazolam 2 mg PO BID 10/08/18 10/08/18 Unknown History Budesonide/Formoterol Inhaler 2 puff INH BID 10/08/18 10/08/18 Unknown History [Symbicort 160/4.5 Microgm Inhaler] Metoprolol Succinate E.r. [Toprol 100 mg PO DAILY 10/08/18 10/08/18 Unknown History Xl] Hydrocodone/APAP 10 mg/325 mg 1 ea PO Q8H PRN PRN #20 tab 10/29/18 Unknown Rx [[place]-10] Olanzapine [Zyprexa] 10 mg PO Q24H #30 tab 10/29/18 Unknown Rx Omeprazole [Prilosec] 40 mg PO DAILY@0700 #30 cap 10/29/18 Unknown Rx - History of Present Illness-Fever Nature of Presenting Problem: pt is a 58 yr old male presenting with daughter in law. pt agitated and mumbling throughout exam, difficulty understanding pt, per DIL pt was discharged from this facility 2 days ago, came to her house and has been very confused, having multiple falls, mumbling and agitated since arrival. DIL unsure how pt got to her house or who picked pt up from hospital. pt does admit chills but does not answer any other questions. Fever Severity/Quality: reports: no fever Onset/Duration: reports: gradual Timing: reports: getting worse Severity: reports: moderate Context: reports: decreased mental status, confusion Recent Illness?: reports: other (recent 3 week hospital admission, discharged 2 days ago) Fever Therapy [employer]: Initiated none Cognitive Baseline: alert, oriented x3 Modifying Factors: improves with: nothing Associated Symptoms: reports: fever/chills Recently seen or treated by another doctor?: Yes (discharged from this facility 2 days ago) - Glascow Coma Score Best Eye Response (Dariana): (4) open spontaneously Best Verbal Response (Dariana): (2) incomprehsible sounds Best Motor Response (Cut Off): (6) obeys commands Review of Systems - Adult - REVIEW OF SYSTEMS - ADULT ROS:: limited per condition Constitutional: reports: see HPI Eyes: reports: no symptoms reported Ears, Nose, Mouth & Throat: reports: no symptoms reported Cardiovascular: reports: no symptoms reported Respiratory: reports: no symptoms reported Gastrointestinal: reports: no symptoms reported Genitourinary: reports: no symptoms reported Musculoskeletal: reports: see HPI, muscle weakness Integumentary: reports: no symptoms reported Neurological: reports: see HPI, loss of balance Past History - Adult - PAST MEDICAL HISTORY-ADULT Review of Records: reports: Old Records Reviewed, Nursing Assessment Review, Medications Reviewed, Social history reviewed & non-contributory. Major Childhood Illnesses: reports: denies history Cardiovascular: reports: HTN, hyperlipidemia, [place] (2004) Respiratory: reports: denies history Gastrointestinal: reports: GERD Obstetrical/Gynecological: reports: denies history Genitourinary: reports: denies history Musculoskeletal: reports: denies history Neurological: reports: denies history Psychiatric: reports: anxiety Endocrine/Immune: reports: Diabetes Other Conditions: reports: other (back problems) - PRIOR SURGERIES/PROCEDURES Surgical/Procedure History: reports: CABG, back/neck, other (facial repair and back repair) - IMMUNIZATION STATUS Childhood Immunizations: See Nurse Assessment Flu Vaccine: See Nurse Assessment - FAMILY HISTORY Family History: reviewed, not pertinent - SOCIAL HISTORY Smoking: cigarettes Living Situation: family (DIL) Physical Exam-General - PHYSICAL EXAM-ADULT Initial Vital Signs Reviewed: Yes - CONSTITUTIONAL General Appearance: slow to respond (tremulous, agitated, slow response and slow to follow commands), other - EYES Eyes: PERRL/EOMI - HEAD, EARS, NOSE, MOUTH & THROAT HENMT: negative: moist mucous membranes (dry oral mucosa) - NECK Neck: non-tender, full range of motion, supple, normal inspection - RESPIRATORY Respiratory: wheezing (expiritory wheezes), increased rate - CARDIOVASCULAR Cardiovascular: normal peripheral pulses, tachycardia (144) - GASTROINTESTINAL (ABDOMEN) Abdominal Exam: normal bowel sounds, non tender, soft - LYMPHATIC Lymphatic: no adenopathy - MUSCULOSKELETAL Back Exam: normal inspection Extremity: normal range of motion, other (right knee erythema noted at staple line. right distal lower leg ecchymosis. right medial ankle staple repair with erythema and warmth noted. left medial ankle eschar 6x2cm. left medial and lateral ankle erythema, warmth, scabbing and cellulitis noted) Peripheral Pulses: radial (R): 2+, radial (L): 2+, dorsalis-pedis (R): 2+, dorsalis-pedis (L): 2+ - SKIN Integumentary: normal color, normal turgor, warm/dry, other (right knee erythema noted at staple line. right distal lower leg ecchymosis. right medial ankle staple repair with erythema and warmth noted. left medial ankle eschar 6x2cm. left medial and lateral ankle erythema, warmth, scabbing and cellulitis noted) - PSYCHIATRIC Psych/Mental Status: disoriented x 3, other (agitated, mumbling, confused) Progress - PLAN OF CARE/RESULTS Progress/Plan/Lab Results: Vital Signs - 8 hr 10/31/18 19:01 Temperature 97.8 F Pulse Rate 101 H Respiratory Rate 20 Blood Pressure 143/95 O2 Sat by Pulse Oximetry 100 Laboratory Results - last 24 hr 10/31/18 10/31/18 10/31/18 19:40 19:40 19:40 WBC 19.32 H RBC 4.61 L Hgb 13.4 L Hct 42.0 MCV 91.1 MCH 29.1 MCHC 31.9 L RDW Std Deviation 15.7 H Plt Count 281 MPV 12.3 H Immature Gran % (Auto) 0.4 Neut % (Auto) 77.6 H Lymph % (Auto) 11.0 L Grand % (Auto) 10.7 H Eos % (Auto) 0.2 Baso % (Auto) 0.1 Immature Gran # (Auto) 0.08 H Neut # (Auto) 14.99 H Lymph # (Auto) 2.12 Grand # (Auto) 2.07 H Eos # (Auto) 0.04 Baso # (Auto) 0.02 PT 14.0 INR 1.07 PTT (Actin FS) 28.7 Specimen Type Sample Site pH pCO2 pO2 HCO3 Base Excess Oxyhemoglobin ABG O2 Sat (Calculated) ABG O2 Saturation ABG Carboxyhemoglobin ABG Methemoglobin Sage Test A-a O2 Difference Total Hemoglobin Lactate Blood Gas Modality FiO2 % Sodium 140 Potassium 4.2 Chloride 99 Carbon Dioxide 26 Anion Gap 15 BUN 10 Creatinine 0.9 Estimated GFR/1.73 m2 > 60 BUN/Creatinine Ratio 11 Glucose 148 H Calculated Osmolality 281 Calcium 10.1 Magnesium 1.6 Total Bilirubin 1.10 H AST 23 ALT 16 Alkaline Phosphatase 214 H Creatine Kinase 52 Troponin T Total Protein 7.7 Albumin 4.3 Globulin 3.4 Albumin/Globulin Ratio 1.3 Plasma Lactate Urine Source Urine Color Urine Turbidity Urine pH Ur Specific [place] Urine Protein Ur Glucose (Stick) Ur Ketones (Stick) Urine Blood Urine Nitrite Urine Bilirubin Urobilinogen Dipstick Urine Leukocytes Urine WBC (Auto) Urine RBC (Auto) U Epithel Cells (Auto) Urine Bacteria (Auto) 07/10/31/18 10/31/18 19:40 19:40 19:42 WBC RBC Hgb Hct MCV MCH MCHC RDW Std Deviation Plt Count MPV Immature Gran % (Auto) Neut % (Auto) Lymph % (Auto) Grand % (Auto) Eos % (Auto) Baso % (Auto) Immature Gran # (Auto) Neut # (Auto) Lymph # (Auto) Grand # (Auto) Eos # (Auto) Baso # (Auto) PT INR PTT (Actin FS) Specimen Type ARTERIAL Sample Site L RADIAL pH 7.53 H pCO2 30 L pO2 60 HCO3 27.1 H Base Excess 3.0 Oxyhemoglobin 91.0 L ABG O2 Sat (Calculated) 15.6 ABG O2 Saturation 94.5 L ABG Carboxyhemoglobin 2.40 ABG Methemoglobin 1.4 Sage Test YES A-a O2 Difference 52.0 Total Hemoglobin 12.2 Lactate 1.30 Blood Gas Modality ROOM AIR FiO2 % 21.0 Sodium Potassium Chloride Carbon Dioxide Anion Gap BUN Creatinine Estimated GFR/1.73 m2 BUN/Creatinine Ratio Glucose Calculated Osmolality Calcium Magnesium Total Bilirubin AST ALT Alkaline Phosphatase Creatine Kinase Troponin T < 0.010 Total Protein Albumin Globulin Albumin/Globulin Ratio Plasma Lactate 1.9 Urine Source Urine Color Urine Turbidity Urine pH Ur Specific [place] Urine Protein Ur Glucose (Stick) Ur Ketones (Stick) Urine Blood Urine Nitrite Urine Bilirubin Urobilinogen Dipstick Urine Leukocytes Urine WBC (Auto) Urine RBC (Auto) U Epithel Cells (Auto) Urine Bacteria (Auto) 10/31/18 20:30 WBC RBC Hgb Hct MCV MCH MCHC RDW Std Deviation Plt Count MPV Immature Gran % (Auto) Neut % (Auto) Lymph % (Auto) Grand % (Auto) Eos % (Auto) Baso % (Auto) Immature Gran # (Auto) Neut # (Auto) Lymph # (Auto) Grand # (Auto) Eos # (Auto) Baso # (Auto) PT INR PTT (Actin FS) Specimen Type Sample Site pH pCO2 pO2 HCO3 Base Excess Oxyhemoglobin ABG O2 Sat (Calculated) ABG O2 Saturation ABG Carboxyhemoglobin ABG Methemoglobin Sage Test A-a O2 Difference Total Hemoglobin Lactate Blood Gas Modality FiO2 % Sodium Potassium Chloride Carbon Dioxide Anion Gap BUN Creatinine Estimated GFR/1.73 m2 BUN/Creatinine Ratio Glucose Calculated Osmolality Calcium Magnesium Total Bilirubin AST ALT Alkaline Phosphatase Creatine Kinase Troponin T Total Protein Albumin Globulin Albumin/Globulin Ratio Plasma Lactate Urine Source CATH Urine Color YELLOW Urine Turbidity HAZY Urine pH 8.0 Ur Specific [place] 1.017 Urine Protein TRACE A Ur Glucose (Stick) NEGATIVE Ur Ketones (Stick) NEGATIVE Urine Blood TRACE A Urine Nitrite POSITIVE A Urine Bilirubin NEGATIVE Urobilinogen Dipstick 2 A Urine Leukocytes MODERATE A Urine WBC (Auto) TNTC A Urine RBC (Auto) <10 U Epithel Cells (Auto) <10 Urine Bacteria (Auto) 4+ Orders Category Date Time Status Cardiac Monitoring DIRECTED Care 10/31/18 19:18 Active IV Insertion ORDERED Care 10/31/18 19:18 Completed CHEST-1 VIEW [RAD] Stat Exams 10/31/18 19:18 Taken ABG [RESP] Routine Lab 10/31/18 19:42 Completed BLOOD CULTURE [BLDCUL] Stat Lab 10/31/18 20:30 Results CBC WITH DIFF [HEME] Stat Lab 10/31/18 19:40 Completed CK PROFILE [SP CHEM] Stat Lab 10/31/18 19:40 Completed COMPREHENSIVE METABOLIC PANEL [CHEM] Stat Lab 10/31/18 19:40 Completed LACTATE, PLASMA [CHEM] Lab 10/31/18 22:30 Uncollected LACTATE, PLASMA [CHEM] Lab 11/01/18 01:30 Uncollected LACTATE, PLASMA [CHEM] Q3H Lab 10/31/18 19:40 Completed MAGNESIUM [CHEM] Stat Lab 10/31/18 19:40 Completed PROTIME WITH INR [COAG] Stat Lab 10/31/18 19:40 Completed PTT [COAG] Stat Lab 10/31/18 19:40 Completed ROUTINE CULTURE [RM] Routine Lab 10/31/18 20:14 Received TROPONIN T Stat Lab 10/31/18 19:40 Completed URINALYSIS W/POSS RFLX CULT [URINALYSIS] Stat Lab 10/31/18 20:30 Completed URINE CULTURE [RM] Routine Lab 10/31/18 20:55 Received 0.9% Sodium Chloride Inj [Ns] 1,000 ml Med 10/31/18 19:19 Discontinued IV 999 mls/hr 0.9% Sodium Chloride Inj [Ns] 1,000 ml Med 10/31/18 19:20 Discontinued IV 999 mls/hr 0.9% Sodium Chloride Inj [Ns] 1,000 ml Med 10/31/18 19:20 Discontinued IV 999 mls/hr Albuterol 2.5MG/Ipratrop 0.5MG [Duoneb (A & A)] Med 10/31/18 19:19 Discontinued 9 ml INH NOW ONE Clindamycin 900 mg/Ns Med 10/31/18 19:19 Discontinued 900 mg in 50 ml IV NOW Diphenhydramine [Benadryl] Med 10/31/18 19:35 Discontinued 25 mg IV NOW ONE Diphenhydramine [Benadryl] Med 10/31/18 20:43 Discontinued 25 mg IV NOW ONE Levofloxacin 750 mg/D5w [Levaquin 750 mg/D5w] Med 10/31/18 19:19 Discontinued 750 mg in 150 ml IV NOW Lorazepam [Ativan] Med 10/31/18 19:35 Discontinued 1 mg IV NOW ONE Lorazepam [Ativan] Med 10/31/18 20:43 Discontinued 1 mg IV NOW ONE Vancomycin 1 gm/Ns Med 10/31/18 19:19 Discontinued 1 gm in 250 ml IV NOW Water, Sterile Inj [Sterile Water Inj] Med 10/31/18 19:35 Discontinued 1.2 ml INJ NOW ONE Ziprasidone [Geodon] Med 10/31/18 19:35 Discontinued 20 mg IM NOW ONE Aerosol Treatments Routine Oth 10/31/18 19:20 Active Aerosol Treatments Stat Oth 10/31/18 19:20 Active Oxygen Device Stat Oth 10/31/18 19:18 Active EKG [EKG] Stat Ther 10/31/18 19:22 Ordered Result Diagrams: 10/31/18 19:40 10/31/18 19:40 - REASSESSMENT Reassessment #1 Time Reassessed: 20:40 (pt remains agitated and uncooperative, unable to c omplete labs or EKG due to pt agitation, will give Geodon, Ativan and Benedryl ) Status: unchanged - EKG 1 Time of EKG reading by physician:: 21:00 EKG Read and Signed by:: Tacos Farfan EKG Interpretation (*Must complete 3 of following elements*): Abnormal (extreme sinus tachycardia, OIWMI) Rate: 149 Rhythm: sinsu tachycardia Prior EKG Comparison: unchanged from prior (10/08/18-unchanged except for elevated HR) - XRAY 1 XRAY Study: Chest Impression: Abnormal (atelectisis right base, no obvious infiltrates) XRAY Interpretation: Dr Farfan - CONSULTS/PCP/HOSPITALIST Notification #1 *Consult/PCP/Hospitalist*: Dr Hudson Time Discussed: 21:20 Reason/Comments: discussed paln of care for pt admit-admit accepted Consult Disposition: Admit Departure - Departure Date of Disposition Decision: 10/31/18 Time of Disposition Decision: 21:28 DIAGNOSIS: Severe sepsis with acute organ dysfunction, Cellulitis of left ankle, Sinus tachycardia Altered mental status Qualifiers: Altered mental status type: stupor Qualified Code(s): R40.1 - Stupor UTI (urinary tract infection) Qualifiers: Urinary tract infection type: acute cystitis Hematuria presence: with hematuria Qualified Code(s): N30.01 - Acute cystitis with hematuria COPD (chronic obstructive pulmonary disease) with emphysema Qualifiers: Emphysema type: panlobular Qualified Code(s): J43.1 - Panlobular emphysema Disposition: ADMITTED INPATIENT 09 Certified Medical Emergency: Emergent Condition: Critical Referrals and Follow-Ups: None,PCP [Primary Care Provider] - - Critical Care Note This patient required my direct & personal management of CC.: Yes Total Time (mins): 45 Critical Care Statement: This patient required my direct personal management to treat or rule out processes, the absence of which, could potentiallly result in sudden, clinically significant life or limb threatening deterioration. Attestation - Physician/ ADAN Attestation Patient care was provided by Advanced Practice Provider:: No The physician spent face to face time with patient:: Yes Advanced Practice Provider documentation review:: Supervising physician onsite and consulted in the evaluation and care of this patient. The physician did have a face to face encounter with the patient. This chart was documented by the indicated scribe, (Lindsay Hawkins, Nate) and accurately reflects the services I performed and decisions made by me, Tacos Farfan MD, as attested by the provider's signature.
--- NOTE | 2018-10-31 21:37 | Diag Imaging Result Doc PS360 ---
EXAM: CHEST-1 VIEW INDICATION: SOB TECHNIQUE: One view COMPARISON: 10/28/2018 FINDINGS: There is stable elevation of the right hemidiaphragm. Mild atelectasis at the right lung base is stable. No new consolidation is identified. Cardiac silhouette is stable. IMPRESSION: Stable chest. Electronically signed by Axel Morris 10/31/2018 9:35 PM
[2018-10-31 22:09] LABS: UR AMPHETAMINES QUAL NONE DETECTED (NONE DETECT); UR BARBITUATES QUAL NONE DETECTED (NONE DETECT); UR BENZODIAZEPIN QUAL PRESUMPTIVE POSITIVE (NONE DETECT); UR CANNABINOIDS QUAL NONE DETECTED (NONE DETECT); UR COCAINE QUAL NONE DETECTED (NONE DETECT); UR METHADONE QUAL NONE DETECTED (NONE DETECT); UR OPIATES QUAL PRESUMPTIVE POSITIVE (NONE DETECT); UR OXYCODONE QUAL NONE DETECTED (NONE DETECT); UR PCP QUAL NONE DETECTED (NONE DETECT)
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
[2018-10-31] MEDS ORDERED: MAGNESIUM SULFATE 1 GM/D5W 1 GM/100 ML IVPB IV ONE (23:47)
[2018-10-31] MEDS ORDERED: VANCOMYCIN IV PER PHARMACY MISC SCH (23:47)
--- NOTE | 2018-10-31 23:57 | EKG Report ---
Test Performed on : 10/31/2018 8:54:35 PM Test Reason : XO Blood Pressure : / mmHG Vent. Rate : 149 BPM Atrial Rate : 149 BPM P-R Int : 114 ms QRS Dur : 108 ms QT Int : 280 ms P-R-T Axes : 031 -16 025 degrees QTc Int : 441 ms Sinus tachycardia. Inferior infarct (cited on or before 12-SEP-2013) Abnormal ECG When compared with ECG of 16-OCT-2018 07:48, premature ventricular complexes. are no longer present Serial changes of Inferior infarct present Unconfirmed Result
[2018-11-01] MEDS: NS 1,000 ML IV SCH ×2 (00:32→15:47)
[2018-11-01] MEDS ORDERED: VANCOMYCIN 1,300 MG in NS 250 ML IV ONE (01:30)
[2018-11-01 02:25] LABS: ALLEN TEST YES; BE 0.8 mmoll (-3.0-3.0); BLOOD TYPE ARTERIAL; HCO3-(ACT) 25.5 mmoll (20.0-26.0); METHB 1.3 % (0.0-1.5); O2HB 94.8 % (95.0-99.0); PCO2(98.6) 28 mmHg (35-45); PO2(98.6) 78 mmHg (60-100); SAMPLE BLOOD; SAO2 98.2 % (95.0-100.0); THB 11.2 g/dL (11.5-17.4); pH(98.6) 7.52 (7.35-7.45)
[2018-11-01 02:27] LABS: MODALITY CANNULA
[2018-11-01] MEDS ORDERED: ROMAZICON IV ONE (02:29)
[2018-11-01] MEDS: DUONEB (A & A) INH SCH ×8 (03:39→22:46)
[2018-11-01] MEDS: OFIRMEV 1000 MG/ISOTONIC SOLN 1,000 MG/100 ML BOTTLE IV PRN ×2 (04:51→12:00)
[2018-11-01] MEDS ORDERED: LOPRESSOR IV PRN (06:10)
[2018-11-01] MEDS: HUMULIN R SUBQ SCH ×4 (06:15→20:29)
[2018-11-01 06:55] LABS: BASO% 0.1 % (0.0-0.8); HEMATOCRIT 34.5 % (42.0-52.0); HEMOGLOBIN 10.6 g/dL (14.0-18.0); IMM GRAN% 0.6 % (0.0-0.5); LYMPH# 1.17 X1000 (1.2-3.4); LYMPH% 5.5 % (20.5-51.1); MCH 28.3 PG (27-31); MCHC 30.7 g/dL (33-37); MCV 92.2 FL (81-99); MONO# 2.29 X1000 (0.11-0.59); MONO% 10.7 % (1.7-9.3); MPV 11.9 FL (7.4-10.4); NEUT# 17.85 X1000 (1.4-6.5); NEUT% 83.1 % (42.2-75.2); PLT 224 X1000 (130-400); RBC 3.74 XMIL (4.7-6.1); RDW 15.6 % (11.5-14.5); WBC 21.46 X1000 (4.8-10.8)
[2018-11-01 06:56] LABS: BASO# 0.02 X1000 (0.0-0.2); IMM GRAN# 0.13 X1000 (0.0-0.04)
--- NOTE | 2018-11-01 06:56 | Diag Imaging Result Doc PS360 ---
EXAM: CT HEAD W/O CONTRAST 10/31/2018 HISTORY: altered mental status TECHNIQUE: This exam was performed using automated exposure control, adjustment of mA or kV according to patient size, and/or use of iterative reconstruction technique. COMMENT: There is no evidence of mass effect, bleed, or abnormal extra-axial fluid collection. There is a mucous retention cyst in the right maxillary sinus. The calvarium is intact. There are some mastoid air cells which are opacified bilaterally. Compared to the previous study of 10/08/2018, the appearance the brain has not changed significantly. The mastoid effusion was not as severe although there was some fluid on the left previously. IMPRESSION: Bilateral mastoid effusions. No evidence of acute intracranial disease. Electronically signed by Gonzalez Gonzales 11/01/2018 6:54 AM
[2018-11-01 06:59] LABS: AGAP 14; BUN 8 mg/dL (8-22); CALCIUM 8.8 mg/dL (8.8-10.2); CHLORIDE 106 mmol/L (98-107); COSMO 285; CREATININE 0.8 mg/dL (0.7-1.2); ESTIMATED GFR > 60; GLUCOSE 158 mg/dL (70-104); POTASSIUM 3.1 mmol/L (3.5-5.1); SODIUM 142 mmol/L (136-145); TCO2 22 mmol/L (25-35)
[2018-11-01 07:11] LABS: LYMPHS 8 % (21-51); MONO 10 % (1-9); SEGS 80 % (42-75)
[2018-11-01] MEDS ORDERED: HALDOL IV ONE (09:09)
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
[2018-11-01] MEDS: MORPHINE IV PRN ×2 (11:29→23:25)
[2018-11-01] MEDS: HALDOL IV PRN ×2 (12:00→16:50)
[2018-11-01] MEDS ORDERED: ATIVAN IV ONE (12:37)
--- NOTE | 2018-11-01 14:26 | Diag Imaging Result Doc PS360 ---
EXAM: ANKLE COMPLETE RIGHT 11/01/2018 HISTORY: post op ORIF ankle TECHNIQUE: Right ankle three views COMMENT: There is internal fixation of the tibial shaft with an intramedullary fred and both the distal tibia and fibula with bone plates and screws. The alignment of the fracture fragments is improved since the previous study of 10/11/2018. IMPRESSION: Internal fixation of fractures of the mid tibial shaft and both malleoli. Electronically signed by Gonzalez Gonzales 11/01/2018 2:23 PM
--- NOTE | 2018-11-01 14:27 | Diag Imaging Result Doc PS360 ---
EXAM: ANKLE COMPLETE LEFT 11/01/2018 HISTORY: status post ORIF ankle TECHNIQUE: Left ankle three views portable COMMENT: There is a fairly long plate with multiple screws in the fibula as well as multiple screws in the distal tibia including the medial malleolus. The alignment of the fibular fracture has improved since the previous study of 10/08/2018. There is an apparent thick periosteal reaction posterior to the distal tibia which was not apparent on the previous study. There is also callus developing around the fibular shaft fracture. IMPRESSION: Status post internal fixation as described. Electronically signed by Gonzalez Gonzales 11/01/2018 2:25 PM
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
[2018-11-01] MEDS: SANTYL OINT TOP SCH (15:50)
[2018-11-01] MEDS: VANCOMYCIN 2,000 MG in NS 500 ML IV SCH (20:24)
[2018-11-01] MEDS ORDERED: LEVAQUIN 500 MG/D5W 500 MG/100 ML IVPB IV SCH (21:00)
[2018-11-01] MEDS: ATIVAN IV PRN (21:35)
[2018-11-02] MEDS: HALDOL IV PRN ×2 (00:18→15:57)
[2018-11-02] MEDS ORDERED: LOPRESSOR IV ONE (00:33)
[2018-11-02] MEDS ORDERED: LANOXIN IV ONE (00:33)
[2018-11-02] MEDS: DUONEB (A & A) INH SCH ×6 (03:33→23:26)
[2018-11-02] MEDS: MORPHINE IV PRN ×3 (04:33→14:38)
[2018-11-02] MEDS: OFIRMEV 1000 MG/ISOTONIC SOLN 1,000 MG/100 ML BOTTLE IV PRN (04:38)
[2018-11-02 06:20] LABS: BASO# 0.02 X1000 (0.0-0.2); BASO% 0.1 % (0.0-0.8); EOS# 0.02 X1000 (0.0-0.7); EOS% 0.1 % (0.0-10.0); HEMATOCRIT 31.5 % (42.0-52.0); HEMOGLOBIN 9.6 g/dL (14.0-18.0); IMM GRAN# 0.17 X1000 (0.0-0.04); IMM GRAN% 0.9 % (0.0-0.5); LYMPH# 1.57 X1000 (1.2-3.4); LYMPH% 8.4 % (20.5-51.1); MCH 28.5 PG (27-31); MCHC 30.5 g/dL (33-37); MCV 93.5 FL (81-99); MONO# 1.73 X1000 (0.11-0.59); MONO% 9.3 % (1.7-9.3); MPV 11.7 FL (7.4-10.4); NEUT# 15.07 X1000 (1.4-6.5); NEUT% 81.2 % (42.2-75.2); PLT 163 X1000 (130-400); RBC 3.37 XMIL (4.7-6.1); RDW 15.1 % (11.5-14.5); WBC 18.58 X1000 (4.8-10.8)
[2018-11-02] MEDS: HUMULIN R SUBQ SCH ×4 (06:43→20:44)
[2018-11-02 06:44] LABS: AGAP 13; ALBUMIN 2.8 g/dL (3.5-5.0); BUN 12 mg/dL (8-22); CALCIUM 8.4 mg/dL (8.8-10.2); CHLORIDE 107 mmol/L (98-107); COSMO 287; CREATININE 0.6 mg/dL (0.7-1.2); ESTIMATED GFR > 60; GLUCOSE 131 mg/dL (70-104); POTASSIUM 3.3 mmol/L (3.5-5.1); SODIUM 143 mmol/L (136-145); TCO2 23 mmol/L (25-35)
[2018-11-02 06:45] LABS: PHOSPHORUS 2.9 mg/dL (2.7-4.5)
[2018-11-02] MEDS: INVANZ 1 GM/NS 1 GM/50 ML IVPB IV SCH (07:42)
--- NOTE | 2018-11-02 10:21 | PROGRESS NOTE ---
DATE: 11/02/2018 SUBJECTIVE: Mr. Nichols appeared to be sleeping as I approached the bedside. He received haloperidol and morphine several hours prior to my visit. He has had mildly elevated temperature, but not tena fever in 36 hours. OBJECTIVE: With moderate stimulation, he grumbled, groaned, moved each limb, turned his head left and right. He opened his eyes. He spoke his name when I asked him to do so. When not vigorously stimulated, he seemed quickly back to sleep. There are full lateral eye movements. Limb tone is symmetric. Plantar response is silent bilaterally. Neck is supple. LABORATORY DATA: Lab shows WBC down to 18,000, continued anemia, mildly elevated blood sugars as before, nothing else really remarkable on chemistry profile. ASSESSMENT/PLAN: I do not have any new thoughts or new suggestions from neurology standpoint. There is evidence of sepsis. He has not had remarkable fever in the last 24 hours. Neck is supple. I do not know his baseline mental state but I suspect he does not have meningitis or other central nervous system Infection now. Some of his current obtundation could be explained with medications. Still, in light of persistent temperature elevation, elevated WBC, positive blood culture, persistent altered mental state, LP would be a good idea. Thanks for asking neurology to see Mr. Nichols. cc: MD BRAULIO Hubbard III
[2018-11-02] MEDS ORDERED: LASIX IV ONE (11:02)
[2018-11-02] MEDS ORDERED: SOLU-MEDROL IV ONE (11:03)
[2018-11-02] MEDS ORDERED: LOPRESSOR IV PRN (11:06)
[2018-11-02] MEDS ORDERED: KLOR-CON PO ONE (11:13)
--- NOTE | 2018-11-02 11:26 | Diag Imaging Result Doc PS360 ---
EXAM: CHEST-PORTABLE HISTORY: dyspnea TECHNIQUE: Portable chest single view COMPARISON: 10/31/2018 FINDINGS: Interval development of atelectasis and/infiltrates in the lower right lung. There are sternal wires and surgical clips. No cardiomegaly. The left costophrenic angle is not included. No pulmonary edema. IMPRESSION: Atelectasis and/or infiltrate in the lower right lung. Electronically signed by Flaco Cabrera 11/02/2018 11:24 AM
[2018-11-02] MEDS: TOPROL XL PO SCH (11:54)
[2018-11-02] MEDS: SANTYL OINT TOP SCH (12:05)
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
[2018-11-02] MEDS: VANCOMYCIN 2,000 MG in NS 500 ML IV SCH (12:57)
[2018-11-02 13:08] LABS: GLUCOSE CSF 80 mg/dL (39-75); PROTEIN CSF 34.3 mg/dL (15-45)
[2018-11-02 13:18] LABS: APPEARANCE CLEAR; RBC BF 0 /cumm; WBC BF 0 /cumm
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
[2018-11-02] MEDS: ATIVAN IV PRN (14:38)
--- NOTE | 2018-11-02 15:00 | ECHO REPORT ---
ORDER DATE: 11/01/2018 INTERPRETING PHYSICIAN: Dr. Cristian Romero ECHOCARDIOGRAPHIC MEASUREMENTS: 1. Interventricular septum 1.5. 2. Left ventricular posterior wall 1.5. 3. Diastolic diameter 5.1. 4. Left atrium. 4.4. 5. Aorta 3. SUMMARY OF THE 2-DIMENSIONAL IMAGIN. Technically suboptimal study. Very poor acoustic window. 2. Aortic valve leaflets were trileaflet. 3. Pulmonic valve not well visualized. 4. Mitral valve was normal. 5. Tricuspid valve was normal. 6. Tachycardia was noted. Heart rate varying from 120 to 135 beats per minute. 7. Left ventricular ejection fraction 55%. The endocardium not well visualized in all views. Tachycardia could overestimate the left ventricular ejection fraction. 8. That is mild mitral regurgitation. 9. Mild tricuspid regurgitation. 10. Peak velocity across the aortic valve less than 2 m/sec. 11. There is no aortic stenosis or regurgitation. 12. Anterior echo-free space suggestive of pericardial fat pad noted. 13. There is no pericardial effusion. 14. Interatrial septum was aneurysmal. cc: Cristian Romero MD
[2018-11-02 15:38] LABS: ALLEN TEST YES; BE 2.4 mmoll (-3.0-3.0); BLOOD TYPE ARTERIAL; HCO3-(ACT) 26.8 mmoll (20.0-26.0); METHB 0.8 % (0.0-1.5); O2(CT) 13.6 mL/dL (15.0-23.0); O2HB 95.4 % (95.0-99.0); PCO2(98.6) 37 mmHg (35-45); PO2(98.6) 76 mmHg (60-100); SAMPLE BLOOD; SAO2 98.2 % (95.0-100.0); THB 10.1 g/dL (11.5-17.4); pH(98.6) 7.46 (7.35-7.45)
[2018-11-02 15:39] LABS: MODALITY CANNULA
[2018-11-02] MEDS ORDERED: HALDOL IV ONE (16:27)
--- NOTE | 2018-11-02 20:28 | OPERATIVE NOTE ---
PROCEDURE DATE: 11/02/2018 After further consideration, in light of his recent fever, persistent mild temperature elevation, elevated WBC, positive blood culture and persistent altered mental state, lumbar puncture was performed. LP was done at the L3 space with opening pressure of 28 cm of CSF. Crystal clear fluid was obtained and sent to the lab. Closing pressure was 15 cm. He tolerated this well. cc: Nury Saha III, MD
[2018-11-03] MEDS: MORPHINE IV PRN ×4 (02:02→15:35)
[2018-11-03] MEDS: ATIVAN IV PRN ×2 (02:02→12:22)
[2018-11-03] MEDS: DUONEB (A & A) INH SCH ×6 (03:46→23:25)
[2018-11-03 05:58] LABS: BASO# 0.01 X1000 (0.0-0.2); BASO% 0.1 % (0.0-0.8); EOS% 0.9 % (0.0-10.0); HEMATOCRIT 34.7 % (42.0-52.0); HEMOGLOBIN 10.6 g/dL (14.0-18.0); IMM GRAN# 0.04 X1000 (0.0-0.04); IMM GRAN% 0.4 % (0.0-0.5); LYMPH# 1.12 X1000 (1.2-3.4); LYMPH% 10.4 % (20.5-51.1); MCH 28.3 PG (27-31); MCHC 30.5 g/dL (33-37); MCV 92.8 FL (81-99); MONO# 0.87 X1000 (0.11-0.59); MONO% 8.1 % (1.7-9.3); MPV 13.4 FL (7.4-10.4); NEUT# 8.64 X1000 (1.4-6.5); NEUT% 80.1 % (42.2-75.2); PLT 140 X1000 (130-400); RBC 3.74 XMIL (4.7-6.1); RDW 15.2 % (11.5-14.5); WBC 10.78 X1000 (4.8-10.8)
[2018-11-03] MEDS: HUMULIN R SUBQ SCH ×4 (06:01→20:21)
[2018-11-03] MEDS: VANCOMYCIN 2,000 MG in NS 500 ML IV SCH (06:30)
[2018-11-03 06:33] LABS: AGAP 14; ALBUMIN 3.1 g/dL (3.5-5.0); BUN 18 mg/dL (8-22); CHLORIDE 101 mmol/L (98-107); COSMO 282; CREATININE 0.8 mg/dL (0.7-1.2); ESTIMATED GFR > 60; GLUCOSE 104 mg/dL (70-104); PHOSPHORUS 3.1 mg/dL (2.7-4.5); POTASSIUM 4.1 mmol/L (3.5-5.1); SODIUM 140 mmol/L (136-145); TCO2 25 mmol/L (25-35)
[2018-11-03] MEDS: INVANZ 1 GM/NS 1 GM/50 ML IVPB IV SCH (08:25)
[2018-11-03] MEDS: TOPROL XL PO SCH (08:25)
[2018-11-03] MEDS: SANTYL OINT TOP SCH (08:55)
[2018-11-03] MEDS ORDERED: LASIX IV ONE (08:57)
[2018-11-03 09:11] LABS: INR 1.23; PROTIME 15.7 Seconds (11.0-16.0)
[2018-11-03] MEDS ORDERED: NS 250 ML ONE (10:46)
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
[2018-11-03] MEDS: SOLU-MEDROL IV SCH (12:07)
[2018-11-03] MEDS: HALDOL IV PRN ×2 (12:37→15:32)
[2018-11-03 13:45] LABS: VDRL CSF SEE COMMENTS
[2018-11-03] MEDS: GEODON IM PRN (14:29)
[2018-11-03] MEDS ORDERED: STERILE WATER INJ. ONE (14:32)
[2018-11-04] MEDS: VANCOMYCIN 2,000 MG in NS 500 ML IV SCH ×2 (02:03→14:28)
[2018-11-04] MEDS: DUONEB (A & A) INH SCH ×6 (03:08→23:32)
[2018-11-04] MEDS: HUMULIN R SUBQ SCH ×4 (06:33→20:35)
[2018-11-04] MEDS: MORPHINE IV PRN ×4 (06:36→22:02)
[2018-11-04] MEDS: ATIVAN IV PRN ×3 (06:36→22:02)
[2018-11-04 06:42] LABS: BASO# 0.01 X1000 (0.0-0.2); BASO% 0.2 % (0.0-0.8); HEMATOCRIT 31.6 % (42.0-52.0); HEMOGLOBIN 9.9 g/dL (14.0-18.0); LYMPH# 1.18 X1000 (1.2-3.4); LYMPH% 22.7 % (20.5-51.1); MCH 28.5 PG (27-31); MCHC 31.3 g/dL (33-37); MCV 91.1 FL (81-99); MONO# 0.75 X1000 (0.11-0.59); MONO% 14.5 % (1.7-9.3); PLT 115 X1000 (130-400); RBC 3.47 XMIL (4.7-6.1); RDW 14.5 % (11.5-14.5); WBC 5.19 X1000 (4.8-10.8)
[2018-11-04 06:54] LABS: AGAP 11; ALBUMIN 2.8 g/dL (3.5-5.0); BUN 19 mg/dL (8-22); CALCIUM 8.1 mg/dL (8.8-10.2); CHLORIDE 99 mmol/L (98-107); COSMO 277; CREATININE 0.6 mg/dL (0.7-1.2); ESTIMATED GFR > 60; GLUCOSE 122 mg/dL (70-104); PHOSPHORUS 4.2 mg/dL (2.7-4.5); POTASSIUM 3.6 mmol/L (3.5-5.1); SODIUM 137 mmol/L (136-145); TCO2 27 mmol/L (25-35)
[2018-11-04] MEDS: TOPROL XL PO SCH (08:03)
[2018-11-04] MEDS: INVANZ 1 GM/NS 1 GM/50 ML IVPB IV SCH (08:03)
[2018-11-04] MEDS: SANTYL OINT TOP SCH (08:04)
[2018-11-04 08:51] LABS: BANDS 6 % (0-1); LYMPHS 28 % (21-51); MONO 16 % (1-9); SEGS 48 % (42-75)
[2018-11-04 08:52] LABS: LARGE PLATELETS 1+
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
[2018-11-04] MEDS: SOLU-MEDROL IV SCH (11:45)
--- NOTE | 2018-11-04 11:49 | ORTHOPAEDICS PROGRESS NOTE ---
DATE: 11/04/2018 Mr. Nichols is seen for his lower extremity wounds. His left ankle wound, which was debrided by Dr. Mccain 2 days ago, looks excellent on exam today. There is healthy granulation tissue. There are no signs of infection. He is rebandaged. We will continue to monitor this intermittently as needed. cc: Axel Hong MD
[2018-11-04] MEDS: PRILOSEC PO SCH (20:35)
[2018-11-05] MEDS: HALDOL IV PRN ×4 (00:05→22:49)
[2018-11-05] MEDS: VANCOMYCIN 2,000 MG in NS 500 ML IV SCH ×2 (01:34→14:27)
[2018-11-05] MEDS: GEODON IM PRN ×2 (02:26→20:32)
[2018-11-05] MEDS: DUONEB (A & A) INH SCH ×6 (04:39→23:53)
[2018-11-05] MEDS: PRILOSEC PO SCH ×2 (06:08→21:21)
[2018-11-05] MEDS: HUMULIN R SUBQ SCH ×4 (06:10→20:15)
[2018-11-05 06:26] LABS: BASO% 0.4 % (0.0-0.8); EOS% 9.3 % (0.0-10.0); HEMATOCRIT 32.8 % (42.0-52.0); HEMOGLOBIN 10.1 g/dL (14.0-18.0); LYMPH% 26.2 % (20.5-51.1); MCH 27.8 PG (27-31); MCHC 30.8 g/dL (33-37); MCV 90.4 FL (81-99); MONO% 16.9 % (1.7-9.3); MPV 13.6 FL (7.4-10.4); NEUT% 46.6 % (42.2-75.2); PLT 110 X1000 (130-400); RBC 3.63 XMIL (4.7-6.1); RDW 14.7 % (11.5-14.5); WBC 5.38 X1000 (4.8-10.8)
[2018-11-05 06:27] LABS: BASO# 0.02 X1000 (0.0-0.2); IMM GRAN# 0.03 X1000 (0.0-0.04); IMM GRAN% 0.6 % (0.0-0.5); LYMPH# 1.41 X1000 (1.2-3.4); MONO# 0.91 X1000 (0.11-0.59); NEUT# 2.51 X1000 (1.4-6.5)
[2018-11-05 06:58] LABS: AGAP 14; ALKALINE PHOSPHATASE 128 U/L (32-122); BUN 16 mg/dL (8-22); CALCIUM 8.9 mg/dL (8.8-10.2); CHLORIDE 103 mmol/L (98-107); COSMO 285; CREATININE 0.6 mg/dL (0.7-1.2); ESTIMATED GFR > 60; GLUCOSE 105 mg/dL (70-104); GOT 18 U/L (10-34); GPT 14 U/L (10-44); POTASSIUM 3.3 mmol/L (3.5-5.1); SODIUM 142 mmol/L (136-145); TCO2 25 mmol/L (25-35); TOTAL BILIRUBIN 0.32 mg/dL (0.20-1.00); TOTAL PROTEIN 6.1 g/dL (6.3-8.3)
[2018-11-05] MEDS: INVANZ 1 GM/NS 1 GM/50 ML IVPB IV SCH (07:54)
[2018-11-05] MEDS: SANTYL OINT TOP SCH (09:30)
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
[2018-11-05] MEDS: TOPROL XL PO SCH (12:13)
[2018-11-05] MEDS: SOLU-MEDROL IV SCH (12:13)
--- NOTE | 2018-11-05 12:13 | PROGRESS NOTE ---
DATE: 11/05/2018 Mr. Nichols is more alert and attentive today than when I last saw him 3 days ago. The spinal fluid reports were unremarkable. I do not see fever recorded since prior to lumbar puncture. There has not been meningismus. IMPRESSION: Global encephalopathy, clinically improved, uncertain baseline mental status. I do not have any urgent suggestion today from Neurology standpoint. cc: MD BRAULIO Hubbard III
[2018-11-05] MEDS: MORPHINE IV PRN ×3 (15:23→23:31)
[2018-11-05] MEDS: ATIVAN IV PRN ×2 (15:23→21:17)
[2018-11-05] MEDS: LOVENOX SUBQ SCH (15:24)
[2018-11-05] MEDS: ZYPREXA ZYDIS PO SCH (20:15)
[2018-11-05] MEDS ORDERED: STERILE WATER INJ. ONE (20:28)
[2018-11-06] MEDS: HALDOL IV PRN ×2 (01:54→19:58)
[2018-11-06] MEDS: VANCOMYCIN 2,000 MG in NS 500 ML IV SCH ×2 (01:59→14:26)
[2018-11-06] MEDS: ATIVAN IV PRN ×2 (03:39→22:17)
[2018-11-06] MEDS: DUONEB (A & A) INH SCH ×6 (03:53→23:01)
[2018-11-06] MEDS: HUMULIN R SUBQ SCH ×4 (06:03→20:14)
[2018-11-06] MEDS: INVANZ 1 GM/NS 1 GM/50 ML IVPB IV SCH (08:45)
[2018-11-06] MEDS: SANTYL OINT TOP SCH (09:48)
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
[2018-11-06] MEDS: SOLU-MEDROL IV SCH (10:57)
[2018-11-06] MEDS: TOPROL XL PO SCH (10:57)
[2018-11-06] MEDS: PRILOSEC PO SCH ×2 (11:00→20:15)
--- NOTE | 2018-11-06 14:09 | PROGRESS NOTE ---
DATE: 11/06/2018 SUBJECTIVE: Mr. Nichols has been reported to be more alert and less combative. DATA: Spinal fluid did not show evidence of meningitis. He has not had any fever (the temperature recorded 107 earlier seems likely spurious) in a few days. PHYSICAL EXAMINATION: On my exam, he appeared to be sleeping. With loud name calling, he woke, looked at me, spoke to me, answered questions appropriately and then seemed quickly back to sleep when I did not vigorously keep him engaged in conversation. ASSESSMENT/PLAN: I do not have any new thoughts or new suggestions from neurology standpoint today. Again, I do not know his baseline cognitive status and I wonder if he might have a cognitive impairment at baseline, which would predispose him to protracted encephalopathy with any toxic or metabolic disturbance. Also, there may be medication effects. Thanks for asking neurology to see Mr. Nichols. cc: MD BRAULIO Hubbard III
[2018-11-06] MEDS: LOVENOX SUBQ SCH (14:26)
[2018-11-06] MEDS: ZYPREXA ZYDIS PO SCH (20:14)
[2018-11-07] MEDS: DUONEB (A & A) INH SCH ×5 (03:31→19:21)
[2018-11-07] MEDS: HALDOL IV PRN ×2 (04:42→11:30)
[2018-11-07] MEDS: MORPHINE IV PRN ×6 (04:46→23:49)
[2018-11-07] MEDS: PRILOSEC PO SCH ×3 (05:58→22:37)
[2018-11-07] MEDS: HUMULIN R SUBQ SCH ×4 (06:26→23:43)
[2018-11-07] MEDS: VANCOMYCIN 2,000 MG in NS 500 ML IV SCH (06:44)
[2018-11-07] MEDS: INVANZ 1 GM/NS 1 GM/50 ML IVPB IV SCH (08:44)
[2018-11-07] MEDS: TOPROL XL PO SCH (09:05)
[2018-11-07] MEDS: SANTYL OINT TOP SCH (09:06)
[2018-11-07] MEDS: VANCOMYCIN 1,750 MG in NS 250 ML IV SCH ×2 (10:14→22:36)
[2018-11-07] MEDS: SOLU-MEDROL IV SCH (11:31)
[2018-11-07] MEDS: ATIVAN IV PRN (12:10)
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
[2018-11-07] MEDS: LOVENOX SUBQ SCH (15:24)
[2018-11-07] MEDS: ZYPREXA ZYDIS PO SCH (22:36)
[2018-11-08] MEDS: HALDOL IV PRN ×2 (00:54→18:05)
[2018-11-08] MEDS: DUONEB (A & A) INH SCH ×7 (03:15→23:24)
[2018-11-08 07:02] LABS: BASO# 0.01 X1000 (0.0-0.2); BASO% 0.1 % (0.0-0.8); EOS# 0.11 X1000 (0.0-0.7); EOS% 1.5 % (0.0-10.0); HEMATOCRIT 33.6 % (42.0-52.0); HEMOGLOBIN 10.4 g/dL (14.0-18.0); IMM GRAN# 0.03 X1000 (0.0-0.04); IMM GRAN% 0.4 % (0.0-0.5); LYMPH# 2.78 X1000 (1.2-3.4); LYMPH% 37.7 % (20.5-51.1); MCV 90.3 FL (81-99); MONO% 13.6 % (1.7-9.3); MPV 12.8 FL (7.4-10.4); NEUT# 3.45 X1000 (1.4-6.5); NEUT% 46.7 % (42.2-75.2); PLT 159 X1000 (130-400); RBC 3.72 XMIL (4.7-6.1); RDW 14.9 % (11.5-14.5); WBC 7.38 X1000 (4.8-10.8)
[2018-11-08 07:13] LABS: AGAP 9; ALBUMIN 3.1 g/dL (3.5-5.0); ALKALINE PHOSPHATASE 129 U/L (32-122); BUN 13 mg/dL (8-22); CHLORIDE 103 mmol/L (98-107); COSMO 279; CREATININE 0.8 mg/dL (0.7-1.2); ESTIMATED GFR > 60; GLUCOSE 95 mg/dL (70-104); GOT 12 U/L (10-34); GPT 10 U/L (10-44); POTASSIUM 3.2 mmol/L (3.5-5.1); SODIUM 140 mmol/L (136-145); TCO2 28 mmol/L (25-35); TOTAL BILIRUBIN 0.35 mg/dL (0.20-1.00); TOTAL PROTEIN 6.1 g/dL (6.3-8.3)
[2018-11-08] MEDS ORDERED: KLOR-CON PO ONE (08:28)
[2018-11-08] MEDS: TOPROL XL PO SCH (09:30)
[2018-11-08] MEDS: PRILOSEC PO SCH ×2 (09:30→22:00)
[2018-11-08] MEDS: MORPHINE IV PRN ×3 (09:42→18:04)
[2018-11-08] MEDS: INVANZ 1 GM/NS 1 GM/50 ML IVPB IV SCH (10:27)
[2018-11-08] MEDS: HUMULIN R SUBQ SCH ×3 (12:24→21:52)
[2018-11-08] MEDS: SOLU-MEDROL IV SCH (12:27)
[2018-11-08] MEDS: VANCOMYCIN 1,750 MG in NS 250 ML IV SCH ×2 (12:27→21:52)
--- NOTE | 2018-11-08 12:51 | PROGRESS NOTE ---
DATE: 11/08/2018 SUBJECTIVE: Mr. Nichols moved out of ICU yesterday. OBJECTIVE: Today, he is wide awake, alert, bright, attentive, answering questions appropriately. He is oriented. Speech is minimally dysarthric, but very easy to understand. He moved all limbs well. I observed him pushing himself to a sitting position at the edge of the bed. I do not have any new thoughts or new suggestions from Neurology standpoint. His baseline mental state is not certain to me, but he may be close to that now. Generalized encephalopathy present earlier appears to be resolved now. Precise explanation for that period of encephalopathy is not clear to me, and there may have been multiple factors. No new suggestion from Neurology standpoint. Thanks for asking us to see Mr. Nichols. cc: MD BRAULIO Hubbard III
[2018-11-08] MEDS: ATIVAN IV PRN (13:23)
[2018-11-08] MEDS: SANTYL OINT TOP SCH (14:41)
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
[2018-11-08] MEDS: LOVENOX SUBQ SCH (18:04)
[2018-11-08] MEDS: ZYPREXA ZYDIS PO SCH (22:00)
[2018-11-09] MEDS: MORPHINE IV PRN ×5 (01:20→22:54)
[2018-11-09] MEDS: HALDOL IV PRN ×4 (02:29→22:09)
[2018-11-09] MEDS: ATIVAN IV PRN ×2 (03:10→19:52)
[2018-11-09] MEDS: DUONEB (A & A) INH SCH ×6 (03:37→23:14)
[2018-11-09] MEDS: PRILOSEC PO SCH ×2 (06:07→20:56)
[2018-11-09] MEDS: HUMULIN R SUBQ SCH ×4 (06:39→22:32)
[2018-11-09] MEDS: INVANZ 1 GM/NS 1 GM/50 ML IVPB IV SCH ×2 (10:21→19:53)
[2018-11-09] MEDS: TOPROL XL PO SCH (10:21)
[2018-11-09] MEDS: OFIRMEV 1000 MG/ISOTONIC SOLN 1,000 MG/100 ML BOTTLE IV PRN (12:27)
[2018-11-09] MEDS: SOLU-MEDROL IV SCH (12:37)
[2018-11-09] MEDS: SANTYL OINT TOP SCH (15:17)
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
[2018-11-09] MEDS: LOVENOX SUBQ SCH (15:38)
[2018-11-09] MEDS ORDERED: VANCOMYCIN 1,500 MG in NS 250 ML IV SCH (18:00)
[2018-11-09] MEDS: ABILIFY PO SCH ×2 (19:52→20:54)
[2018-11-09] MEDS: DOXYCYCLINE PO SCH ×2 (19:52→20:56)
[2018-11-09] MEDS: ZYPREXA ZYDIS PO SCH ×2 (19:53→20:55)
[2018-11-10] MEDS: DUONEB (A & A) INH SCH ×5 (03:44→19:47)
[2018-11-10] MEDS: HUMULIN R SUBQ SCH ×4 (06:39→21:00)
[2018-11-10] MEDS: ATIVAN IV PRN ×2 (06:48→15:54)
[2018-11-10] MEDS: MORPHINE IV PRN ×5 (06:48→21:59)
[2018-11-10] MEDS: PRILOSEC PO SCH ×2 (06:55→21:58)
[2018-11-10] MEDS: TOPROL XL PO SCH (08:24)
[2018-11-10] MEDS: DOXYCYCLINE PO SCH ×2 (08:24→21:58)
[2018-11-10] MEDS: PREDNISONE PO SCH (08:24)
[2018-11-10] MEDS: HALDOL IV PRN ×2 (08:38→11:09)
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
[2018-11-10] MEDS: INVANZ 1 GM/NS 1 GM/50 ML IVPB IV SCH (12:55)
[2018-11-10] MEDS: SANTYL OINT TOP SCH (13:01)
[2018-11-10] MEDS: OFIRMEV 1000 MG/ISOTONIC SOLN 1,000 MG/100 ML BOTTLE IV PRN (13:52)
[2018-11-10] MEDS: LOVENOX SUBQ SCH (15:48)
[2018-11-10] MEDS: ABILIFY PO SCH (21:58)
[2018-11-11] MEDS: DUONEB (A & A) INH SCH ×6 (00:04→20:07)
[2018-11-11] MEDS: MORPHINE IV PRN ×4 (06:37→23:50)
[2018-11-11] MEDS: PRILOSEC PO SCH ×2 (06:37→21:25)
[2018-11-11] MEDS: HUMULIN R SUBQ SCH ×4 (07:56→21:25)
[2018-11-11] MEDS: ZYPREXA ZYDIS PO SCH ×2 (07:56→21:25)
[2018-11-11] MEDS: TOPROL XL PO SCH (09:28)
[2018-11-11] MEDS: DOXYCYCLINE PO SCH ×2 (09:28→21:25)
[2018-11-11] MEDS: PREDNISONE PO SCH (09:28)
[2018-11-11] MEDS: INVANZ 1 GM/NS 1 GM/50 ML IVPB IV SCH (09:29)
[2018-11-11] MEDS: SANTYL OINT TOP SCH (09:46)
[2018-11-11] MEDS: NORCO-7.5 PO PRN (11:43)
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
[2018-11-11] MEDS: LOVENOX SUBQ SCH (15:21)
[2018-11-11] MEDS: ABILIFY PO SCH (21:25)
[2018-11-12] MEDS: DUONEB (A & A) INH SCH ×6 (00:15→19:26)
[2018-11-12] MEDS: NORCO-7.5 PO PRN ×3 (03:19→18:48)
[2018-11-12] MEDS: HUMULIN R SUBQ SCH ×3 (06:49→16:12)
[2018-11-12] MEDS: PRILOSEC PO SCH ×2 (06:56→23:05)
[2018-11-12] MEDS: INVANZ 1 GM/NS 1 GM/50 ML IVPB IV SCH (08:07)
[2018-11-12] MEDS: DOXYCYCLINE PO SCH ×2 (08:08→23:05)
[2018-11-12] MEDS: PREDNISONE PO SCH (08:08)
[2018-11-12] MEDS: TOPROL XL PO SCH (08:08)
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
[2018-11-12] MEDS: MORPHINE IV PRN ×2 (13:21→23:15)
[2018-11-12] MEDS: LOVENOX SUBQ SCH (16:38)
[2018-11-12] MEDS: ABILIFY PO SCH (23:04)
[2018-11-12] MEDS: ZYPREXA ZYDIS PO SCH (23:05)
[2018-11-13] MEDS: HUMULIN R SUBQ SCH ×5 (00:16→21:03)
[2018-11-13] MEDS: DUONEB (A & A) INH SCH ×5 (04:18→19:51)
[2018-11-13] MEDS: PRILOSEC PO SCH ×3 (05:32→20:52)
[2018-11-13] MEDS: MORPHINE IV PRN ×3 (05:33→20:52)
[2018-11-13] MEDS: NORCO-7.5 PO PRN ×2 (06:53→17:03)
[2018-11-13] MEDS: INVANZ 1 GM/NS 1 GM/50 ML IVPB IV SCH (08:50)
[2018-11-13] MEDS: DOXYCYCLINE PO SCH ×2 (08:50→20:52)
[2018-11-13] MEDS: TOPROL XL PO SCH (08:50)
[2018-11-13] MEDS: LOVENOX SUBQ SCH (14:12)
[2018-11-13] MEDS: SANTYL OINT TOP SCH ×2 (14:14→14:56)
--- NOTE | 2018-11-13 16:23 | PROGRESS NOTE ---
DATE: 11/13/2018 SUBJECTIVE: Patient has no major complaints. OBJECTIVE: Blood pressure 137/86, heart rate of 88, respiratory rate 18, and temperature 98.3 degrees.Cardiovascular: Regular rate and rhythm. Pulmonary: Bilateral breath sounds. Clear to auscultation. GI: Soft, nontender, and nondistended. Bowel sounds are positive. Extremities: No clubbing or cyanosis. LABORATORY DATA: I do not have any new data today. He has been pretty stable. PROBLEM LIST: 1. Encephalopathy seems to be stable currently. Still has some relative tangential thinking. He has a history of schizophrenia, but he is on medications. Appears to be stable. 2. ESBL. Escherichia coli urinary tract infection and wound infection, which is also growing out ESBL Escherichia coli. He is on Invanz, and we will continue IV antibiotics. Today, will be day 11 out of 14. 3. Coronary artery disease appears to be stable. 4. Chronic obstructive pulmonary disease is stable. DISPOSITION: We are going to discharge him tomorrow to LTAC once he is stabilized. Anticipate discharge in the morning to LTAC. cc: Moises Lopez MD
[2018-11-13] MEDS: ABILIFY PO SCH (20:52)
[2018-11-13] MEDS: ZYPREXA ZYDIS PO SCH (20:57)
[2018-11-14] MEDS: NORCO-7.5 PO PRN ×2 (01:19→10:31)
[2018-11-14] MEDS: MORPHINE IV PRN ×2 (05:36→12:04)
[2018-11-14] MEDS: DUONEB (A & A) INH SCH ×3 (05:43→11:37)
[2018-11-14] MEDS: PRILOSEC PO SCH (06:01)
[2018-11-14] MEDS: HUMULIN R SUBQ SCH (06:47)
[2018-11-14] MEDS: DOXYCYCLINE PO SCH (10:31)
[2018-11-14] MEDS: TOPROL XL PO SCH (10:31)
[2018-11-14] MEDS: INVANZ 1 GM/NS 1 GM/50 ML IVPB IV SCH (10:32)
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
[2018-11-14] MEDS: SANTYL OINT TOP SCH (11:59)
[2018-11-14 12:16] VITALS: BP 109/74
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
== END 2018-11-14 12:21 | DRG 853 ==
LOC: ED 18:58 → SUATTDRO 22:51 → 3N 22:51 → ICU 11-01 06:48 → 4N 11-07 14:16
PROVIDERS: ATTEND Internal Medicine

== ENCOUNTER 2018-12-22 16:41 | Inpatient (IN) ==
[2018-12-22 18:14] LABS: URINE SOURCE CLEAN CATCH
[2018-12-22 18:21] LABS: BASO# 0.01 X1000 (0.0-0.2); BASO% 0.1 % (0.0-0.8); EOS# 0.33 X1000 (0.0-0.7); EOS% 3.6 % (0.0-10.0); HEMATOCRIT 38.8 % (42.0-52.0); HEMOGLOBIN 11.7 g/dL (14.0-18.0); IMM GRAN# 0.04 X1000 (0.0-0.04); IMM GRAN% 0.4 % (0.0-0.5); LYMPH# 2.83 X1000 (1.2-3.4); LYMPH% 30.8 % (20.5-51.1); MCH 26.1 PG (27-31); MCHC 30.2 g/dL (33-37); MCV 86.6 FL (81-99); MONO# 0.95 X1000 (0.11-0.59); MONO% 10.3 % (1.7-9.3); MPV 11.7 FL (7.4-10.4); NEUT# 5.04 X1000 (1.4-6.5); NEUT% 54.8 % (42.2-75.2); PLT 181 X1000 (130-400); RBC 4.48 XMIL (4.7-6.1); RDW 14.9 % (11.5-14.5)
[2018-12-22 18:24] LABS: BILIRUBIN URINE NEGATIVE (NEGATIVE); BLOOD URINE NEGATIVE (NEGATIVE); COLOR YELLOW; GLUCOSE URINE NEGATIVE (NEGATIVE); KETONE URINE NEGATIVE (NEGATIVE); LEUKOCYTES URINE NEGATIVE (NEGATIVE); NITRITE URINE NEGATIVE (NEGATIVE); PH URINE 6.5; PROTEIN URINE NEGATIVE (NEGATIVE); SP GRAVITY URINE 1.016; TURBIDITY URINE CLEAR (CLEAR); UR EPITHELIAL CELLS <10 /HPF (<10); URINE BACTERIA NEGATIVE /HPF; URINE RBC <10 /HPF (<10); URINE WBC <10 /HPF (<10); UROBILINOGEN URINE NORMAL (NORMAL)
[2018-12-22 18:30] LABS: UR AMPHETAMINES QUAL NONE DETECTED (NONE DETECT); UR BARBITUATES QUAL NONE DETECTED (NONE DETECT); UR BENZODIAZEPIN QUAL PRESUMPTIVE POSITIVE (NONE DETECT); UR CANNABINOIDS QUAL NONE DETECTED (NONE DETECT); UR COCAINE QUAL NONE DETECTED (NONE DETECT); UR METHADONE QUAL NONE DETECTED (NONE DETECT); UR OPIATES QUAL PRESUMPTIVE POSITIVE (NONE DETECT); UR OXYCODONE QUAL NONE DETECTED (NONE DETECT); UR PCP QUAL NONE DETECTED (NONE DETECT)
[2018-12-22 19:20] LABS: AGAP 13; ALB/GLOB RATIO 1.2; ALBUMIN 3.7 g/dL (3.5-5.0); ALKALINE PHOSPHATASE 170 U/L (32-122); BUN 11 mg/dL (8-22); CALCIUM 9.2 mg/dL (8.8-10.2); CHLORIDE 103 mmol/L (98-107); COSMO 283; CREATININE 0.6 mg/dL (0.7-1.2); ESTIMATED GFR > 60; GLUCOSE 99 mg/dL (70-104); GOT 14 U/L (10-34); GPT 9 U/L (10-44); POTASSIUM 3.9 mmol/L (3.5-5.1); SODIUM 142 mmol/L (136-145); TCO2 26 mmol/L (25-35); TOTAL BILIRUBIN 0.44 mg/dL (0.20-1.00); TOTAL PROTEIN 6.9 g/dL (6.3-8.3)
--- NOTE | 2018-12-22 21:05 | Diag Imaging Result Doc PS360 ---
EXAM: CT HEAD W/O CONTRAST 12/22/2018 HISTORY: AMS TECHNIQUE: This exam was performed using automated exposure control, adjustment of mA or kV according to patient size, and/or use of iterative reconstruction technique. COMMENT: There are calcifications in the right vertebral and both internal carotid arteries. There is no evidence of mass effect, bleed, or abnormal extra-axial fluid collection. The visualized paranasal sinuses are clear. Compared to 10/31/2018 the appearance the brain has not changed significantly. IMPRESSION: No evidence of acute intracranial disease. Electronically signed by Gonzalez Gonzales 12/22/2018 9:03 PM
[2018-12-22 21:59] LABS: BLOOD TYPE ARTERIAL; SAMPLE BLOOD
[2018-12-22 22:00] LABS: ALLEN TEST YES; BE 2.3 mmoll (-3.0-3.0); HCO3-(ACT) 26.5 mmoll (20.0-26.0); METHB 1.6 % (0.0-1.5); MODALITY ROOM AIR; O2(CT) 14.4 mL/dL (15.0-23.0); PCO2(98.6) 43 mmHg (35-45); PO2(98.6) 54 mmHg (60-100); SAO2 92.2 % (95.0-100.0); THB 11.6 g/dL (11.5-17.4); pH(98.6) 7.41 (7.35-7.45)
[2018-12-22 22:02] LABS: O2HB 88.3 % (95.0-99.0)
[2018-12-22] MEDS ORDERED: ZOFRAN IV PRN (23:18)
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
[2018-12-23] MEDS: LOVENOX SUBQ SCH ×2 (00:42→05:33)
[2018-12-23] MEDS: ZYPREXA PO SCH ×2 (00:42→21:06)
[2018-12-23] MEDS: DILAUDID IV PRN ×3 (00:48→16:40)
[2018-12-23 07:32] LABS: HEMATOCRIT 36.8 % (42.0-52.0); HEMOGLOBIN 11.1 g/dL (14.0-18.0); MCH 26.1 PG (27-31); MCHC 30.2 g/dL (33-37); MCV 86.6 FL (81-99); RBC 4.25 XMIL (4.7-6.1); WBC 6.78 X1000 (4.8-10.8)
[2018-12-23 07:33] LABS: BASO# 0.03 X1000 (0.0-0.2); BASO% 0.4 % (0.0-0.8); EOS# 0.31 X1000 (0.0-0.7); EOS% 4.6 % (0.0-10.0); LYMPH# 2.15 X1000 (1.2-3.4); LYMPH% 31.7 % (20.5-51.1); MONO# 0.87 X1000 (0.11-0.59); MONO% 12.8 % (1.7-9.3); MPV 12.1 FL (7.4-10.4); NEUT# 3.42 X1000 (1.4-6.5); NEUT% 50.5 % (42.2-75.2); PLT 202 X1000 (130-400); RDW 14.8 % (11.5-14.5)
[2018-12-23 07:56] LABS: AGAP 11; BUN 11 mg/dL (8-22); CALCIUM 9.6 mg/dL (8.8-10.2); CHLORIDE 105 mmol/L (98-107); COSMO 286; CREATININE 0.6 mg/dL (0.7-1.2); ESTIMATED GFR > 60; GLUCOSE 122 mg/dL (70-104); POTASSIUM 3.6 mmol/L (3.5-5.1); SODIUM 143 mmol/L (136-145); TCO2 27 mmol/L (25-35)
[2018-12-23] MEDS: PRINIVIL PO SCH ×2 (08:44→21:06)
[2018-12-23] MEDS: XANAX PO SCH ×2 (08:44→21:06)
[2018-12-23] MEDS: TOPROL XL PO SCH (08:44)
[2018-12-23] MEDS: PROZAC PO SCH (08:44)
[2018-12-23] MEDS ORDERED: VITAMIN D SCH (09:00)
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
--- NOTE | 2018-12-23 12:31 | PROGRESS NOTE ---
DATE: 12/23/2018 SUBJECTIVE: The patient apparently continues to be confused. His speech is kind of garbled and slurred but the speech is coherent and makes sense. Denies any pain at the time of my examination. OBJECTIVE: Vital Signs: Temperature 98.0 degrees, heart rate 93, respiratory rate 22, blood pressure 147/81, O2 saturation 96% on room air. General Examination: This is a 58-year-old, male, lying in bed, in no acute distress. Cardiovascular Examination: S1 and S2 heard. No murmurs, gallops, or rubs. Regular rate and rhythm. Respiratory Examination: Clear bilaterally to auscultation. No work of breathing or using accessory muscles. Abdomen: Soft. Nontender to palpation. Bowel sounds present. No organomegaly. Extremities: There is, in the left ankle, a wound that has some drainage. Apparently, he got a surgery last month. Neurological Examination: The patient is awake and oriented x3. Moves 4 extremities. Laboratory Data: Reviewed. ASSESSMENT: 1. Altered mental status, multifactorial. 2. Possible opiate withdrawal. 3. Possible infection of the left ankle. 4. Diabetes mellitus type 2. 5. Chronic obstructive pulmonary disease. 6. Hypertension. 7. Schizophrenia. PLAN: At this point, the patient is less confused definitely, although he had slurred speech that I do not know if that is his baseline. In any case, we will continue to monitor this patient closely. The patient is receiving here Dilaudid for pain as needed. I think we will continue with the same management. Because the left ankle looks to be infected, because he had some drainage coming from there, I will go ahead and consult orthopedics and see what they think. For the diabetes mellitus type 2, we will continue with sliding scale insulin, and Accu-Chek before meals and also at bedtime. If the patient continues to be encephalopathic or more confused, we will consult neurology tomorrow. cc: Jerrell Redding MD
--- NOTE | 2018-12-23 13:04 | Diag Imaging Result Doc PS360 ---
EXAM: ANKLE COMPLETE LEFT 12/23/2018 HISTORY: pain TECHNIQUE: Left ankle three views COMMENT: There has been internal fixation of the distal fibula and medial malleolus. There is considerable callus formation between the tibia and fibula and around and superior to the medial malleolus. There is soft tissue swelling. There appears to be greater displacement between the medial malleolar fragment and the rest of the distal tibia compared to the previous study of 11/01/2018. There is also some displacement of the plafond anteriorly and laterally with respect to the talar dome compared to the previous study. IMPRESSION: Unstable ankle. Delayed union of the medial malleolar fracture. Electronically signed by Gonzalez Gonzales 12/23/2018 1:02 PM
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
--- NOTE | 2018-12-23 17:23 | Diag Imaging Result Doc PS360 ---
EXAM: ANKLE COMPLETE RIGHT 12/23/2018 HISTORY: Fracture TECHNIQUE: Right ankle three views COMMENT: There is a healing fracture of the mid tibial shaft. There has been internal fixation and there is an intramedullary fred. There are plates in the distal fibula and tibia with multiple screws including a malleolar screw. There is callus formation between the tibia and distal fibula. The ankle mortise appears to be intact. There is soft tissue swelling around the ankle. IMPRESSION: Healing fractures of the tibial shaft, medial malleolus and distal fibula. Electronically signed by Gonzalez Gonzales 12/23/2018 5:20 PM
--- NOTE | 2018-12-23 17:24 | Diag Imaging Result Doc PS360 ---
EXAM: LOWER LEG-RIGHT 12/23/2018 HISTORY: Fracture TECHNIQUE: Right tibia and fibula COMMENT: There is a healing fracture of the mid tibial shaft with callus formation. There is an intramedullary fred. There is also some callus around a fracture of the upper fibula just below the head. Compared to 11/01/2018 the amount of callus has increased in the fracture lines are less well defined. IMPRESSION: Healing fracture of the mid tibial shaft. Healing fracture of the proximal fibula. Electronically signed by Gonzalez Gonzales 12/23/2018 5:22 PM
[2018-12-23] MEDS: ABILIFY PO SCH (21:06)
[2018-12-23] MEDS: NORVASC PO SCH (21:06)
[2018-12-23] MEDS: PRILOSEC PO SCH (21:06)
[2018-12-23] MEDS: CRESTOR PO SCH (21:06)
[2018-12-24] MEDS: DILAUDID IV PRN ×2 (01:28→07:19)
[2018-12-24] MEDS: LOVENOX SUBQ SCH (05:45)
[2018-12-24] MEDS: PRINIVIL PO SCH ×2 (08:29→20:41)
[2018-12-24] MEDS: TOPROL XL PO SCH (08:29)
[2018-12-24] MEDS: XANAX PO SCH (08:29)
[2018-12-24] MEDS: PROZAC PO SCH (08:29)
[2018-12-24] MEDS ORDERED: VANCOMYCIN IV PER PHARMACY MISC SCH (11:30)
--- NOTE | 2018-12-24 12:30 | PROGRESS NOTE ---
DATE: 12/24/2018 SUBJECTIVE: Patient still seems kind of lethargic, slurring words like he is over using pain medication, but in any case, he had an ESBL infection of his foot previously and of his urine, which was sensitive to imipenem and Macrobid alone. In any case, now he presents with confusion and fever. ALLERGIES: Reportedly, he is allergic to Tylenol. OBJECTIVE: Vital Signs: He has a fever today, 102.3, was 103 earlier. Of course, he is not really aware of it. Reportedly, he is allergic to Tylenol in any case. Blood pressure is 161/97, heart rate of 85, respiratory rate of 20, temperature 97.8 degrees, 100% on room air. Cardiovascular: Regular rate and rhythm. Pulmonary: Bilateral breath sounds clear to auscultation. Abdomen: Soft, nontender, nondistended. Bowel sounds are positive. Extremities: His legs,. bilateral swelling and erythema on both areas. No open areas of denudation or ulceration. LABORATORY DATA: I do not have much new data today. He has not had a white count. His sedimentation rate is 40. We have never had any cultures, so nothing to go there from. But in any case, the patient was admitted. IMPRESSION: 1. Fever of unknown origin, but I would say most likely this is cellulitis. He had cellulitis previously. Orthopedics does not feel like there is necessarily infection in his foot, but it is erythematous and he has a fever of 103. He has healing fractures and he has had an extended spectrum beta-lactamase Escherichia coli infection in the foot before, so it stands to reason. But in any case, we will get blood cultures, chest x-ray. Urine looked pretty clear. We will get culture and follow. When he was discharged last time, he was discharged on Invanz. There is certainly a chance he could have infection that either relates to that or related to recent PICC insertion. So, we will start vancomycin and I am going to start Merrem just based on his history, and we will follow. Most likely we will need Infectious Disease input but that is pending clinical improvement or if he is not improved and we do not clearly have a source. 2. Opiate withdrawal. We will continue medications and follow. 3. Type 2 diabetes. We will continue to monitor his blood sugars closely. 4. History of schizophrenia and confusion. He has had this issue before. I am not sure if there is delirium. We will keep him on his regular medications and follow. DISPOSITION: Pending his clinical status. cc: Moises Lopez MD
[2018-12-24] MEDS: MERREM 1 GM in NS 50 ML IV SCH ×2 (13:12→20:41)
[2018-12-24] MEDS: LASIX PO SCH (13:12)
[2018-12-24] MEDS: MOTRIN PO PRN (13:12)
[2018-12-24] MEDS: VANCOMYCIN 2 GM in NS 500 ML IV SCH (14:49)
[2018-12-24] MEDS: PRILOSEC PO SCH (20:41)
[2018-12-24] MEDS: ABILIFY PO SCH (20:41)
[2018-12-24] MEDS: CRESTOR PO SCH (20:41)
[2018-12-24] MEDS: NORVASC PO SCH (20:41)
[2018-12-24] MEDS: ZYPREXA PO SCH (20:41)
[2018-12-25] MEDS: MERREM 1 GM in NS 50 ML IV SCH (03:57)
[2018-12-25] MEDS: MOTRIN PO PRN (03:59)
[2018-12-25] MEDS: XANAX PO SCH ×3 (06:36→21:06)
[2018-12-25] MEDS: LOVENOX SUBQ SCH (06:37)
[2018-12-25 06:51] LABS: BASO# 0.02 X1000 (0.0-0.2); BASO% 0.3 % (0.0-0.8); EOS# 0.16 X1000 (0.0-0.7); EOS% 2.3 % (0.0-10.0); HEMATOCRIT 37.4 % (42.0-52.0); HEMOGLOBIN 11.6 g/dL (14.0-18.0); IMM GRAN# 0.03 X1000 (0.0-0.04); IMM GRAN% 0.4 % (0.0-0.5); LYMPH# 1.28 X1000 (1.2-3.4); LYMPH% 18.5 % (20.5-51.1); MCH 26.1 PG (27-31); MCV 84.2 FL (81-99); MONO# 0.84 X1000 (0.11-0.59); MONO% 12.1 % (1.7-9.3); MPV 12.1 FL (7.4-10.4); NEUT% 66.4 % (42.2-75.2); PLT 174 X1000 (130-400); RBC 4.44 XMIL (4.7-6.1); RDW 15.2 % (11.5-14.5); WBC 6.93 X1000 (4.8-10.8)
--- NOTE | 2018-12-25 07:43 | Diag Imaging Result Doc PS360 ---
EXAM: CHEST-2 VIEWS INDICATION: hypoxia TECHNIQUE: 2 views COMPARISON: 11/02/2018 FINDINGS: Atelectasis +/- infiltrate at the right lung base has improved slightly. No new consolidation is appreciated. The cardiac silhouette is stable. IMPRESSION: Interval slight improvement. Electronically signed by Axel Morris 12/25/2018 7:41 AM
[2018-12-25 07:51] LABS: AGAP 19; BUN 9 mg/dL (8-22); CALCIUM 9.3 mg/dL (8.8-10.2); CHLORIDE 97 mmol/L (98-107); COSMO 274; CREATININE 0.7 mg/dL (0.7-1.2); ESTIMATED GFR > 60; GLUCOSE 119 mg/dL (70-104); POTASSIUM 3.1 mmol/L (3.5-5.1); SODIUM 137 mmol/L (136-145); TCO2 21 mmol/L (25-35)
[2018-12-25] MEDS: SYMBICORT 160/4.5 MICROGM INHALER INH SCH (08:05)
[2018-12-25] MEDS: VANCOMYCIN 2 GM in NS 500 ML IV SCH (08:19)
--- NOTE | 2018-12-25 08:22 | ORTHOPAEDICS PROGRESS NOTE ---
DATE: 12/25/2018 SUBJECTIVE: Mr. Nichols is lying in bed this morning. Overall, resting well. I tried to converse with him some this morning. He answered some questions appropriately and others, he did not. OBJECTIVE: Left Lower Extremity Examination: His lateral wound looks a lot better than a few weeks ago. It looks like it is drying up. That medial wound has actually gotten a lot smaller as well. It was very a large wound several weeks back and has improved greatly over the past few weeks. It is still sort of an open area. There is a little bit of slight erythema and swelling around that area. He does have swelling to the ankle as a whole on that left side and he does have tenderness to palpation around that area. Right Lower Extremity Examination: His incisions are all well healed on that side. He is able to move the ankle around fairly well. He does not seem to be having a lot of tenderness to palpation on that side. He does not communicate well with me on his physical exam part. Radiographs: Three views of the left ankle show that medial malleolar area widened out and is beginning to heal in the malunited position which causes the ankle to now be unstable and the ankle mortise is wide. The fibula looks to be healing well. The plate and screws there look to be in good position. Several views of the right leg and ankle were reviewed which show the tibial fred looks to be in good position. He is getting some good bony healing around that tibial fracture site. Ankle looks to be healing well also and all the hardware looks to be in good position. Ankle mortise looks to be good on that side. ASSESSMENT: 1. Left leg cellulitis with healing wounds. 2. Left leg posttraumatic ankle osteoarthritis. 3. Right tibia nailing. 4. Right open reduction and internal fixation, right ankle. PLAN: I tried to discuss with Mr. Nichols about his predicament. Unfortunately, though, he was not understanding. He does not have any family around either to communicate with. He did not even have an emergency contact number in his chart. At this point, we really do need social media manager involved to possibly make him a wills of the state so that we can get a consent to do larger medical procedures. I am going to also aspirate the left ankle on the medial side to see if any pus does come out of that ankle joint. I know he is on IV antibiotics per the primary team for his blood cultures and his cellulitis. I am not convinced right now that the ankle is infected but, like I said, we will aspirate it and see. Then we will continue to follow but we do need social media manager involved in his medical care since he is schizophrenic and cannot provide consent for himself. cc: Jose Francisco Mccain MD
[2018-12-25] MEDS: PROZAC PO SCH (10:58)
[2018-12-25] MEDS: LASIX PO SCH (10:58)
[2018-12-25] MEDS: PRINIVIL PO SCH ×2 (10:59→21:05)
[2018-12-25] MEDS: TOPROL XL PO SCH (10:59)
[2018-12-25] MEDS: DILAUDID IV PRN ×2 (13:36→14:43)
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
[2018-12-25] MEDS: PRILOSEC PO SCH (21:05)
[2018-12-25] MEDS: ABILIFY PO SCH (21:05)
[2018-12-25] MEDS: NORVASC PO SCH (21:05)
[2018-12-25] MEDS: ZYPREXA PO SCH (21:05)
[2018-12-25] MEDS: CRESTOR PO SCH (21:05)
[2018-12-26] MEDS: VANCOMYCIN 2 GM in NS 500 ML IV SCH (02:10)
[2018-12-26] MEDS: LOVENOX SUBQ SCH (06:15)
[2018-12-26 07:15] LABS: BASO# 0.03 X1000 (0.0-0.2); BASO% 0.3 % (0.0-0.8); EOS# 0.58 X1000 (0.0-0.7); EOS% 5.2 % (0.0-10.0); HEMOGLOBIN 11.3 g/dL (14.0-18.0); IMM GRAN# 0.03 X1000 (0.0-0.04); IMM GRAN% 0.3 % (0.0-0.5); LYMPH# 2.81 X1000 (1.2-3.4); LYMPH% 25.2 % (20.5-51.1); MCH 25.8 PG (27-31); MCHC 30.5 g/dL (33-37); MCV 84.5 FL (81-99); MONO# 1.46 X1000 (0.11-0.59); MONO% 13.1 % (1.7-9.3); MPV 12.2 FL (7.4-10.4); NEUT# 6.22 X1000 (1.4-6.5); NEUT% 55.9 % (42.2-75.2); PLT 187 X1000 (130-400); RBC 4.38 XMIL (4.7-6.1); RDW 15.1 % (11.5-14.5); WBC 11.13 X1000 (4.8-10.8)
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
[2018-12-26] MEDS: SYMBICORT 160/4.5 MICROGM INHALER INH SCH (07:41)
[2018-12-26 07:47] LABS: AGAP 15; BUN 11 mg/dL (8-22); CALCIUM 8.8 mg/dL (8.8-10.2); CHLORIDE 103 mmol/L (98-107); COSMO 286; CREATININE 0.7 mg/dL (0.7-1.2); ESTIMATED GFR > 60; GLUCOSE 123 mg/dL (70-104); SODIUM 143 mmol/L (136-145); TCO2 25 mmol/L (25-35)
[2018-12-26] MEDS: LASIX PO SCH (08:07)
[2018-12-26] MEDS: XANAX PO SCH ×2 (08:07→21:40)
[2018-12-26] MEDS: PROZAC PO SCH (08:07)
[2018-12-26] MEDS: PRINIVIL PO SCH ×2 (08:07→20:38)
[2018-12-26] MEDS: TOPROL XL PO SCH (08:07)
[2018-12-26] MEDS: DILAUDID IV PRN (13:26)
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
--- NOTE | 2018-12-26 15:39 | ECHO REPORT ---
ORDER DATE: 12/26/2018 INTERPRETING PHYSICIAN: Dr. Cristian Romero ECHOCARDIOGRAPHIC MEASUREMENTS: 1. Interventricular septum: 1.4 cm. 2. Left ventricular posterior wall: 1.5 cm. 3. Diastolic diameter: 4.1 cm. 4. Left atrium: 3.8. 5. Aorta: 4 cm. SUMMARY OF THE 2-DIMENSIONAL IMAGIN. Ascending aorta upper limit of normal. 2. Mitral valve leaflets were normal. 3. Tricuspid valve was normal. 4. Aortic valve leaflets were trileaflet. 5. Pulmonic valve not well visualized. 6. There is mild mitral regurgitation. 7. Mild tricuspid regurgitation. 8. Peak velocity across the tricuspid valve less than 2 meters per second. 9. There is left atrial enlargement. 10. There is mild diastolic dysfunction. 11. Normal left ventricular cavity size. 12. Concentric left ventricular hypertrophy. 13. Estimated ejection fraction of 55%. 14. There is mild hypokinesis at the base of the inferior wall. 15. There is no aortic stenosis or regurgitation. 16. Peak velocity across the aortic valve less than 2 meters per second. 17. By Doppler studies, there is no aortic stenosis or regurgitation. 18. There is no pericardial effusion or obvious intracardiac mass or thrombus seen. 19. Would recommend transesophageal echocardiogram to rule out endocarditis if clinically relevant, as the indications for the echocardiogram was to rule out endocarditis. cc: MD Moises Lopez MD
--- NOTE | 2018-12-26 16:10 | Diag Imaging Result Doc PS360 ---
MRI LOW EXT JT W/WO CON-LEFT - 12/26/2018 INDICATION: r/o osteo TECHNIQUE: MRI left ankle without and with intravenous contrast COMPARISON: X-rays from 12/23/2018 FINDINGS: There is some bone marrow edema with enhancement at the bases of the fourth and fifth metatarsals, at the joint with the cuboid. This is either due to high-grade degeneration or a nondisplaced fracture. There is extensive hardware in the ankle. No obvious bone marrow edema or abnormal enhancement of the ankle itself. The talus, navicular, and calcaneus appear normal. No mass or fluid collections. Soft tissues appear normal. IMPRESSION: 1. High-grade degeneration versus nondisplaced fracture at the joint between the cuboid and fourth and fifth metatarsal bases. 2. Otherwise, no acute disease or complication. Electronically signed by Bran Lujan 12/26/2018 4:08 PM
[2018-12-26] MEDS: CRESTOR PO SCH (20:38)
[2018-12-26] MEDS: ZYPREXA PO SCH (20:38)
[2018-12-26] MEDS: ABILIFY PO SCH (20:38)
[2018-12-26] MEDS: PRILOSEC PO SCH (20:38)
[2018-12-26] MEDS: NORVASC PO SCH (20:38)
[2018-12-26] MEDS: VANCOMYCIN 1,750 MG in NS 250 ML IV SCH (21:13)
[2018-12-27] MEDS: LOVENOX SUBQ SCH (05:48)
[2018-12-27 07:29] LABS: BASO# 0.02 X1000 (0.0-0.2); BASO% 0.3 % (0.0-0.8); EOS% 7.5 % (0.0-10.0); HEMATOCRIT 35.1 % (42.0-52.0); HEMOGLOBIN 10.7 g/dL (14.0-18.0); LYMPH# 2.31 X1000 (1.2-3.4); LYMPH% 29.1 % (20.5-51.1); MCH 25.5 PG (27-31); MCHC 30.5 g/dL (33-37); MCV 83.8 FL (81-99); MONO# 0.97 X1000 (0.11-0.59); MONO% 12.2 % (1.7-9.3); MPV 12.1 FL (7.4-10.4); NEUT# 4.05 X1000 (1.4-6.5); NEUT% 50.9 % (42.2-75.2); PLT 188 X1000 (130-400); RBC 4.19 XMIL (4.7-6.1); RDW 14.9 % (11.5-14.5); WBC 7.95 X1000 (4.8-10.8)
[2018-12-27 07:54] LABS: AGAP 14; BUN 15 mg/dL (8-22); CALCIUM 8.9 mg/dL (8.8-10.2); CHLORIDE 101 mmol/L (98-107); COSMO 277; CREATININE 0.7 mg/dL (0.7-1.2); ESTIMATED GFR > 60; GLUCOSE 134 mg/dL (70-104); POTASSIUM 3.2 mmol/L (3.5-5.1); SODIUM 137 mmol/L (136-145); TCO2 22 mmol/L (25-35)
[2018-12-27] MEDS: SYMBICORT 160/4.5 MICROGM INHALER INH SCH (08:22)
[2018-12-27] MEDS ORDERED: KLOR-CON PO ONE (09:03)
[2018-12-27] MEDS: VANCOMYCIN 1,750 MG in NS 250 ML IV SCH ×2 (09:22→21:33)
[2018-12-27] MEDS: PRINIVIL PO SCH ×2 (09:26→21:33)
[2018-12-27] MEDS: XANAX PO SCH (11:07)
[2018-12-27] MEDS: PROZAC PO SCH (11:07)
[2018-12-27] MEDS: TOPROL XL PO SCH (11:08)
[2018-12-27] MEDS: NORCO-10 PO PRN ×2 (11:08→18:31)
[2018-12-27] MEDS: LASIX PO SCH (11:08)
[2018-12-27] MEDS: ZYPREXA PO SCH (21:33)
[2018-12-27] MEDS: NORVASC PO SCH (21:33)
[2018-12-27] MEDS: PRILOSEC PO SCH (21:33)
[2018-12-27] MEDS: ABILIFY PO SCH (21:33)
[2018-12-27] MEDS: CRESTOR PO SCH (21:34)
[2018-12-28] MEDS: XANAX PO SCH ×3 (04:41→20:03)
[2018-12-28] MEDS: LOVENOX SUBQ SCH (05:35)
[2018-12-28 07:21] LABS: BASO# 0.02 X1000 (0.0-0.2); BASO% 0.3 % (0.0-0.8); EOS# 0.57 X1000 (0.0-0.7); EOS% 7.7 % (0.0-10.0); HEMATOCRIT 35.4 % (42.0-52.0); HEMOGLOBIN 10.9 g/dL (14.0-18.0); LYMPH# 2.62 X1000 (1.2-3.4); LYMPH% 35.4 % (20.5-51.1); MCH 25.9 PG (27-31); MCHC 30.8 g/dL (33-37); MCV 84.1 FL (81-99); MONO# 1.02 X1000 (0.11-0.59); MONO% 13.8 % (1.7-9.3); MPV 12.5 FL (7.4-10.4); NEUT# 3.18 X1000 (1.4-6.5); NEUT% 42.8 % (42.2-75.2); PLT 198 X1000 (130-400); RBC 4.21 XMIL (4.7-6.1); RDW 14.8 % (11.5-14.5); WBC 7.41 X1000 (4.8-10.8)
[2018-12-28] MEDS: SYMBICORT 160/4.5 MICROGM INHALER INH SCH (07:38)
[2018-12-28] MEDS: DUONEB (A & A) INH PRN ×3 (07:38→19:29)
[2018-12-28 07:57] LABS: AGAP 14; BUN 18 mg/dL (8-22); CHLORIDE 104 mmol/L (98-107); COSMO 284; CREATININE 0.7 mg/dL (0.7-1.2); ESTIMATED GFR > 60; GLUCOSE 121 mg/dL (70-104); POTASSIUM 3.9 mmol/L (3.5-5.1); SODIUM 141 mmol/L (136-145); TCO2 23 mmol/L (25-35)
--- NOTE | 2018-12-28 08:05 | ORTHOPAEDICS PROGRESS NOTE ---
DATE: 12/28/2018 SUBJECTIVE: Mr. Nichols is lying in bed this morning. Overall pain is controlled. OBJECTIVE: On right lower extremity exam, he still has his wounds, one on the medial side and then a very small one on the lateral side. He has some swelling to the ankle, and a little bit tender to palpation still to the ankle. Left lower extremity exam shows all incisions are well healed. He is moving that ankle really well. ASSESSMENT: 1. Bacteremia. 2. Right lower extremity wounds. 3. Right ankle instability. PLAN: I discussed with Mr. Nichols about his ankle. We did aspirate the ankle the other day, and it was a dry tap. I was pretty confident that we were in the ankle joint. I discussed with him that the ankle is probably not infected overall. We are going to still treat him with his IV antibiotics since he had bacteremia. Overall, this ankle is not stable, and if it does bother him a pretty good bit, then I would recommend more than likely a tibiotalocalcaneal fusion for him in the future. We do want to make sure that his bacteremia is completely cleared, and ideally his wounds are healed on this right lower extremity before proceeding with that. We will just keep an eye on things. If he is discharged, I would like to see him in clinic in about a week or 2 to continue to follow his wounds. cc: Jose Francisco Mccain MD
[2018-12-28] MEDS: PROZAC PO SCH (09:57)
[2018-12-28] MEDS: LASIX PO SCH (09:57)
[2018-12-28] MEDS: TOPROL XL PO SCH (09:57)
[2018-12-28] MEDS: VANCOMYCIN 1,750 MG in NS 250 ML IV SCH ×2 (09:58→20:03)
[2018-12-28] MEDS: PRINIVIL PO SCH ×2 (09:58→20:04)
[2018-12-28] MEDS: NORCO-10 PO PRN ×3 (10:59→20:04)
[2018-12-28 12:49] LABS: INR 1.07
[2018-12-28] MEDS ORDERED: NS 250 ML ONE (13:10)
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
[2018-12-28] MEDS: CRESTOR PO SCH (20:03)
[2018-12-28] MEDS: ZYPREXA PO SCH (20:04)
[2018-12-28] MEDS: ABILIFY PO SCH (20:04)
[2018-12-28] MEDS: PRILOSEC PO SCH (20:05)
[2018-12-28] MEDS: NORVASC PO SCH (20:05)
[2018-12-29] MEDS: NORCO-10 PO PRN ×4 (00:27→19:54)
[2018-12-29] MEDS: LOVENOX SUBQ SCH (05:27)
[2018-12-29] MEDS: DUONEB (A & A) INH PRN ×2 (07:35→20:21)
[2018-12-29] MEDS: SYMBICORT 160/4.5 MICROGM INHALER INH SCH (07:35)
[2018-12-29] MEDS: PRINIVIL PO SCH ×3 (08:41→20:13)
[2018-12-29] MEDS: LASIX PO SCH (08:41)
[2018-12-29] MEDS: PROZAC PO SCH (08:41)
[2018-12-29] MEDS: VANCOMYCIN 1,750 MG in NS 250 ML IV SCH (08:41)
[2018-12-29] MEDS: TOPROL XL PO SCH (08:41)
[2018-12-29] MEDS: XANAX PO SCH ×3 (08:41→20:13)
--- NOTE | 2018-12-29 13:49 | PROGRESS NOTE ---
DATE: 12/29/2018 SUBJECTIVE: Today Mr. Nichols refers to be doing fairly okay, no new complaints. There was no family member at the bedside at the time of the encounter. OBJECTIVELY: Vitals: Blood pressure is 94/59, pulse of 78, respirations 18, temperature is 98.0 degrees. The patient's O2 saturation is between 93 to 99. General: Mr. Nichols is a 58-year-old gentleman. He is in bed in no distress. HEENT: Mucosa is pink and moist. Anicteric. Acyanotic. Neck: Supple. Chest: Good air entry bilaterally. There was no crepitation, no rhonchi. Cardiovascular: Regular rate and rhythm GI: The abdomen is soft, nontender. Bowel sounds present. Extremities: Lower extremities show all incisions, as well as a small wound area that has a very clean base, no ulceration. 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 LABORATORY DATA: None for today. Glucose is 146. So far, repeat blood culture has been negative. The left leg wound also shows Staphylococcus MRSA. ASSESSMENT: 1. MRSA bacteremia, presumably from left wound infection. 2. Multiple lower extremity orthopedic surgeries with hardware associated with MRSA wound infection concerning for hardware involvement. The patient is going to be treated for possible osteomyelitis for a total of 8 weeks of IV antibiotics. 3. Diabetes mellitus. 4. History of schizophrenia. The patient is on antipsychotics. 5. Hypertension. Controlled. PLAN: In general, I think Mr. Nichols is doing well. PICC line was put in yesterday and it is functioning well. Will be pending social work final arrangement for disposition. We are going to discontinue the Martinez catheter today. cc: Chris Perez MD
[2018-12-29] MEDS: CRESTOR PO SCH ×2 (19:54→20:13)
[2018-12-29] MEDS: ZYPREXA PO SCH ×2 (19:54→20:13)
[2018-12-29] MEDS: NORVASC PO SCH ×2 (19:54→20:13)
[2018-12-29] MEDS: ABILIFY PO SCH ×2 (19:54→20:13)
[2018-12-29] MEDS: PRILOSEC PO SCH ×2 (19:54→20:13)
[2018-12-30] MEDS: NORCO-10 PO PRN ×3 (05:49→20:20)
[2018-12-30] MEDS: LOVENOX SUBQ SCH (05:49)
[2018-12-30] MEDS: SYMBICORT 160/4.5 MICROGM INHALER INH SCH (07:37)
[2018-12-30] MEDS: DUONEB (A & A) INH PRN (07:37)
[2018-12-30] MEDS: TOPROL XL PO SCH (08:22)
[2018-12-30] MEDS: XANAX PO SCH ×2 (08:22→20:20)
[2018-12-30] MEDS: LASIX PO SCH (08:22)
[2018-12-30] MEDS: PRINIVIL PO SCH ×2 (08:22→20:20)
[2018-12-30] MEDS: PROZAC PO SCH (08:23)
[2018-12-30] MEDS: VANCOMYCIN 2,000 MG in NS 500 ML IV SCH (10:41)
--- NOTE | 2018-12-30 11:53 | PROGRESS NOTE ---
DATE: 12/30/2018 SUBJECTIVE: This morning, Mr. Nichols refers to be doing fairly okay. No new complaints. OBJECTIVE: Vital Signs: Blood pressure 150/69, pulse of 71, respirations are 19, temperature is 97.4 degrees. General Examination: Mr. Nichols is a 58-year-old, gentleman. He is in bed. No distress. HEENT: Mucosa is pink and moist. Anicteric. Acyanotic. Neck: Supple. Chest: Clear to auscultation. No crepitations. No rhonchi. Cardiovascular: Regular rate and rhythm. No murmurs, no rubs, no gallops. GI: Abdomen is soft, nontender. Bowel sounds present. Extremities: No pedal edema. Some well-healed lower extremity scars. The left lower extremity is in a sterile dressing. 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 No lab work for this morning. The patient continues to be on vancomycin per pharmacy protocol, has been switched to 2000 q.24 by ID. ASSESSMENT: 1. Methicillin-resistant Staphylococcus aureus bacteremia, presumably from left wound infection. Subsequent blood cultures have been negative. 2. Multiple lower extremity orthopedic surgeries with hardware, associated with methicillin- resistant Staphylococcus aureus wound infection, concerning for osteomyelitis with hardware involvement. The patient is getting intravenous antibiotics with plan to complete 8 weeks as per infectious disease. 3. Diabetes mellitus, controlled. 4. Hypertension. 5. History of schizophrenia. We will continue with the patient's antipsychotics. 6. Disposition, still pending social work arrangement. cc: Chris Perez MD
[2018-12-30] MEDS: CRESTOR PO SCH (20:19)
[2018-12-30] MEDS: ZYPREXA PO SCH (20:20)
[2018-12-30] MEDS: ABILIFY PO SCH (20:20)
[2018-12-30] MEDS: NORVASC PO SCH (20:20)
[2018-12-30] MEDS: PRILOSEC PO SCH (20:20)
[2018-12-31] MEDS: NORCO-10 PO PRN ×2 (03:07→16:29)
[2018-12-31] MEDS: MOTRIN PO PRN (03:14)
[2018-12-31] MEDS: LOVENOX SUBQ SCH (06:54)
[2018-12-31] MEDS: DUONEB (A & A) INH PRN ×2 (07:46→15:47)
[2018-12-31] MEDS: SYMBICORT 160/4.5 MICROGM INHALER INH SCH (07:46)
[2018-12-31] MEDS: XANAX PO SCH (08:13)
[2018-12-31] MEDS: TOPROL XL PO SCH (08:14)
[2018-12-31] MEDS: LASIX PO SCH (08:14)
[2018-12-31] MEDS: PRINIVIL PO SCH (08:14)
[2018-12-31] MEDS: PROZAC PO SCH (08:14)
[2018-12-31] MEDS: VANCOMYCIN 2,000 MG in NS 500 ML IV SCH (11:24)
[2018-12-31 12:20] VITALS: BP 109/62
[2018-12-31 13:16] LABS: BASO# 0.03 X1000 (0.0-0.2); BASO% 0.3 % (0.0-0.8); EOS# 0.61 X1000 (0.0-0.7); EOS% 5.8 % (0.0-10.0); HEMATOCRIT 37.8 % (42.0-52.0); HEMOGLOBIN 11.1 g/dL (14.0-18.0); IMM GRAN# 0.03 X1000 (0.0-0.04); IMM GRAN% 0.3 % (0.0-0.5); LYMPH# 2.74 X1000 (1.2-3.4); LYMPH% 26.2 % (20.5-51.1); MCH 25.5 PG (27-31); MCHC 29.4 g/dL (33-37); MCV 86.7 FL (81-99); MONO# 0.93 X1000 (0.11-0.59); MONO% 8.9 % (1.7-9.3); MPV 11.8 FL (7.4-10.4); NEUT% 58.5 % (42.2-75.2); PLT 244 X1000 (130-400); RBC 4.36 XMIL (4.7-6.1); RDW 14.7 % (11.5-14.5); WBC 10.44 X1000 (4.8-10.8)
[2018-12-31 13:37] LABS: EOS 2 % (1-10); LYMPHS 40 % (21-51); NRBC 1 % (0-0); SEGS 58 % (42-75)
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
--- NOTE | 2018-12-31 15:13 | INFECTIOUS DISEASE PROGRESS NO ---
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 MEDICATIONS: The patient is receiving vancomycin. This is day 6 of treatment with vancomycin. PHYSICAL EXAMINATION: Vital Signs: Temperature is 97.6 degrees, pulse 71, respirations 15, blood pressure is 131/86. General: This is a chronically middle-aged male. He is in no acute distress. Head, eyes, ears, nose, and throat: He can hear my spoken words and see near objects. I did not see any white patches in his mouth. He has poor oral hygiene. Neck: No pain with movement. Lungs: Clear to auscultation. Cardiovascular: Heart rate is regular. Abdomen: Soft and nontender. Bone, joints, muscles: The left ankle is erythematous and swollen. The patient on the in his right arm has a PICC in place. The site is not erythematous or tender. Neurologic: The patient is awake. He can move his extremities. There is no tremor. LAB AND X-RAY: There is no new lab or x-ray for today. 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 My plan is to continue treatment with vancomycin for 50 more days. She has already had 6 days of treatment. The first day of treatment with vancomycin was the first day that the repeat blood cultures were sterile. I plan to have the patient come to my office at 25 days and then in 50 days for appointments. If Dr. Mccain does not feel surgery is indicated to remove the patient's metal in his ankle, then I will plan after finishing the IV vancomycin to put the patient on long-term p.o. antibiotic such as Septra DS once a day or if we cannot use sulfa, then clindamycin 300 mg p.o. every 12 hours. I am writing orders for the residential. They include the following: The patient will have vancomycin 2000 mg IV daily for 50 days. The modifications of the vancomycin dose will be made by the pharmacist that the residential will get to manage the vancomycin dose. I am also going to order for a total of 7 weeks to have the following lab work: CBC with differential and creatinine, and a vancomycin trough level every Monday and a creatinine every for 50 days. I plan to have the patient have visits at my office at 25 days and 50 days. Also, I am going to write that after the last dose of vancomycin goes in then the PICC will be removed. COMORBIDITIES: Include diabetes mellitus, cigarette smoking, COPD, altered mental status with schizophrenia and coronary artery disease. cc: Tj Roland MD
== END 2018-12-31 17:00 | DRG 863 ==
LOC: SUPCPDRO → ED 16:41 → OBSVTOIN 23:43 → SUATTDRO 23:43 → INTOOBSV 23:43 → 3N 23:43
PROVIDERS: ATTEND Internal Medicine